=== PATIENT | male | born 1955 | race Two or more races ===

== ENCOUNTER 2019-03-12 11:36 | Emergency (ER) | payer MEDICAID ==
[~2019-03-12] VITALS: Ht 170.2 cm; Wt 85.3 kg
[2019-03-12 13:18] LABS: Basophils # (auto) 0 uL; Basophils % (auto) 0.4 % (0.0-2.0); Eosinophils # (auto) 0.1 uL; Hematocrit 34.2 % (41.0-53.0); Hemoglobin 11.3 g/dL (13.5-17.5); Lymphocytes # (auto) 1.7 uL; Lymphocytes % (auto) 19.1 % (10.0-50.0); Mean Corpuscular Hemoglobin 27.5 pg (28.0-32.0); Mean Corpuscular Hgb Conc. 33.2 g/dL (32.0-36.0); Neutrophils # (auto) 6.4 uL; Nucleated Red Blood Cells % 0.1 %; Red Cell Distribution Width 14.5 % (11.8-14.3); White Blood Cell 8.9 10^3/uL (4.4-10.8)
[2019-03-12 13:21] LABS: Eosinophils % (auto) 1.4 % (0.0-7.0); Monocytes # (auto) 0.6 uL; Neutrophils % (auto) 72.1 % (37.0-80.0); Platelet Count (auto) 459 10^3/uL (140-450); Red Blood Cells 4.12 10^6/uL (4.5-5.90)
[2019-03-12 13:36] LABS: Alanine Aminotransferase 34 U/L (16-61); Albumin 1.6 g/dL (3.4-5.0); Anion Gap 6 (5-15); Aspartate Aminotransferase 30 U/L (15-37); BUN/Creatinine Ratio 14.4; Blood Urea Nitrogen 14 mg/dL (7-18); Calcium 8.2 mg/dL (8.5-10.1); Carbon Dioxide 27 mmol/L (21-32); Chloride 109 mmol/L (98-107); GFR African American 101 mL/min; GFR Non-African American 83 mL/min; Glucose 245 mg/dL (74-106); Potassium 3.9 mmol/L (3.5-5.1); Sodium 142 mmol/L (136-145)
[2019-03-12 13:40] LABS: Alkaline Phosphatase 217 U/L (45-117); Bilirubin, Total 0.4 mg/dL (0.2-1.0); Total Protein 6.4 g/dL (6.4-8.2)
[2019-03-12] MEDS ORDERED: cloNIDine HCL 0.1 MG TAB PO ONE (17:00)
[2019-03-12] MEDS ORDERED: cloNIDine HCL 0.1 MG TAB ONE (17:07)
[2019-03-12 18:18] VITALS: BP 142/78
== END 2019-03-12 18:45 | disposition home or self-care (01) ==
LOC: ER 11:41
DX: I16.0 Hypertensive urgency (principal); R73.9 Hyperglycemia, unspecified; Z90.49 Acquired absence of other specified parts of digestive tract
CPT/HCPCS: 36415; 71046; 80053; 83036; 84484; 85025; 93005

== ENCOUNTER 2021-04-23 11:19 | Emergency (ER) | payer MEDICAID ==
[~2021-04-23] VITALS: Ht 167.6 cm; Wt 81.6 kg
[2021-04-23 12:45] LABS: Basophils # (auto) 0.1 10 ^3/uL (0-0.2); Basophils % (auto) 1.3 % (0.0-2.0); Eosinophils # (auto) 0.2 10 ^3/uL (0-0.8); Eosinophils % (auto) 3.2 % (0.0-7.0); Hematocrit 37.9 % (41.0-53.0); Hemoglobin 12.7 g/dL (13.5-17.5); Lymphocytes # (auto) 2.2 10 ^3/uL (0.4-5.4); Lymphocytes % (auto) 27.9 % (10.0-50.0); Mean Corpuscular Hemoglobin 27.5 pg (28.0-32.0); Mean Corpuscular Hgb Conc. 33.4 g/dL (32.0-36.0); Mean Corpuscular Volume 82.3 fL (80.0-100.0); Monocytes # (auto) 0.4 10 ^3/uL (0-1.3); Monocytes % (auto) 5.8 % (0.0-12.0); Neutrophils # (auto) 4.8 10 ^3/uL (1.6-8.6); Neutrophils % (auto) 61.8 % (37.0-80.0); Nucleated Red Blood Cells % 0.2 %; Red Blood Cells 4.61 10^6/uL (4.5-5.90); Red Cell Distribution Width 14.3 % (11.8-14.3); White Blood Cell 7.7 10^3/uL (4.4-10.8)
[2021-04-23 13:02] LABS: Albumin 2.8 g/dL (3.4-5.0); Calcium 8.4 mg/dL (8.5-10.1); Potassium 4.6 mmol/L (3.5-5.1)
[2021-04-23 13:06] LABS: BUN/Creatinine Ratio 28.3; Bilirubin, Total 0.3 mg/dL (0.2-1.0)
[2021-04-23] MEDS ORDERED: LOSA25TA38 PO (14:57)
[2021-04-23 15:16] VITALS: BP 158/72
== END 2021-04-23 15:18 | disposition home or self-care (01) ==
LOC: ER 11:19
DX: I16.0 Hypertensive urgency (principal); Z90.49 Acquired absence of other specified parts of digestive tract
CPT/HCPCS: 36415; 80053; 84484; 85025; 93005

== ENCOUNTER 2022-01-31 18:13 | Inpatient (IN) | payer OTHER, MEDICAID ==
[~2022-01-31] VITALS: Ht 167.6 cm; Wt 86.4 kg
[~2022-01-31 18:13] MED LIST: LOSA25TA38 PO
[2022-01-31] MEDS ORDERED: FUROSEMIDE 40 MG/4 ML VIAL IV ONE ×2 (19:00→22:30)
[2022-01-31 19:18] LABS: Basophils # (auto) 0.1 10 ^3/uL (0-0.2); Eosinophils # (auto) 0.2 10 ^3/uL (0-0.8); Eosinophils % (auto) 2.7 % (0.0-7.0); Hematocrit 34.6 % (41.0-53.0); Hemoglobin 10.8 g/dL (13.5-17.5); Lymphocytes # (auto) 1.5 10 ^3/uL (0.4-5.4); Lymphocytes % (auto) 21.7 % (10.0-50.0); Mean Corpuscular Hemoglobin 26.6 pg (28.0-32.0); Mean Corpuscular Hgb Conc. 31.3 g/dL (32.0-36.0); Monocytes # (auto) 0.5 10 ^3/uL (0-1.3); Monocytes % (auto) 6.5 % (0.0-12.0); Neutrophils # (auto) 4.7 10 ^3/uL (1.6-8.6); Neutrophils % (auto) 68.1 % (37.0-80.0); Nucleated Red Blood Cells % 0.2 %; Red Blood Cells 4.07 10^6/uL (4.5-5.90); Red Cell Distribution Width 15.2 % (11.8-14.3)
[2022-01-31 19:38] LABS: Albumin 2.7 g/dL (3.4-5.0); Calcium 8.6 mg/dL (8.5-10.1); Potassium 5.5 mmol/L (3.5-5.1)
[2022-01-31 19:42] LABS: Bilirubin, Total 0.3 mg/dL (0.2-1.0); Total Protein 6.6 g/dL (6.4-8.2)
[2022-01-31] MEDS ORDERED: ASPirin 81 mg TAB PO ONE (21:00)
[2022-01-31] MEDS ORDERED: ALBUMIN 25% 100 ML IV ONE (22:30)
[2022-01-31] MEDS ORDERED: DOCUSATE SOD 100 MG CAP PO PRN (22:30)
[2022-01-31] MEDS ORDERED: ONDANSETRON HCL 4 MG/2 ML VIAL IV PRN (22:30)
[2022-01-31] MEDS ORDERED: HYDROcodone-ACET 5/325MG TAB PO PRN (22:30)
[2022-01-31] MEDS ORDERED: hydrALAZINE HCL 20 MG/ML VL IV PRN (22:30)
[2022-01-31] MEDS ORDERED: DEXTROSE (50%) 50ML SYRG IV PRN (22:30)
[2022-01-31] MEDS ORDERED: ACETAMINOPHEN 325 MG TAB PO PRN (22:30)
[2022-01-31] MEDS ORDERED: IPRATROPIUM BROM 0.5 MG/2.5ML INH SOL NEB PRN (22:30)
[2022-01-31] MEDS ORDERED: ALBUTEROL SULF 2.5 MG/0.5ML(0.5%) NEB SOLN NEB PRN (22:30)
[2022-01-31] MEDS ORDERED: MORPHINE SULFATE INJ 2 MG/ml SYRG IV PRN (23:15)
[2022-01-31] MEDS ORDERED: NITROGLYCERIN 0.4 MG SL TAB SL PRN (23:15)
[2022-02-01] MEDS ORDERED: SODIUM ZIRCONIUM CYCL 10 GM PAK PO ONE (01:00)
[2022-02-01] MEDS ORDERED: HEPARIN SODIUM (PORCINE) 5000 UNITS/ML 1ML VIAL IV ONE (01:00)
[2022-02-01 01:46] VITALS: BP 129/65
[2022-02-01] MEDS: SODIUM CHLOR 0.9% PF (SALINE LOCK) 10ML VIAL/SYR IV SCH ×3 (06:00→21:34)
[2022-02-01] MEDS: ACCU-CHEK COMFORT CURVE STRIP VI SCH ×4 (08:26→21:40)
[2022-02-01] MEDS: InsuLIN REG 1unit/0.01ml Soln (100units/ml) SC SCH ×4 (08:27→21:46)
[2022-02-01] MEDS ORDERED: HEPARIN SODIUM (PORCINE) 5000 UNITS/ML 1ML VIAL SC SCH (10:00)
[2022-02-01 10:03] LABS: Basophils # (auto) 0 10 ^3/uL (0-0.2); Eosinophils # (auto) 0.3 10 ^3/uL (0-0.8); Lymphocytes # (auto) 1.9 10 ^3/uL (0.4-5.4); Monocytes # (auto) 0.6 10 ^3/uL (0-1.3); White Blood Cell 8.7 10^3/uL (4.4-10.8)
[2022-02-01 10:04] LABS: Basophils % (auto) 0.3 % (0.0-2.0); Eosinophils % (auto) 3.8 % (0.0-7.0); Hematocrit 31.9 % (41.0-53.0); Hemoglobin 9.9 g/dL (13.5-17.5); Lymphocytes % (auto) 22.2 % (10.0-50.0); Mean Corpuscular Hemoglobin 26.3 pg (28.0-32.0); Mean Corpuscular Hgb Conc. 31.1 g/dL (32.0-36.0); Mean Corpuscular Volume 84.5 fL (80.0-100.0); Monocytes % (auto) 6.4 % (0.0-12.0); Neutrophils # (auto) 5.8 10 ^3/uL (1.6-8.6); Neutrophils % (auto) 67.3 % (37.0-80.0); Nucleated Red Blood Cells % 0.2 %; Red Blood Cells 3.77 10^6/uL (4.5-5.90); Red Cell Distribution Width 14.9 % (11.8-14.3)
[2022-02-01 11:08] LABS: Potassium 4.5 mmol/L (3.5-5.1)
[2022-02-01 11:15] LABS: Albumin 2.8 g/dL (3.4-5.0); BUN/Creatinine Ratio 25.4; Calcium 8.6 mg/dL (8.5-10.1)
[2022-02-01 11:17] LABS: Bilirubin, Total 0.4 mg/dL (0.2-1.0); Total Protein 6.4 g/dL (6.4-8.2)
[2022-02-01] MEDS ORDERED: metOLazone 5 MG TAB PO ONE (11:30)
[2022-02-01] MEDS ORDERED: ENOXAPARIN SOD 100 MG/1 ML SYRINGE SC ONE (11:30)
[2022-02-01] MEDS: ASPirin 81 mg TAB PO SCH (11:35)
[2022-02-01] MEDS: FAMOTIDINE (10MG/ML) 2ML VL IV SCH ×2 (11:35→21:29)
[2022-02-01] MEDS ORDERED: OPTISON 3ml Vial for INJ IV ONE ×2 (11:39→12:30)
[2022-02-01] MEDS: FUROSEMIDE 40 MG/4 ML VIAL IV SCH (12:09)
[2022-02-01 12:18] VITALS: BP 158/75
[2022-02-01 13:00] VITALS: BP 158/75
[2022-02-01 17:00] VITALS: BP 174/75
[2022-02-01] MEDS ORDERED: DORZ2SOL26 EACHEYE (18:56)
[2022-02-01] MEDS ORDERED: LATA0.0019 OP/OT (18:56)
[2022-02-01] MEDS ORDERED: CYCL1SOL20 LEFTEYE (18:56)
[2022-02-01] MEDS ORDERED: TIMO0.5S32 OP (18:56)
[2022-02-01] MEDS ORDERED: PRED1SUS4 OP/OT (18:56)
[2022-02-01] MEDS ORDERED: BRIM0.2S17 EACHEYE (18:56)
[2022-02-01] MEDS: ATORVASTATIN 20 MG TAB PO SCH (21:28)
[2022-02-01 22:00] VITALS: BP 154/61
[2022-02-02 02:14] LABS: Urine Bacteria FEW /hpf (None Seen); Urine Blood 1+ /uL (Negative); Urine Specific Gravity 1.013 (1.001-1.035); Urine WBC 2 /hpf (0 - 3)
[2022-02-02 05:00] VITALS: BP 123/86
[2022-02-02] MEDS: InsuLIN REG 1unit/0.01ml Soln (100units/ml) SC SCH ×4 (06:19→21:43)
[2022-02-02] MEDS: ACCU-CHEK COMFORT CURVE STRIP VI SCH ×4 (06:19→21:39)
[2022-02-02] MEDS: SODIUM CHLOR 0.9% PF (SALINE LOCK) 10ML VIAL/SYR IV SCH ×3 (06:19→21:39)
[2022-02-02 07:05] LABS: INR 1.18 (0.9-1.15); Partial Thromboplastin Time 28.9 sec (24.6-33.4)
[2022-02-02 09:00] VITALS: BP 128/48
[2022-02-02] MEDS: FAMOTIDINE (10MG/ML) 2ML VL IV SCH ×2 (10:06→21:38)
[2022-02-02] MEDS: ASPirin 81 mg TAB PO SCH (10:06)
[2022-02-02] MEDS: FUROSEMIDE 40 MG/4 ML VIAL IV SCH (10:07)
[2022-02-02 12:23] LABS: BUN/Creatinine Ratio 27.2; Calcium 8.9 mg/dL (8.5-10.1); Potassium 4.6 mmol/L (3.5-5.1)
[2022-02-02 13:00] VITALS: BP 144/59
[2022-02-02 14:10] LABS: Protein, Urine 301.9 mg/dL (0.0-11.9)
[2022-02-02 17:00] VITALS: BP 153/64
[2022-02-02 20:00] VITALS: BP 136/70
[2022-02-02] MEDS: ATORVASTATIN 20 MG TAB PO SCH (21:39)
[2022-02-02 22:00] VITALS: BP 136/70
[2022-02-03] MEDS: SODIUM CHLOR 0.9% PF (SALINE LOCK) 10ML VIAL/SYR IV SCH ×3 (05:36→22:33)
[2022-02-03 06:00] VITALS: BP 134/49
[2022-02-03] MEDS: ACCU-CHEK COMFORT CURVE STRIP VI SCH ×4 (06:43→22:28)
[2022-02-03] MEDS: InsuLIN REG 1unit/0.01ml Soln (100units/ml) SC SCH ×4 (06:47→22:29)
[2022-02-03 09:00] VITALS: BP 123/40
[2022-02-03] MEDS: FUROSEMIDE 40 MG/4 ML VIAL IV SCH (10:32)
[2022-02-03] MEDS: FAMOTIDINE (10MG/ML) 2ML VL IV SCH ×2 (10:32→22:42)
[2022-02-03] MEDS: ASPirin 81 mg TAB PO SCH (10:33)
[2022-02-03 13:00] VITALS: BP_SYST 155; BP_SYST 160; BP_DIAS 68; BP_DIAS 72
[2022-02-03] MEDS ORDERED: HEPARIN SODIUM (PORCINE) 5000 UNITS/ML 1ML VIAL SC ONE (15:00)
[2022-02-03] MEDS ORDERED: CARVEDILOL 12.5 MG TAB PO ONE (15:00)
[2022-02-03 17:00] VITALS: BP 159/63
[2022-02-03] MEDS: DOBUTamine 1000MCG/ML 250 ML IV SCH (17:18)
[2022-02-03 22:00] VITALS: BP 108/43
[2022-02-03] MEDS: ACETYLCYSTEINE ORAL for CIN 20%(200MG/ML) 4ML PO SCH (22:00)
[2022-02-03] MEDS: ATORVASTATIN 20 MG TAB PO SCH (22:24)
[2022-02-03] MEDS: CARVEDILOL 12.5 MG TAB PO SCH (22:25)
[2022-02-03] MEDS: HEPARIN SODIUM (PORCINE) 5000 UNITS/ML 1ML VIAL SC SCH (22:33)
[2022-02-04] VITALS (10 sets, daily range): BP systolic 88–125; BP diastolic 34–61
[2022-02-04] MEDS: SODIUM CHLOR 0.9% PF (SALINE LOCK) 10ML VIAL/SYR IV SCH ×3 (05:38→22:49)
[2022-02-04] MEDS: InsuLIN REG 1unit/0.01ml Soln (100units/ml) SC SCH ×4 (06:03→22:48)
[2022-02-04] MEDS: ACCU-CHEK COMFORT CURVE STRIP VI SCH ×4 (06:03→22:49)
[2022-02-04 06:47] LABS: INR 1.15 (0.9-1.15); Partial Thromboplastin Time 26.6 sec (24.6-33.4)
[2022-02-04 06:50] LABS: Calcium 8.6 mg/dL (8.5-10.1); Potassium 4.8 mmol/L (3.5-5.1)
[2022-02-04] MEDS: FUROSEMIDE 40 MG/4 ML VIAL IV SCH (09:21)
[2022-02-04] MEDS: ASPirin 81 mg TAB PO SCH (09:21)
[2022-02-04] MEDS: CARVEDILOL 12.5 MG TAB PO SCH ×2 (09:22→22:42)
[2022-02-04] MEDS: ACETYLCYSTEINE ORAL for CIN 20%(200MG/ML) 4ML PO SCH ×2 (09:23→22:49)
[2022-02-04] MEDS: HEPARIN SODIUM (PORCINE) 5000 UNITS/ML 1ML VIAL SC SCH ×2 (09:23→22:48)
[2022-02-04] MEDS: DOBUTamine 1000MCG/ML 250 ML IV SCH ×2 (09:24→20:59)
[2022-02-04 10:06] LABS: Basophils # (auto) 0.1 10 ^3/uL (0-0.2); Eosinophils # (auto) 0.3 10 ^3/uL (0-0.8); Lymphocytes # (auto) 1.3 10 ^3/uL (0.4-5.4); Monocytes # (auto) 0.5 10 ^3/uL (0-1.3); Neutrophils # (auto) 3.9 10 ^3/uL (1.6-8.6); White Blood Cell 6.1 10^3/uL (4.4-10.8)
[2022-02-04 10:09] LABS: Basophils % (auto) 1.4 % (0.0-2.0); Eosinophils % (auto) 4.7 % (0.0-7.0); Hematocrit 27.8 % (41.0-53.0); Lymphocytes % (auto) 21.2 % (10.0-50.0); Mean Corpuscular Hemoglobin 27.3 pg (28.0-32.0); Mean Corpuscular Hgb Conc. 32.5 g/dL (32.0-36.0); Monocytes % (auto) 8.6 % (0.0-12.0); Neutrophils % (auto) 64.1 % (37.0-80.0); Red Blood Cells 3.31 10^6/uL (4.5-5.90); Red Cell Distribution Width 15.1 % (11.8-14.3)
[2022-02-04] MEDS ORDERED: IODIXANOL 320MG/ML 100ML BTL IV ONE (10:21)
[2022-02-04] MEDS ORDERED: LIDOCAINE 2%HCL (LOCAL ANESTH.) INJ 20ML MDV ONE (10:21)
[2022-02-04] MEDS ORDERED: HEPARIN SODIUM (PORCINE) 5000 UNITS/ML 1ML VIAL ONE (10:32)
[2022-02-04] MEDS ORDERED: ANGIOMAX 250 MG VIAL IV ONE (10:32)
[2022-02-04] MEDS ORDERED: VERAPAMIL 2.5MG/ML INJ 2ML VIAL IV ONE (10:32)
[2022-02-04] MEDS ORDERED: MIDAZOLAM HCL 2MG/2ML 2ml VIAL (1mg/ml) ONE (10:33)
[2022-02-04] MEDS ORDERED: fentaNYL CITRATE 100 MCG/2 ML VL ONE (10:33)
[2022-02-04] MEDS ORDERED: SODIUM CHL 0.9% 0 ML ONE (10:33)
[2022-02-04] MEDS: ATORVASTATIN 20 MG TAB PO SCH (22:41)
[2022-02-05 05:00] VITALS: BP 120/60
[2022-02-05] MEDS: SODIUM CHLOR 0.9% PF (SALINE LOCK) 10ML VIAL/SYR IV SCH ×3 (06:11→22:02)
[2022-02-05] MEDS: ACCU-CHEK COMFORT CURVE STRIP VI SCH ×4 (06:11→22:03)
[2022-02-05] MEDS: InsuLIN REG 1unit/0.01ml Soln (100units/ml) SC SCH ×4 (06:38→22:03)
[2022-02-05 08:00] VITALS: BP 102/59
[2022-02-05 12:00] VITALS: BP 120/63
[2022-02-05] MEDS: ASPirin 81 mg TAB PO SCH (12:26)
[2022-02-05] MEDS: CARVEDILOL 12.5 MG TAB PO SCH ×2 (12:27→22:02)
[2022-02-05] MEDS: HEPARIN SODIUM (PORCINE) 5000 UNITS/ML 1ML VIAL SC SCH ×2 (12:38→22:03)
[2022-02-05] MEDS: FUROSEMIDE 40 MG/4 ML VIAL IV SCH (12:45)
[2022-02-05 13:53] LABS: Basophils # (auto) 0.1 10 ^3/uL (0-0.2); Basophils % (auto) 1.1 % (0.0-2.0); Eosinophils # (auto) 0.2 10 ^3/uL (0-0.8); Eosinophils % (auto) 2.8 % (0.0-7.0); Hematocrit 29.5 % (41.0-53.0); Hemoglobin 9.4 g/dL (13.5-17.5); Lymphocytes # (auto) 1.3 10 ^3/uL (0.4-5.4); Lymphocytes % (auto) 18.6 % (10.0-50.0); Mean Corpuscular Hgb Conc. 31.8 g/dL (32.0-36.0); Mean Corpuscular Volume 84.9 fL (80.0-100.0); Monocytes # (auto) 0.5 10 ^3/uL (0-1.3); Monocytes % (auto) 6.9 % (0.0-12.0); Neutrophils % (auto) 70.6 % (37.0-80.0); Red Blood Cells 3.47 10^6/uL (4.5-5.90); Red Cell Distribution Width 15.6 % (11.8-14.3); White Blood Cell 7.1 10^3/uL (4.4-10.8)
[2022-02-05 14:02] LABS: Albumin 2.8 g/dL (3.4-5.0); Calcium 8.9 mg/dL (8.5-10.1)
[2022-02-05 14:10] LABS: BUN/Creatinine Ratio 27.3; Bilirubin, Total 0.3 mg/dL (0.2-1.0)
[2022-02-05 16:00] VITALS: BP 122/59
[2022-02-05] MEDS: TAMSULOSIN HYDROCHLORIDE 0.4 MG CAP PO SCH (19:09)
[2022-02-05 22:00] VITALS: BP 121/37
[2022-02-05] MEDS: ATORVASTATIN 20 MG TAB PO SCH (22:02)
[2022-02-06 05:00] VITALS: BP 139/67
[2022-02-06] MEDS: SODIUM CHLOR 0.9% PF (SALINE LOCK) 10ML VIAL/SYR IV SCH ×3 (06:10→22:13)
[2022-02-06] MEDS: ACCU-CHEK COMFORT CURVE STRIP VI SCH ×4 (06:10→22:12)
[2022-02-06] MEDS: InsuLIN REG 1unit/0.01ml Soln (100units/ml) SC SCH ×4 (06:10→22:12)
[2022-02-06 08:00] VITALS: BP 131/55
[2022-02-06 08:37] VITALS: BP 131/55
[2022-02-06] MEDS: CARVEDILOL 12.5 MG TAB PO SCH ×2 (08:43→22:01)
[2022-02-06] MEDS: HEPARIN SODIUM (PORCINE) 5000 UNITS/ML 1ML VIAL SC SCH ×2 (08:44→22:12)
[2022-02-06] MEDS: FUROSEMIDE 40 MG/4 ML VIAL IV SCH (08:44)
[2022-02-06] MEDS: ASPirin 81 mg TAB PO SCH (08:44)
[2022-02-06 12:33] VITALS: BP 136/62
[2022-02-06] MEDS: DOBUTamine 1000MCG/ML 250 ML IV SCH ×2 (14:53→18:47)
[2022-02-06 16:29] VITALS: BP 138/48
[2022-02-06] MEDS: TAMSULOSIN HYDROCHLORIDE 0.4 MG CAP PO SCH (17:02)
[2022-02-06] MEDS: ATORVASTATIN 20 MG TAB PO SCH (21:59)
[2022-02-06 22:00] VITALS: BP 147/58
[2022-02-07 05:00] VITALS: BP 143/70
[2022-02-07] MEDS: SODIUM CHLOR 0.9% PF (SALINE LOCK) 10ML VIAL/SYR IV SCH ×3 (06:30→21:59)
[2022-02-07] MEDS: ACCU-CHEK COMFORT CURVE STRIP VI SCH ×4 (06:31→22:01)
[2022-02-07] MEDS: InsuLIN REG 1unit/0.01ml Soln (100units/ml) SC SCH ×4 (06:32→21:49)
[2022-02-07 09:36] VITALS: BP 144/59
[2022-02-07] MEDS: CARVEDILOL 12.5 MG TAB PO SCH ×2 (10:27→22:00)
[2022-02-07] MEDS: FUROSEMIDE 40 MG/4 ML VIAL IV SCH (10:28)
[2022-02-07] MEDS: HEPARIN SODIUM (PORCINE) 5000 UNITS/ML 1ML VIAL SC SCH ×2 (10:28→22:10)
[2022-02-07] MEDS: ASPirin 81 mg TAB PO SCH (10:28)
[2022-02-07 12:15] LABS: Albumin 2.6 g/dL (3.4-5.0); BUN/Creatinine Ratio 29.7; Calcium 8.3 mg/dL (8.5-10.1); Potassium 4.5 mmol/L (3.5-5.1)
[2022-02-07 12:18] LABS: Bilirubin, Total 0.5 mg/dL (0.2-1.0); Total Protein 6.6 g/dL (6.4-8.2)
[2022-02-07] MEDS ORDERED: FUROSEMIDE 100 MG/10ML VIAL IV ONE (12:30)
[2022-02-07 12:54] VITALS: BP 139/67
[2022-02-07] MEDS: DOBUTamine 1000MCG/ML 250 ML IV SCH (15:32)
[2022-02-07 16:54] VITALS: BP 142/62
[2022-02-07 17:14] VITALS: BP 142/62
[2022-02-07] MEDS: TAMSULOSIN HYDROCHLORIDE 0.4 MG CAP PO SCH (18:10)
[2022-02-07 22:00] VITALS: BP 128/31
[2022-02-07] MEDS: ATORVASTATIN 20 MG TAB PO SCH (22:00)
[2022-02-08 05:00] VITALS: BP 123/52
[2022-02-08] MEDS: SODIUM CHLOR 0.9% PF (SALINE LOCK) 10ML VIAL/SYR IV SCH ×3 (06:23→22:06)
[2022-02-08] MEDS: InsuLIN REG 1unit/0.01ml Soln (100units/ml) SC SCH ×4 (06:24→22:16)
[2022-02-08] MEDS: ACCU-CHEK COMFORT CURVE STRIP VI SCH ×4 (06:24→22:07)
[2022-02-08] MEDS: DOBUTamine 1000MCG/ML 250 ML IV SCH (08:40)
[2022-02-08 09:21] LABS: Albumin 2.9 g/dL (3.4-5.0); Calcium 8.7 mg/dL (8.5-10.1); Potassium 4.6 mmol/L (3.5-5.1)
[2022-02-08 09:25] LABS: BUN/Creatinine Ratio 33.7; Bilirubin, Total 0.4 mg/dL (0.2-1.0); Total Protein 6.7 g/dL (6.4-8.2)
[2022-02-08] MEDS: ASPirin 81 mg TAB PO SCH (10:05)
[2022-02-08] MEDS: FUROSEMIDE 40 MG/4 ML VIAL IV SCH (10:05)
[2022-02-08] MEDS: CARVEDILOL 12.5 MG TAB PO SCH ×2 (10:06→22:07)
[2022-02-08] MEDS: HEPARIN SODIUM (PORCINE) 5000 UNITS/ML 1ML VIAL SC SCH ×2 (10:07→22:17)
[2022-02-08 13:00] VITALS: BP 141/61
[2022-02-08] MEDS: BUMETANIDE 2.5mg/10ml (0.25 mg/ml) INJ IV SCH ×2 (16:04→18:32)
[2022-02-08 17:00] VITALS: BP 134/53
[2022-02-08] MEDS: TAMSULOSIN HYDROCHLORIDE 0.4 MG CAP PO SCH (18:32)
[2022-02-08 22:00] VITALS: BP 146/58
[2022-02-08] MEDS: ATORVASTATIN 20 MG TAB PO SCH (22:07)
[2022-02-09] MEDS: DOBUTamine 1000MCG/ML 250 ML IV SCH ×2 (04:23→23:24)
[2022-02-09 05:00] VITALS: BP 135/60
[2022-02-09] MEDS: ACCU-CHEK COMFORT CURVE STRIP VI SCH ×4 (06:21→22:09)
[2022-02-09] MEDS: InsuLIN REG 1unit/0.01ml Soln (100units/ml) SC SCH ×4 (06:21→22:07)
[2022-02-09] MEDS: SODIUM CHLOR 0.9% PF (SALINE LOCK) 10ML VIAL/SYR IV SCH ×3 (06:21→22:08)
[2022-02-09] MEDS: BUMETANIDE 2.5mg/10ml (0.25 mg/ml) INJ IV SCH ×2 (06:27→17:24)
[2022-02-09 09:15] VITALS: BP 130/66
[2022-02-09] MEDS: ASPirin 81 mg TAB PO SCH (09:15)
[2022-02-09] MEDS: CARVEDILOL 12.5 MG TAB PO SCH ×2 (09:16→22:08)
[2022-02-09] MEDS: HEPARIN SODIUM (PORCINE) 5000 UNITS/ML 1ML VIAL SC SCH ×2 (09:17→22:10)
[2022-02-09 13:00] VITALS: BP 132/45
[2022-02-09 17:00] VITALS: BP 133/55
[2022-02-09] MEDS: TAMSULOSIN HYDROCHLORIDE 0.4 MG CAP PO SCH (17:35)
[2022-02-09 22:00] VITALS: BP 134/38
[2022-02-09] MEDS: ATORVASTATIN 20 MG TAB PO SCH (22:08)
[2022-02-10 05:00] VITALS: BP 130/50
[2022-02-10] MEDS: InsuLIN REG 1unit/0.01ml Soln (100units/ml) SC SCH ×4 (05:13→22:36)
[2022-02-10] MEDS: SODIUM CHLOR 0.9% PF (SALINE LOCK) 10ML VIAL/SYR IV SCH ×3 (05:14→21:59)
[2022-02-10] MEDS: ACCU-CHEK COMFORT CURVE STRIP VI SCH ×4 (05:41→21:59)
[2022-02-10] MEDS: BUMETANIDE 2.5mg/10ml (0.25 mg/ml) INJ IV SCH ×2 (05:41→17:36)
[2022-02-10 09:00] VITALS: BP 144/50
[2022-02-10] MEDS: ASPirin 81 mg TAB PO SCH (10:27)
[2022-02-10] MEDS: CARVEDILOL 12.5 MG TAB PO SCH ×2 (10:28→22:39)
[2022-02-10] MEDS: HEPARIN SODIUM (PORCINE) 5000 UNITS/ML 1ML VIAL SC SCH ×2 (10:28→22:36)
[2022-02-10 12:33] LABS: Calcium 8.4 mg/dL (8.5-10.1); Potassium 3.9 mmol/L (3.5-5.1)
[2022-02-10 12:37] LABS: BUN/Creatinine Ratio 36.4
[2022-02-10 13:00] VITALS: BP 126/49
[2022-02-10 16:56] VITALS: BP 122/95
[2022-02-10] MEDS: TAMSULOSIN HYDROCHLORIDE 0.4 MG CAP PO SCH (17:36)
[2022-02-10] MEDS: DOBUTamine 1000MCG/ML 250 ML IV SCH (17:49)
[2022-02-10] MEDS ORDERED: PATIENTS OWN MEDICATION LEFTEYE SCH ×2 (22:00)
[2022-02-10] MEDS ORDERED: PATIENTS OWN MEDICATION EACHEYE SCH (22:00)
[2022-02-10] MEDS ORDERED: BRIMONIDINE 0.2% RIGHTEYE SCH (22:00)
[2022-02-10] MEDS ORDERED: PATIENTS OWN MEDICATION RIGHTEYE SCH ×3 (22:00)
[2022-02-10] MEDS ORDERED: [UNRECOGNIZED DRUG - OTHER] LEFTEYE SCH (22:00)
[2022-02-10] MEDS ORDERED: CYCLOPENTOLATE 1% LEFTEYE SCH (22:00)
[2022-02-10] MEDS: ATORVASTATIN 20 MG TAB PO SCH (22:39)
[2022-02-10 23:13] VITALS: BP 148/65
[2022-02-11 01:37] VITALS: BP 135/63
== END 2022-02-11 02:55 | disposition short-term general hospital (02) | DRG 280 ==
LOC: ER 18:13 → TELE 23:01 → TELE-WESTW 02-01 10:41
PROVIDERS: ADMIT Nurse Practitioner Family; ATTEND Family Medicine
PROC: 4A023N7 Measurement of Cardiac Sampling and Pressure, Left Heart, Percutaneous Approach (ICD-10-PCS; principal; 2022-02-04)
PROC: B211YZZ Fluoroscopy of Multiple Coronary Arteries using Other Contrast (ICD-10-PCS; 2022-02-04)
PROC: B215YZZ Fluoroscopy of Left Heart using Other Contrast (ICD-10-PCS; 2022-02-04)
DX: I13.0 Hypertensive heart and chronic kidney disease with heart failure and stage 1 through stage 4 chronic kidney disease, or unspecified chronic kidney disease (principal); I50.23 Acute on chronic systolic (congestive) heart failure; I21.A1 Myocardial infarction type 2; N17.0 Acute kidney failure with tubular necrosis; E88.09 Other disorders of plasma-protein metabolism, not elsewhere classified; R09.02 Hypoxemia; E11.65 Type 2 diabetes mellitus with hyperglycemia; N18.9 Chronic kidney disease, unspecified; E87.5 Hyperkalemia; Z20.822 Contact with and (suspected) exposure to COVID-19; D63.1 Anemia in chronic kidney disease; E11.22 Type 2 diabetes mellitus with diabetic chronic kidney disease; E78.5 Hyperlipidemia, unspecified; I25.10 Atherosclerotic heart disease of native coronary artery without angina pectoris; E11.51 Type 2 diabetes mellitus with diabetic peripheral angiopathy without gangrene; E66.01 Morbid (severe) obesity due to excess calories; Z68.31 Body mass index [BMI] 31.0-31.9, adult; Z90.49 Acquired absence of other specified parts of digestive tract
CPT/HCPCS: 36415; 71045; 76775; 78582; 80048; 80053; 80061; 81001; 82306; 82570; 82962; 83036; 83880; 83970; 84100; 84156; 84300; 84484; 85025; 85379; 85610; 85730; 86850; 86900; 86901; 87426; 87804; 93005; 93306; 93350; 93458; 93970; 96365; 96375; 99152; 99153; 99291; G0378; J1815; J2250; J3490; P9047; Q9956; Q9967

== ENCOUNTER → 2022-04-06 | Outpatient (CLI) | payer OTHER, MEDICAID ==
[~2022-04-06] MED LIST changes: +BRIM0.2S17 EACHEYE; +CYCL1SOL20 LEFTEYE; +DORZ2SOL26 EACHEYE; +LATA0.0019 OP/OT; +PRED1SUS4 OP/OT; +TIMO0.5S32 OP
== END | disposition home or self-care (01) ==
LOC: XYW 07:27
PROVIDERS: ATTEND Internal Medicine
DX: I08.1 Rheumatic disorders of both mitral and tricuspid valves (principal); I50.22 Chronic systolic (congestive) heart failure
CPT/HCPCS: 93306

== ENCOUNTER 2022-05-27 22:59 | Inpatient (IN) | payer OTHER, MEDICAID ==
[~2022-05-27] VITALS: Ht 167.6 cm; Wt 57.0 kg
[2022-05-27 21:31] VITALS: BP 105/54
[2022-05-27] MEDS ORDERED: ETOMIDATE (2MG/ML) 20ML VIAL IV ONE ×2 (23:11→23:30)
[2022-05-27] MEDS ORDERED: ROCURONIUM 10MG/ML 10ML VIAL IV ONE ×2 (23:11→23:30)
[2022-05-27] MEDS ORDERED: MIDAZOLAM HCL 5 MG/ML-1ML VIAL ONE (23:11)
[2022-05-27] MEDS ORDERED: MIDAZOLAM DRIP 50 mg/50mL 50 ML IV ONE (23:21)
[2022-05-27] MEDS ORDERED: HEPARIN SODIUM (PORCINE) 5000 UNITS/ML 1ML VIAL ONE (23:23)
[2022-05-27] MEDS: HEPARIN SODIUM (PORCINE) 5000 UNITS/ML 1ML VIAL IV ONE (23:24)
[2022-05-27 23:30] VITALS: BP 110/51
[2022-05-27] MEDS: MIDAZOLAM DRIP 50 mg/50mL 50 ML IV SCH (23:30)
[2022-05-27 23:46] LABS: Basophils # (auto) 0.1 10 ^3/uL (0-0.2); Basophils % (auto) 0.4 % (0.0-2.0); Eosinophils # (auto) 0 10 ^3/uL (0-0.8); Hematocrit 29.3 % (41.0-53.0); Hemoglobin 9.6 g/dL (13.5-17.5); Lymphocytes % (auto) 8.8 % (10.0-50.0); Mean Corpuscular Hemoglobin 26.8 pg (28.0-32.0); Mean Corpuscular Hgb Conc. 32.9 g/dL (32.0-36.0); Mean Corpuscular Volume 81.6 fL (80.0-100.0); Monocytes # (auto) 0.6 10 ^3/uL (0-1.3); Monocytes % (auto) 5.2 % (0.0-12.0); Neutrophils # (auto) 10.1 10 ^3/uL (1.6-8.6); Neutrophils % (auto) 85.6 % (37.0-80.0); Red Blood Cells 3.59 10^6/uL (4.5-5.90); Red Cell Distribution Width 16.2 % (11.8-14.3); White Blood Cell 11.8 10^3/uL (4.4-10.8)
[2022-05-27] MEDS ORDERED: SODIUM BICARBONATE 8.4 % INJ 50ML VIAL IV ONE (23:46)
[2022-05-27] MEDS ORDERED: AMIODARONE HCL (50 MG/ ML) 3 ML VIAL IV ONE (23:51)
[2022-05-28] VITALS (69 sets, daily range): BP systolic 83–148; BP diastolic 38–70
[2022-05-28] MEDS ORDERED: CALCIUM CHLOR(10%) 100MG/ML 10ML SYRINGE IV ONE (00:10)
[2022-05-28] MEDS: DOPamine 1600MCG/ML D5W 250 ML IV SCH ×3 (00:13→21:50)
[2022-05-28 00:15] LABS: Albumin 3.1 g/dL (3.4-5.0); BUN/Creatinine Ratio 26.9 (10.0-20.0); Calcium 9.1 mg/dL (8.5-10.1)
[2022-05-28 00:16] LABS: Lactic Acid w/Reflex 4.4 mmol/L (0.4-2.0)
[2022-05-28 00:18] LABS: Bilirubin, Total 0.6 mg/dL (0.2-1.0); Total Protein 7.1 g/dL (6.4-8.2)
[2022-05-28] MEDS ORDERED: ANGIOMAX 250 MG VIAL IV ONE (00:21)
[2022-05-28] MEDS ORDERED: fentaNYL CITRATE 100 MCG/2 ML VL ONE (00:21)
[2022-05-28] MEDS ORDERED: SODIUM CHL 0.9% 50 ML ONE (00:22)
[2022-05-28] MEDS ORDERED: MIDAZOLAM HCL 2MG/2ML 2ml VIAL (1mg/ml) ONE (00:22)
[2022-05-28 00:27] LABS: Potassium 8.7 mmol/L (3.5-5.1)
[2022-05-28] MEDS ORDERED: HEPARIN IN NS 1000Units/500mL 0 ML ONE (00:29)
[2022-05-28] MEDS ORDERED: DEXTROSE (50%) 50ML SYRG IV ONE ×2 (00:30→01:15)
[2022-05-28] MEDS ORDERED: InsuLIN REG 1unit/0.01ml Soln (100units/ml) IV ONE ×4 (00:30→19:00)
[2022-05-28] MEDS ORDERED: SODIUM BICARBONATE 8.4% INJ 50ML SYRINGE IV ONE (00:30)
[2022-05-28] MEDS ORDERED: CALCIUM GLUC 1,000mg/50ml-NS 50 ML IV ONE ×5 (00:30→19:15)
[2022-05-28] MEDS ORDERED: ALBUTEROL SULF 2.5 MG/0.5ML(0.5%) NEB SOLN NEB ONE ×3 (00:30→19:00)
[2022-05-28] MEDS ORDERED: LIDOCAINE 2%HCL (LOCAL ANESTH.) INJ 20ML MDV ONE (00:30)
[2022-05-28] MEDS ORDERED: InsuLIN REG 1unit/0.01ml Soln (100units/ml) ONE (00:30)
[2022-05-28] MEDS ORDERED: DOPamine 1600MCG/ML D5W 250 ML IV SCH (01:00)
[2022-05-28] MEDS ORDERED: HEPARIN DRIP/D5W 100UNITS/ML 250 ML IV SCH ×2 (01:15→12:15)
[2022-05-28] MEDS ORDERED: METOPROLOL TARTRATE 1MG/1ML-5ML VIAL IV PRN (01:30)
[2022-05-28] MEDS: EPINEPHrine HCL 250 ML IV SCH (01:47)
[2022-05-28 01:51] LABS: INR 1.28 (0.9-1.15); Partial Thromboplastin Time 51.5 sec (24.6-33.4)
[2022-05-28] MEDS: HEPARIN SODIUM (PORCINE) 5000 UNITS/ML 1ML VIAL IV ONE (02:07)
[2022-05-28] MEDS ORDERED: DOPamine 1600MCG/ML D5W 250 ML IV ONE (02:30)
[2022-05-28] MEDS ORDERED: MIDAZOLAM HCL 5 MG/ML-1ML VIAL IV ONE (02:30)
[2022-05-28] MEDS ORDERED: HEPARIN SODIUM (PORCINE) 5000 UNITS/ML 1ML VIAL IV ONE (02:30)
[2022-05-28] MEDS: MIDAZOLAM DRIP 50 mg/50mL 50 ML IV SCH ×4 (02:33→22:00)
[2022-05-28] MEDS ORDERED: ACETAMINOPHEN 325 MG TAB PO PRN (04:00)
[2022-05-28] MEDS ORDERED: FUROSEMIDE 40 MG/4 ML VIAL IV ONE (04:00)
[2022-05-28] MEDS ORDERED: MORPHINE SULFATE INJ 2 MG/ml SYRG IV PRN (04:00)
[2022-05-28] MEDS ORDERED: ONDANSETRON HCL 4 MG/2 ML VIAL IV PRN (04:00)
[2022-05-28] MEDS ORDERED: DEXTROSE (50%) 50ML SYRG IV PRN ×2 (04:00→14:30)
[2022-05-28] MEDS ORDERED: NITROGLYCERIN 0.4 MG SL TAB SL PRN (04:00)
[2022-05-28] MEDS ORDERED: SODIUM BICARBONATE 8.4 % INJ 50ML VIAL IV ONE ×2 (04:45→19:30)
[2022-05-28] MEDS: AZITHROMYCIN 500MG/ 250ML 250 ML IV SCH ×2 (04:48→09:30)
[2022-05-28] MEDS: cefTRIAXone 1GM/50ML D5W 50 ML IV SCH ×2 (04:48→09:30)
[2022-05-28] MEDS ORDERED: InsuLIN REG 1unit/0.01ml Soln (100units/ml) SC SCH (06:00)
[2022-05-28] MEDS ORDERED: ACCU-CHEK COMFORT CURVE STRIP VI SCH (06:00)
[2022-05-28] MEDS: ACCU-CHEK COMFORT CURVE STRIP VI SCH ×3 (06:22→18:40)
[2022-05-28] MEDS: InsuLIN REG 1unit/0.01ml Soln (100units/ml) SC SCH ×3 (06:28→18:40)
[2022-05-28] MEDS ORDERED: ACCU-CHEK COMFORT CURVE STRIP VI ONE (07:00)
[2022-05-28] MEDS ORDERED: SODIUM ZIRCONIUM CYCL 10 GM PAK PO ONE (08:30)
[2022-05-28] MEDS ORDERED: SODIUM BICARBONATE 50ML VIAL 150 ML in D5W 5% 1,000 ML IV ONE (08:30)
[2022-05-28 09:30] LABS: Basophils # (auto) 0 10 ^3/uL (0-0.2); Basophils % (auto) 0.2 % (0.0-2.0); Eosinophils # (auto) 0 10 ^3/uL (0-0.8); Red Blood Cells 3.44 10^6/uL (4.5-5.90)
[2022-05-28] MEDS: PANTOPRAZOLE 40 MG/10 ML VIAL INJ IV SCH (09:30)
[2022-05-28 09:31] LABS: Hemoglobin 9.1 g/dL (13.5-17.5); Lymphocytes # (auto) 1.2 10 ^3/uL (0.4-5.4); Lymphocytes % (auto) 5.8 % (10.0-50.0); Mean Corpuscular Hemoglobin 26.5 pg (28.0-32.0); Mean Corpuscular Hgb Conc. 32.7 g/dL (32.0-36.0); Mean Corpuscular Volume 81.3 fL (80.0-100.0); Monocytes % (auto) 4.8 % (0.0-12.0); Neutrophils # (auto) 18.1 10 ^3/uL (1.6-8.6); Neutrophils % (auto) 89.2 % (37.0-80.0); Red Cell Distribution Width 15.9 % (11.8-14.3); White Blood Cell 20.3 10^3/uL (4.4-10.8)
[2022-05-28] MEDS: ASPirin 81 mg TAB NG SCH (09:31)
[2022-05-28 09:56] LABS: INR 1.29 (0.9-1.15)
[2022-05-28] MEDS ORDERED: PANTOPRAZOLE 40 MG/10 ML VIAL INJ IV SCH (10:00)
[2022-05-28 10:04] LABS: Partial Thromboplastin Time 79.8 sec (24.6-33.4)
[2022-05-28 10:28] LABS: Albumin 2.3 g/dL (3.4-5.0); BUN/Creatinine Ratio 26.2 (10.0-20.0); Bilirubin, Total 0.6 mg/dL (0.2-1.0); Calcium 10.3 mg/dL (8.5-10.1); Total Protein 5.8 g/dL (6.4-8.2)
[2022-05-28 10:52] LABS: Potassium 6.7 mmol/L (3.5-5.1)
[2022-05-28] MEDS ORDERED: FUROSEMIDE 100 MG/10ML VIAL IV ONE (11:00)
[2022-05-28] MEDS: SODIUM ZIRCONIUM CYCL 10 GM PAK PO SCH ×2 (11:48→21:14)
[2022-05-28] MEDS: NOREPINEPHRINE 8 MG/250ML KIT 250 ML IV SCH (12:45)
[2022-05-28 16:28] LABS: INR 1.29 (0.9-1.15); Partial Thromboplastin Time 53.9 sec (24.6-33.4)
[2022-05-28] MEDS: DOBUTamine 1000MCG/ML 250 ML IV SCH (18:02)
[2022-05-28] MEDS: FUROSEMIDE INJECTION 100 MG in SODIUM CHL 0.9% 100 ML IV SCH (18:03)
[2022-05-28 18:23] LABS: Urine Bacteria FEW /hpf (None Seen); Urine Blood 3+ /uL (Negative); Urine Mucus FEW (None Seen); Urine Specific Gravity 1.011 (1.001-1.035); Urine Sperm PRESENT /hpf (None Seen); Urine WBC 54 /hpf (0 - 3)
[2022-05-28 18:28] LABS: Protein, Urine 62.6 mg/dL (0.0-11.9)
[2022-05-28] MEDS: PIPERACILLIN-TAZOB 2.25GM 50 ML IV SCH (18:41)
[2022-05-28] MEDS ORDERED: FLUDROCORTISONE ACETATE 0.1 MG TAB PO ONE (19:15)
[2022-05-28] MEDS: SODIUM BICARBONATE 50ML VIAL 150 ML in D5W 5% 1,000 ML IV SCH (19:15)
[2022-05-28 23:17] LABS: INR 1.36 (0.9-1.15); Partial Thromboplastin Time 39.6 sec (24.6-33.4)
[2022-05-28] MEDS: HEPARIN DRIP/D5W 100UNITS/ML 250 ML IV SCH (23:45)
[2022-05-29] VITALS (95 sets, daily range): BP systolic 93–149; BP diastolic 40–66
[2022-05-29] MEDS: MIDAZOLAM DRIP 50 mg/50mL 50 ML IV SCH ×5 (00:30→21:47)
[2022-05-29] MEDS: PIPERACILLIN-TAZOB 2.25GM 50 ML IV SCH ×4 (00:47→17:45)
[2022-05-29] MEDS: EPINEPHrine HCL 250 ML IV SCH (01:30)
[2022-05-29] MEDS: FUROSEMIDE INJECTION 100 MG in SODIUM CHL 0.9% 100 ML IV SCH ×3 (02:46→21:52)
[2022-05-29] MEDS: DOPamine 1600MCG/ML D5W 250 ML IV SCH ×3 (02:47→23:50)
[2022-05-29] MEDS: SODIUM BICARBONATE 50ML VIAL 150 ML in D5W 5% 1,000 ML IV SCH (03:58)
[2022-05-29 04:26] LABS: Basophils # (auto) 0 10 ^3/uL (0-0.2); Basophils % (auto) 0.3 % (0.0-2.0); Eosinophils # (auto) 0 10 ^3/uL (0-0.8); Eosinophils % (auto) 0.2 % (0.0-7.0); Hematocrit 23.4 % (41.0-53.0); Lymphocytes # (auto) 1.3 10 ^3/uL (0.4-5.4); Lymphocytes % (auto) 10.9 % (10.0-50.0); Mean Corpuscular Hemoglobin 27.3 pg (28.0-32.0); Mean Corpuscular Hgb Conc. 34.3 g/dL (32.0-36.0); Mean Corpuscular Volume 79.7 fL (80.0-100.0); Monocytes # (auto) 0.4 10 ^3/uL (0-1.3); Monocytes % (auto) 3.7 % (0.0-12.0); Neutrophils # (auto) 10.2 10 ^3/uL (1.6-8.6); Neutrophils % (auto) 84.9 % (37.0-80.0); Nucleated Red Blood Cells % 0.1 %; Red Blood Cells 2.94 10^6/uL (4.5-5.90); Red Cell Distribution Width 15.8 % (11.8-14.3)
[2022-05-29 04:46] LABS: Potassium 4.3 mmol/L (3.5-5.1)
[2022-05-29 04:56] LABS: Albumin 1.9 g/dL (3.4-5.0); BUN/Creatinine Ratio 25.3 (10.0-20.0); Bilirubin, Total 0.5 mg/dL (0.2-1.0); Calcium 8.4 mg/dL (8.5-10.1); Total Protein 5.3 g/dL (6.4-8.2)
[2022-05-29] MEDS: ACCU-CHEK COMFORT CURVE STRIP VI SCH ×4 (05:43→17:45)
[2022-05-29] MEDS: SODIUM ZIRCONIUM CYCL 10 GM PAK PO SCH ×3 (05:49→21:52)
[2022-05-29] MEDS: InsuLIN REG 1unit/0.01ml Soln (100units/ml) SC SCH ×4 (06:22→17:45)
[2022-05-29 09:45] LABS: INR 1.32 (0.9-1.15); Partial Thromboplastin Time 50.3 sec (24.6-33.4)
[2022-05-29] MEDS: ASPirin 81 mg TAB NG SCH (09:49)
[2022-05-29] MEDS: PANTOPRAZOLE 40 MG/10 ML VIAL INJ IV SCH (09:49)
[2022-05-29] MEDS ORDERED: FLUDROCORTISONE ACETATE 0.1 MG TAB PO SCH (10:00)
[2022-05-29] MEDS: DOBUTamine 1000MCG/ML 250 ML IV SCH (10:24)
[2022-05-29] MEDS: NOREPINEPHRINE 8 MG/250ML KIT 250 ML IV SCH (12:45)
[2022-05-29 15:56] LABS: INR 1.29 (0.9-1.15); Partial Thromboplastin Time 69.7 sec (24.6-33.4)
[2022-05-29] MEDS ORDERED: Glucerna 1.2 Cal 1Liter BOTTLE GT SCH (16:00)
[2022-05-29] MEDS: ATORVASTATIN 20 MG TAB PO SCH (21:52)
[2022-05-29 22:50] LABS: INR 1.24 (0.9-1.15); Partial Thromboplastin Time 59.6 sec (24.6-33.4)
[2022-05-29] MEDS: HEPARIN DRIP/D5W 100UNITS/ML 250 ML IV SCH (23:30)
[2022-05-30] VITALS (106 sets, daily range): BP systolic 114–160; BP diastolic 48–89
[2022-05-30] MEDS: PIPERACILLIN-TAZOB 2.25GM 50 ML IV SCH ×5 (00:07→23:48)
[2022-05-30] MEDS: ACCU-CHEK COMFORT CURVE STRIP VI SCH ×5 (00:08→23:48)
[2022-05-30] MEDS: MIDAZOLAM DRIP 50 mg/50mL 50 ML IV SCH ×5 (00:59→20:47)
[2022-05-30] MEDS: EPINEPHrine HCL 250 ML IV SCH (01:30)
[2022-05-30 04:30] LABS: Basophils # (auto) 0.1 10 ^3/uL (0-0.2); Eosinophils # (auto) 0.1 10 ^3/uL (0-0.8); Hemoglobin 7.2 g/dL (13.5-17.5); Lymphocytes # (auto) 1.5 10 ^3/uL (0.4-5.4); Nucleated Red Blood Cells % 0.1 %
[2022-05-30 04:33] LABS: Basophils % (auto) 0.7 % (0.0-2.0); Eosinophils % (auto) 0.5 % (0.0-7.0); Hematocrit 20.1 % (41.0-53.0); Mean Corpuscular Hemoglobin 27.9 pg (28.0-32.0); Mean Corpuscular Hgb Conc. 35.9 g/dL (32.0-36.0); Mean Corpuscular Volume 77.6 fL (80.0-100.0); Monocytes # (auto) 0.6 10 ^3/uL (0-1.3); Monocytes % (auto) 5.9 % (0.0-12.0); Neutrophils % (auto) 77.9 % (37.0-80.0); Red Blood Cells 2.59 10^6/uL (4.5-5.90); Red Cell Distribution Width 16.2 % (11.8-14.3); White Blood Cell 10.3 10^3/uL (4.4-10.8)
[2022-05-30 04:42] LABS: Potassium 3.1 mmol/L (3.5-5.1)
[2022-05-30 04:49] LABS: Albumin 1.9 g/dL (3.4-5.0); BUN/Creatinine Ratio 23.8 (10.0-20.0); Bilirubin, Total 0.6 mg/dL (0.2-1.0); Calcium 8.1 mg/dL (8.5-10.1); Total Protein 5.3 g/dL (6.4-8.2)
[2022-05-30] MEDS: SODIUM ZIRCONIUM CYCL 10 GM PAK PO SCH (05:31)
[2022-05-30] MEDS: InsuLIN REG 1unit/0.01ml Soln (100units/ml) SC SCH ×5 (06:00→23:48)
[2022-05-30] MEDS: DOPamine 1600MCG/ML D5W 250 ML IV SCH ×2 (08:30→17:10)
[2022-05-30] MEDS: FUROSEMIDE INJECTION 100 MG in SODIUM CHL 0.9% 100 ML IV SCH ×3 (09:15→19:51)
[2022-05-30] MEDS: DOBUTamine 1000MCG/ML 250 ML IV SCH (09:16)
[2022-05-30] MEDS: PANTOPRAZOLE 40 MG/10 ML VIAL INJ IV SCH (09:17)
[2022-05-30] MEDS: ASPirin 81 mg TAB NG SCH (09:17)
[2022-05-30] MEDS: POTASSIUM CHL 20MEQ/100ML 100 ML IV SCH ×2 (11:07→12:19)
[2022-05-30] MEDS: NOREPINEPHRINE 8 MG/250ML KIT 250 ML IV SCH (12:45)
[2022-05-30 13:44] LABS: INR 1.27 (0.9-1.15)
[2022-05-30 13:51] LABS: Partial Thromboplastin Time 77.7 sec (24.6-33.4)
[2022-05-30] MEDS ORDERED: Glucerna 1.2 Cal 1Liter BOTTLE GT SCH (17:15)
[2022-05-30 19:10] LABS: INR 1.24 (0.9-1.15); Partial Thromboplastin Time 56.3 sec (24.6-33.4)
[2022-05-30] MEDS: ALBUMIN 25% 100 ML IV SCH (20:00)
[2022-05-30 21:00] LABS: % Iron Saturation 23.9 % (20-55)
[2022-05-30] MEDS: ATORVASTATIN 20 MG TAB PO SCH (22:00)
[2022-05-30] MEDS: HEPARIN DRIP/D5W 100UNITS/ML 250 ML IV SCH (23:29)
[2022-05-31] VITALS (109 sets, daily range): BP systolic 134–188; BP diastolic 45–102
[2022-05-31] MEDS: MIDAZOLAM DRIP 50 mg/50mL 50 ML IV SCH ×6 (00:20→20:06)
[2022-05-31] MEDS: EPINEPHrine HCL 250 ML IV SCH (01:10)
[2022-05-31] MEDS: DOPamine 1600MCG/ML D5W 250 ML IV SCH ×3 (01:17→19:10)
[2022-05-31] MEDS: PROPOFOL 100 ML IV SCH ×2 (02:23→16:55)
[2022-05-31] MEDS: ALBUMIN 25% 100 ML IV SCH ×2 (03:11→10:19)
[2022-05-31 04:17] LABS: Basophils # (auto) 0.1 10 ^3/uL (0-0.2); Eosinophils # (auto) 0.1 10 ^3/uL (0-0.8); Monocytes # (auto) 0.8 10 ^3/uL (0-1.3); Red Blood Cells 2.56 10^6/uL (4.5-5.90)
[2022-05-31 04:20] LABS: Basophils % (auto) 0.7 % (0.0-2.0); Hematocrit 20.4 % (41.0-53.0); Lymphocytes # (auto) 1.6 10 ^3/uL (0.4-5.4); Lymphocytes % (auto) 18.3 % (10.0-50.0); Mean Corpuscular Hemoglobin 27.5 pg (28.0-32.0); Mean Corpuscular Hgb Conc. 34.5 g/dL (32.0-36.0); Mean Corpuscular Volume 79.6 fL (80.0-100.0); Nucleated Red Blood Cells % 0.1 %; Red Cell Distribution Width 15.9 % (11.8-14.3); White Blood Cell 8.5 10^3/uL (4.4-10.8)
[2022-05-31 04:28] LABS: INR 1.19 (0.9-1.15); Partial Thromboplastin Time 47.1 sec (24.6-33.4)
[2022-05-31 04:35] LABS: Calcium 8.4 mg/dL (8.5-10.1)
[2022-05-31 04:37] LABS: BUN/Creatinine Ratio 23.6 (10.0-20.0)
[2022-05-31 05:38] LABS: Potassium 2.9 mmol/L (3.5-5.1)
[2022-05-31] MEDS: DOBUTamine 1000MCG/ML 250 ML IV SCH ×2 (05:42→07:48)
[2022-05-31] MEDS: InsuLIN REG 1unit/0.01ml Soln (100units/ml) SC SCH ×4 (06:00→23:45)
[2022-05-31] MEDS: PIPERACILLIN-TAZOB 2.25GM 50 ML IV SCH ×4 (06:06→23:44)
[2022-05-31] MEDS: ACCU-CHEK COMFORT CURVE STRIP VI SCH ×4 (06:06→23:44)
[2022-05-31] MEDS: POTASSIUM CHL 20MEQ/100ML 100 ML IV SCH ×3 (06:24→17:21)
[2022-05-31] MEDS: FUROSEMIDE INJECTION 100 MG in SODIUM CHL 0.9% 100 ML IV SCH ×2 (06:32→14:57)
[2022-05-31] MEDS ORDERED: ASPirin 81 mg TAB PO SCH (10:00)
[2022-05-31] MEDS: PANTOPRAZOLE 40 MG/10 ML VIAL INJ IV SCH (10:19)
[2022-05-31] MEDS: NOREPINEPHRINE 8 MG/250ML KIT 250 ML IV SCH (12:45)
[2022-05-31 13:10] LABS: INR 1.19 (0.9-1.15); Partial Thromboplastin Time 62.6 sec (24.6-33.4)
[2022-05-31] MEDS ORDERED: PATIENTS OWN MEDICATION RIGHTEYE SCH (14:00)
[2022-05-31] MEDS: hydrALAZINE HCL 20 MG/ML VL IV PRN (14:15)
[2022-05-31] MEDS ORDERED: ASPirin 81 mg TAB PO ONE (14:30)
[2022-05-31] MEDS: DORZOLAMIDE HCL 2% OPTH(EYE) SOL 10ML RIGHTEYE SCH ×2 (14:55→22:01)
[2022-05-31] MEDS: prednisoLONE ACETATE 1% OPTH SUSP 5ML RIGHTEYE SCH ×2 (15:37→22:01)
[2022-05-31] MEDS: BRIMONIDINE 0.2% OPTH Soln 5ml RIGHTEYE SCH ×2 (15:42→22:01)
[2022-05-31] MEDS: KETOROLAC RIGHTEYE SCH ×2 (15:50→22:01)
[2022-05-31 19:43] LABS: INR 1.14 (0.9-1.15); Partial Thromboplastin Time 53.7 sec (24.6-33.4)
[2022-05-31] MEDS: SODIUM FERR GLUC 62.5MG/5ML 125 MG in SODIUM CHL 0.9% 100 ML IV SCH (19:46)
[2022-05-31] MEDS: ATORVASTATIN 20 MG TAB PO SCH (22:01)
[2022-05-31] MEDS: LATANOPROST 0.005 % OPTH(EYE) SOL 2.5ML EACHEYE SCH (22:01)
[2022-05-31] MEDS: HEPARIN DRIP/D5W 100UNITS/ML 250 ML IV SCH (23:05)
[2022-06-01] VITALS (103 sets, daily range): BP systolic 115–170; BP diastolic 48–65
[2022-06-01] MEDS: EPINEPHrine HCL 250 ML IV SCH (01:02)
[2022-06-01] MEDS: MIDAZOLAM DRIP 50 mg/50mL 50 ML IV SCH ×4 (01:15→23:30)
[2022-06-01] MEDS: PROPOFOL 100 ML IV SCH ×3 (01:46→22:15)
[2022-06-01 01:55] LABS: INR 1.16 (0.9-1.15)
[2022-06-01 02:32] LABS: Partial Thromboplastin Time 70.9 sec (24.6-33.4)
[2022-06-01] MEDS: DOPamine 1600MCG/ML D5W 250 ML IV SCH ×3 (03:20→21:10)
[2022-06-01 04:21] LABS: Basophils # (auto) 0.1 10 ^3/uL (0-0.2); Basophils % (auto) 1.2 % (0.0-2.0); Eosinophils # (auto) 0.5 10 ^3/uL (0-0.8); Eosinophils % (auto) 6.8 % (0.0-7.0); Lymphocytes # (auto) 1.4 10 ^3/uL (0.4-5.4); Lymphocytes % (auto) 20.1 % (10.0-50.0); Mean Corpuscular Hemoglobin 27.8 pg (28.0-32.0); Mean Corpuscular Hgb Conc. 34.7 g/dL (32.0-36.0); Mean Corpuscular Volume 80.2 fL (80.0-100.0); Monocytes # (auto) 0.7 10 ^3/uL (0-1.3); Monocytes % (auto) 10.1 % (0.0-12.0); Neutrophils # (auto) 4.5 10 ^3/uL (1.6-8.6); Neutrophils % (auto) 61.8 % (37.0-80.0); Nucleated Red Blood Cells % 0.1 %; Red Blood Cells 3.25 10^6/uL (4.5-5.90); Red Cell Distribution Width 16.3 % (11.8-14.3); White Blood Cell 7.2 10^3/uL (4.4-10.8)
[2022-06-01 04:34] LABS: BUN/Creatinine Ratio 22.1 (10.0-20.0); Calcium 8.8 mg/dL (8.5-10.1); Potassium 3.4 mmol/L (3.5-5.1)
[2022-06-01] MEDS: InsuLIN REG 1unit/0.01ml Soln (100units/ml) SC SCH ×3 (06:00→18:20)
[2022-06-01] MEDS: PIPERACILLIN-TAZOB 2.25GM 50 ML IV SCH ×3 (06:15→18:42)
[2022-06-01] MEDS: KETOROLAC RIGHTEYE SCH ×3 (06:15→22:00)
[2022-06-01] MEDS: DORZOLAMIDE HCL 2% OPTH(EYE) SOL 10ML RIGHTEYE SCH ×3 (06:16→22:00)
[2022-06-01] MEDS: ACCU-CHEK COMFORT CURVE STRIP VI SCH ×3 (06:16→18:20)
[2022-06-01] MEDS: prednisoLONE ACETATE 1% OPTH SUSP 5ML RIGHTEYE SCH ×3 (06:16→22:00)
[2022-06-01] MEDS: BRIMONIDINE 0.2% OPTH Soln 5ml RIGHTEYE SCH ×3 (06:16→22:00)
[2022-06-01] MEDS: DOBUTamine 1000MCG/ML 250 ML IV SCH (07:02)
[2022-06-01] MEDS: FUROSEMIDE INJECTION 100 MG in SODIUM CHL 0.9% 100 ML IV SCH (08:00)
[2022-06-01 08:04] LABS: INR 1.13 (0.9-1.15); Partial Thromboplastin Time 65.8 sec (24.6-33.4)
[2022-06-01] MEDS: PANTOPRAZOLE 40 MG/10 ML VIAL INJ IV SCH (10:21)
[2022-06-01] MEDS: ASPirin 81 mg TAB PO SCH (10:21)
[2022-06-01] MEDS: hydrALAZINE HCL 20 MG/ML VL IV PRN (10:31)
[2022-06-01] MEDS ORDERED: POTASSIUM CHL 20MEQ/100ML 100 ML IV SCH (11:30)
[2022-06-01] MEDS ORDERED: ENOXAPARIN SOD 30 MG/0.3 ML SYRINGE SC ONE (12:00)
[2022-06-01] MEDS: NOREPINEPHRINE 8 MG/250ML KIT 250 ML IV SCH (12:45)
[2022-06-01] MEDS: SODIUM FERR GLUC 62.5MG/5ML 125 MG in SODIUM CHL 0.9% 100 ML IV SCH (12:57)
[2022-06-01 14:33] LABS: INR 1.09 (0.9-1.15); Partial Thromboplastin Time 39.6 sec (24.6-33.4)
[2022-06-01] MEDS ORDERED: CARVEDILOL 3.125 MG TAB PO SCH (22:00)
[2022-06-01] MEDS: LATANOPROST 0.005 % OPTH(EYE) SOL 2.5ML EACHEYE SCH (22:00)
[2022-06-01] MEDS: ATORVASTATIN 20 MG TAB PO SCH (22:00)
[2022-06-02] VITALS (100 sets, daily range): BP systolic 116–175; BP diastolic 46–69
[2022-06-02] MEDS: EPINEPHrine HCL 250 ML IV SCH (01:30)
[2022-06-02] MEDS: MIDAZOLAM DRIP 50 mg/50mL 50 ML IV SCH ×4 (01:50→19:30)
[2022-06-02] MEDS: DOPamine 1600MCG/ML D5W 250 ML IV SCH (01:50)
[2022-06-02] MEDS: DOBUTamine 1000MCG/ML 250 ML IV SCH (02:41)
[2022-06-02] MEDS: FUROSEMIDE INJECTION 100 MG in SODIUM CHL 0.9% 100 ML IV SCH ×2 (03:30→11:45)
[2022-06-02 04:16] LABS: Basophils # (auto) 0.1 10 ^3/uL (0-0.2); Basophils % (auto) 0.7 % (0.0-2.0); Eosinophils # (auto) 0.4 10 ^3/uL (0-0.8); Eosinophils % (auto) 4.3 % (0.0-7.0); Hematocrit 27.8 % (41.0-53.0); Hemoglobin 9.4 g/dL (13.5-17.5); Lymphocytes # (auto) 1.8 10 ^3/uL (0.4-5.4); Lymphocytes % (auto) 18.3 % (10.0-50.0); Mean Corpuscular Hemoglobin 27.4 pg (28.0-32.0); Mean Corpuscular Hgb Conc. 33.7 g/dL (32.0-36.0); Mean Corpuscular Volume 81.3 fL (80.0-100.0); Monocytes # (auto) 1.1 10 ^3/uL (0-1.3); Monocytes % (auto) 11.4 % (0.0-12.0); Neutrophils # (auto) 6.2 10 ^3/uL (1.6-8.6); Neutrophils % (auto) 65.3 % (37.0-80.0); Nucleated Red Blood Cells % 0.1 %; Red Blood Cells 3.42 10^6/uL (4.5-5.90); Red Cell Distribution Width 16.2 % (11.8-14.3); White Blood Cell 9.6 10^3/uL (4.4-10.8)
[2022-06-02 04:33] LABS: Albumin 2.7 g/dL (3.4-5.0); Calcium 8.5 mg/dL (8.5-10.1); Potassium 3.5 mmol/L (3.5-5.1)
[2022-06-02 04:37] LABS: BUN/Creatinine Ratio 22.7 (10.0-20.0); Bilirubin, Total 0.6 mg/dL (0.2-1.0); Total Protein 6.4 g/dL (6.4-8.2)
[2022-06-02] MEDS: DORZOLAMIDE HCL 2% OPTH(EYE) SOL 10ML RIGHTEYE SCH ×3 (05:44→22:26)
[2022-06-02] MEDS: prednisoLONE ACETATE 1% OPTH SUSP 5ML RIGHTEYE SCH ×3 (05:44→22:26)
[2022-06-02] MEDS: BRIMONIDINE 0.2% OPTH Soln 5ml RIGHTEYE SCH ×3 (05:44→22:26)
[2022-06-02] MEDS: KETOROLAC RIGHTEYE SCH ×3 (05:44→22:26)
[2022-06-02] MEDS: PIPERACILLIN-TAZOB 2.25GM 50 ML IV SCH ×4 (05:44→18:00)
[2022-06-02] MEDS: ACCU-CHEK COMFORT CURVE STRIP VI SCH ×4 (05:45→18:15)
[2022-06-02] MEDS: InsuLIN REG 1unit/0.01ml Soln (100units/ml) SC SCH ×4 (06:00→18:00)
[2022-06-02] MEDS: hydrALAZINE HCL 20 MG/ML VL IV PRN (07:19)
[2022-06-02] MEDS: PANTOPRAZOLE 40 MG/10 ML VIAL INJ IV SCH (10:38)
[2022-06-02] MEDS: ASPirin 81 mg TAB PO SCH (10:39)
[2022-06-02] MEDS: ENOXAPARIN SOD 30 MG/0.3 ML SYRINGE SC SCH (10:39)
[2022-06-02] MEDS: CLOPIDOGREL BISULFATE 75 MG TAB PO SCH (10:39)
[2022-06-02] MEDS: CARVEDILOL 12.5 MG TAB PO SCH ×2 (10:43→22:26)
[2022-06-02] MEDS ORDERED: NITROGLYCERIN 2% OINT 1GM PKG TD ONE ×3 (11:38→11:45)
[2022-06-02] MEDS ORDERED: FUROSEMIDE INJECTION 100 MG in SODIUM CHL 0.9% 100 ML IV SCH (11:45)
[2022-06-02] MEDS: NOREPINEPHRINE 8 MG/250ML KIT 250 ML IV SCH (12:45)
[2022-06-02] MEDS: SODIUM FERR GLUC 62.5MG/5ML 125 MG in SODIUM CHL 0.9% 100 ML IV SCH (13:07)
[2022-06-02] MEDS: LATANOPROST 0.005 % OPTH(EYE) SOL 2.5ML EACHEYE SCH (22:26)
[2022-06-02] MEDS: ATORVASTATIN 20 MG TAB PO SCH (22:26)
[2022-06-03] VITALS (89 sets, daily range): BP systolic 124–179; BP diastolic 43–98
[2022-06-03] MEDS: MIDAZOLAM DRIP 50 mg/50mL 50 ML IV SCH ×2 (00:30→05:30)
[2022-06-03 03:32] LABS: Basophils # (auto) 0.1 10 ^3/uL (0-0.2); Basophils % (auto) 0.7 % (0.0-2.0); Eosinophils # (auto) 0.4 10 ^3/uL (0-0.8); Eosinophils % (auto) 3.3 % (0.0-7.0); Hematocrit 27.1 % (41.0-53.0); Hemoglobin 9.3 g/dL (13.5-17.5); Lymphocytes # (auto) 1.4 10 ^3/uL (0.4-5.4); Lymphocytes % (auto) 13.5 % (10.0-50.0); Mean Corpuscular Hemoglobin 27.5 pg (28.0-32.0); Mean Corpuscular Hgb Conc. 34.3 g/dL (32.0-36.0); Mean Corpuscular Volume 80.4 fL (80.0-100.0); Monocytes # (auto) 0.8 10 ^3/uL (0-1.3); Monocytes % (auto) 7.9 % (0.0-12.0); Neutrophils % (auto) 74.6 % (37.0-80.0); Nucleated Red Blood Cells % 0.1 %; Red Blood Cells 3.37 10^6/uL (4.5-5.90); Red Cell Distribution Width 16.5 % (11.8-14.3); White Blood Cell 10.7 10^3/uL (4.4-10.8)
[2022-06-03 03:49] LABS: BUN/Creatinine Ratio 24.6 (10.0-20.0); Calcium 9.1 mg/dL (8.5-10.1)
[2022-06-03] MEDS: DOBUTamine 1000MCG/ML 250 ML IV SCH ×2 (04:17→21:38)
[2022-06-03] MEDS: FUROSEMIDE INJECTION 100 MG in SODIUM CHL 0.9% 100 ML IV SCH ×3 (04:17→14:36)
[2022-06-03] MEDS: KETOROLAC RIGHTEYE SCH ×3 (06:00→21:46)
[2022-06-03] MEDS: DORZOLAMIDE HCL 2% OPTH(EYE) SOL 10ML RIGHTEYE SCH ×3 (06:00→21:46)
[2022-06-03] MEDS: ACCU-CHEK COMFORT CURVE STRIP VI SCH ×4 (06:00→17:38)
[2022-06-03] MEDS: prednisoLONE ACETATE 1% OPTH SUSP 5ML RIGHTEYE SCH ×3 (06:00→21:46)
[2022-06-03] MEDS: BRIMONIDINE 0.2% OPTH Soln 5ml RIGHTEYE SCH ×3 (06:00→21:46)
[2022-06-03] MEDS: InsuLIN REG 1unit/0.01ml Soln (100units/ml) SC SCH ×4 (06:00→18:00)
[2022-06-03] MEDS: PIPERACILLIN-TAZOB 2.25GM 50 ML IV SCH ×4 (06:11→17:38)
[2022-06-03] MEDS: CLOPIDOGREL BISULFATE 75 MG TAB PO SCH (10:23)
[2022-06-03] MEDS: ASPirin 81 mg TAB PO SCH (10:24)
[2022-06-03] MEDS: CARVEDILOL 12.5 MG TAB PO SCH ×2 (10:24→21:38)
[2022-06-03] MEDS: PANTOPRAZOLE 40 MG/10 ML VIAL INJ IV SCH (10:25)
[2022-06-03] MEDS: ENOXAPARIN SOD 30 MG/0.3 ML SYRINGE SC SCH (10:25)
[2022-06-03] MEDS: POTASSIUM CHL 20MEQ/100ML 100 ML IV SCH ×4 (10:26→14:35)
[2022-06-03] MEDS: SODIUM FERR GLUC 62.5MG/5ML 125 MG in SODIUM CHL 0.9% 100 ML IV SCH (12:47)
[2022-06-03] MEDS: ATORVASTATIN 20 MG TAB PO SCH (21:38)
[2022-06-03] MEDS: LATANOPROST 0.005 % OPTH(EYE) SOL 2.5ML EACHEYE SCH (21:45)
[2022-06-04] VITALS (45 sets, daily range): BP systolic 117–197; BP diastolic 41–69
[2022-06-04 00:23] LABS: Basophils # (auto) 0.1 10 ^3/uL (0-0.2); Basophils % (auto) 0.6 % (0.0-2.0); Eosinophils # (auto) 0.7 10 ^3/uL (0-0.8); Eosinophils % (auto) 5.7 % (0.0-7.0); Hematocrit 25.7 % (41.0-53.0); Hemoglobin 8.8 g/dL (13.5-17.5); Lymphocytes # (auto) 1.6 10 ^3/uL (0.4-5.4); Lymphocytes % (auto) 13.6 % (10.0-50.0); Mean Corpuscular Hemoglobin 27.4 pg (28.0-32.0); Mean Corpuscular Hgb Conc. 34.1 g/dL (32.0-36.0); Mean Corpuscular Volume 80.2 fL (80.0-100.0); Monocytes % (auto) 8.2 % (0.0-12.0); Neutrophils # (auto) 8.3 10 ^3/uL (1.6-8.6); Neutrophils % (auto) 71.9 % (37.0-80.0); Red Blood Cells 3.21 10^6/uL (4.5-5.90); Red Cell Distribution Width 16.3 % (11.8-14.3); White Blood Cell 11.6 10^3/uL (4.4-10.8)
[2022-06-04] MEDS: ACCU-CHEK COMFORT CURVE STRIP VI SCH ×4 (00:24→17:50)
[2022-06-04] MEDS: InsuLIN REG 1unit/0.01ml Soln (100units/ml) SC SCH ×4 (00:25→17:52)
[2022-06-04] MEDS: FUROSEMIDE INJECTION 100 MG in SODIUM CHL 0.9% 100 ML IV SCH ×2 (00:26→10:00)
[2022-06-04] MEDS: PIPERACILLIN-TAZOB 2.25GM 50 ML IV SCH ×4 (00:26→17:57)
[2022-06-04] MEDS: hydrALAZINE HCL 20 MG/ML VL IV PRN ×3 (00:47→14:11)
[2022-06-04 04:05] LABS: Basophils # (auto) 0.1 10 ^3/uL (0-0.2); Basophils % (auto) 0.7 % (0.0-2.0); Eosinophils # (auto) 0.6 10 ^3/uL (0-0.8); Eosinophils % (auto) 4.6 % (0.0-7.0); Hematocrit 25.9 % (41.0-53.0); Lymphocytes # (auto) 1.5 10 ^3/uL (0.4-5.4); Lymphocytes % (auto) 12.3 % (10.0-50.0); Mean Corpuscular Hemoglobin 27.7 pg (28.0-32.0); Mean Corpuscular Hgb Conc. 34.6 g/dL (32.0-36.0); Mean Corpuscular Volume 79.9 fL (80.0-100.0); Monocytes # (auto) 0.9 10 ^3/uL (0-1.3); Monocytes % (auto) 7.2 % (0.0-12.0); Neutrophils # (auto) 9.2 10 ^3/uL (1.6-8.6); Neutrophils % (auto) 75.2 % (37.0-80.0); Nucleated Red Blood Cells % 0.1 %; Red Blood Cells 3.25 10^6/uL (4.5-5.90); Red Cell Distribution Width 16.4 % (11.8-14.3); White Blood Cell 12.3 10^3/uL (4.4-10.8)
[2022-06-04 04:26] LABS: BUN/Creatinine Ratio 25.1 (10.0-20.0); Calcium 8.8 mg/dL (8.5-10.1); Potassium 3.6 mmol/L (3.5-5.1)
[2022-06-04] MEDS: KETOROLAC RIGHTEYE SCH ×3 (06:00→22:03)
[2022-06-04] MEDS: BRIMONIDINE 0.2% OPTH Soln 5ml RIGHTEYE SCH ×3 (06:00→22:03)
[2022-06-04] MEDS: DORZOLAMIDE HCL 2% OPTH(EYE) SOL 10ML RIGHTEYE SCH ×3 (06:00→22:02)
[2022-06-04] MEDS: prednisoLONE ACETATE 1% OPTH SUSP 5ML RIGHTEYE SCH ×3 (06:00→22:00)
[2022-06-04] MEDS: CLOPIDOGREL BISULFATE 75 MG TAB PO SCH (09:42)
[2022-06-04] MEDS: ASPirin 81 mg TAB PO SCH (09:42)
[2022-06-04] MEDS: CARVEDILOL 12.5 MG TAB PO SCH ×2 (09:42→22:00)
[2022-06-04] MEDS: PANTOPRAZOLE 40 MG/10 ML VIAL INJ IV SCH (09:42)
[2022-06-04] MEDS: ENOXAPARIN SOD 30 MG/0.3 ML SYRINGE SC SCH (09:42)
[2022-06-04] MEDS: SODIUM FERR GLUC 62.5MG/5ML 125 MG in SODIUM CHL 0.9% 100 ML IV SCH (13:06)
[2022-06-04] MEDS ORDERED: POTASSIUM CHL 20 Meq TABLET PO ONE (14:15)
[2022-06-04] MEDS: FUROSEMIDE 40 MG/4 ML VIAL IV SCH (17:58)
[2022-06-04] MEDS: ATORVASTATIN 20 MG TAB PO SCH (21:43)
[2022-06-04] MEDS: ACETYLCYSTEINE ORAL for CIN 20%(200MG/ML) 4ML PO SCH (21:49)
[2022-06-04] MEDS: LATANOPROST 0.005 % OPTH(EYE) SOL 2.5ML EACHEYE SCH (22:00)
[2022-06-04] MEDS ORDERED: SACUBITRIL-VALSARTAN 24mg/26mg TAB PO SCH (22:00)
[2022-06-05] VITALS (19 sets, daily range): BP systolic 106–178; BP diastolic 38–67
[2022-06-05] MEDS: PIPERACILLIN-TAZOB 2.25GM 50 ML IV SCH ×3 (00:56→13:28)
[2022-06-05 04:30] LABS: Basophils # (auto) 0.1 10 ^3/uL (0-0.2); Basophils % (auto) 0.7 % (0.0-2.0); Eosinophils # (auto) 0.5 10 ^3/uL (0-0.8); Eosinophils % (auto) 4.7 % (0.0-7.0); Hematocrit 24.2 % (41.0-53.0); Hemoglobin 8.6 g/dL (13.5-17.5); Lymphocytes # (auto) 1.8 10 ^3/uL (0.4-5.4); Mean Corpuscular Hemoglobin 28.9 pg (28.0-32.0); Mean Corpuscular Hgb Conc. 35.3 g/dL (32.0-36.0); Mean Corpuscular Volume 81.9 fL (80.0-100.0); Monocytes # (auto) 0.9 10 ^3/uL (0-1.3); Monocytes % (auto) 8.5 % (0.0-12.0); Neutrophils # (auto) 7.8 10 ^3/uL (1.6-8.6); Neutrophils % (auto) 70.1 % (37.0-80.0); Red Blood Cells 2.96 10^6/uL (4.5-5.90); Red Cell Distribution Width 16.6 % (11.8-14.3); White Blood Cell 11.1 10^3/uL (4.4-10.8)
[2022-06-05 04:41] LABS: Potassium 3.7 mmol/L (3.5-5.1)
[2022-06-05 04:46] LABS: INR 1.18 (0.9-1.15)
[2022-06-05 04:47] LABS: BUN/Creatinine Ratio 24.9 (10.0-20.0); Calcium 8.6 mg/dL (8.5-10.1)
[2022-06-05] MEDS: prednisoLONE ACETATE 1% OPTH SUSP 5ML RIGHTEYE SCH ×3 (06:00→21:55)
[2022-06-05] MEDS: BRIMONIDINE 0.2% OPTH Soln 5ml RIGHTEYE SCH ×3 (06:00→21:55)
[2022-06-05] MEDS: KETOROLAC RIGHTEYE SCH ×3 (06:00→21:54)
[2022-06-05] MEDS: DORZOLAMIDE HCL 2% OPTH(EYE) SOL 10ML RIGHTEYE SCH ×3 (06:00→21:55)
[2022-06-05] MEDS: ACCU-CHEK COMFORT CURVE STRIP VI SCH ×4 (06:05→17:53)
[2022-06-05] MEDS: InsuLIN REG 1unit/0.01ml Soln (100units/ml) SC SCH ×4 (06:07→17:55)
[2022-06-05] MEDS: FUROSEMIDE 40 MG/4 ML VIAL IV SCH (06:14)
[2022-06-05] MEDS: ENOXAPARIN SOD 30 MG/0.3 ML SYRINGE SC SCH (10:00)
[2022-06-05] MEDS: PANTOPRAZOLE 40 MG/10 ML VIAL INJ IV SCH (10:11)
[2022-06-05] MEDS: CARVEDILOL 12.5 MG TAB PO SCH ×2 (10:14→21:54)
[2022-06-05] MEDS: ACETYLCYSTEINE ORAL for CIN 20%(200MG/ML) 4ML PO SCH (10:25)
[2022-06-05] MEDS: ASPirin 81 mg TAB PO SCH (10:26)
[2022-06-05] MEDS: CLOPIDOGREL BISULFATE 75 MG TAB PO SCH (10:26)
[2022-06-05] MEDS ORDERED: VERAPAMIL 2.5MG/ML INJ 2ML VIAL IV ONE (10:47)
[2022-06-05] MEDS ORDERED: ANGIOMAX 250 MG VIAL IV ONE (10:47)
[2022-06-05] MEDS ORDERED: HEPARIN SODIUM (PORCINE) 5000 UNITS/ML 1ML VIAL ONE (10:47)
[2022-06-05] MEDS ORDERED: LIDOCAINE 2%HCL (LOCAL ANESTH.) INJ 20ML MDV ONE ×2 (10:48→10:51)
[2022-06-05] MEDS ORDERED: MIDAZOLAM HCL 2MG/2ML 2ml VIAL (1mg/ml) ONE (10:48)
[2022-06-05] MEDS ORDERED: fentaNYL CITRATE 100 MCG/2 ML VL ONE (10:48)
[2022-06-05] MEDS ORDERED: SODIUM CHL 0.9% 50 ML ONE (10:48)
[2022-06-05] MEDS ORDERED: IODIXANOL 320MG/ML 100ML BTL IV ONE (10:49)
[2022-06-05] MEDS ORDERED: hydrALAZINE HCL 20 MG/ML VL ONE (11:03)
[2022-06-05] MEDS: hydrALAZINE HCL 20 MG/ML VL IV PRN (13:44)
[2022-06-05] MEDS: SODIUM FERR GLUC 62.5MG/5ML 125 MG in SODIUM CHL 0.9% 100 ML IV SCH (13:53)
[2022-06-05] MEDS ORDERED: hydrALAZINE HCL 20 MG/ML VL IV PRN (14:00)
[2022-06-05] MEDS: RANOLAZINE ER 500 MG TAB PO SCH (21:52)
[2022-06-05] MEDS: ATORVASTATIN 20 MG TAB PO SCH (21:53)
[2022-06-05] MEDS: LATANOPROST 0.005 % OPTH(EYE) SOL 2.5ML EACHEYE SCH (21:54)
[2022-06-06] VITALS (11 sets, daily range): BP systolic 106–132; BP diastolic 47–64
[2022-06-06] MEDS: InsuLIN REG 1unit/0.01ml Soln (100units/ml) SC SCH ×4 (00:12→18:12)
[2022-06-06] MEDS: ACETYLCYSTEINE ORAL for CIN 20%(200MG/ML) 4ML PO SCH ×3 (00:59→22:35)
[2022-06-06 03:44] LABS: Basophils # (auto) 0.1 10 ^3/uL (0-0.2); Eosinophils # (auto) 0.3 10 ^3/uL (0-0.8); Mean Corpuscular Hgb Conc. 33.6 g/dL (32.0-36.0); Red Blood Cells 2.98 10^6/uL (4.5-5.90); Red Cell Distribution Width 16.7 % (11.8-14.3)
[2022-06-06 03:47] LABS: Basophils % (auto) 0.6 % (0.0-2.0); Eosinophils % (auto) 2.3 % (0.0-7.0); Hematocrit 24.4 % (41.0-53.0); Hemoglobin 8.2 g/dL (13.5-17.5); Lymphocytes # (auto) 1.5 10 ^3/uL (0.4-5.4); Lymphocytes % (auto) 11.1 % (10.0-50.0); Mean Corpuscular Hemoglobin 27.5 pg (28.0-32.0); Mean Corpuscular Volume 81.8 fL (80.0-100.0); Monocytes # (auto) 1.1 10 ^3/uL (0-1.3); Monocytes % (auto) 7.7 % (0.0-12.0); Neutrophils % (auto) 78.3 % (37.0-80.0)
[2022-06-06 03:55] LABS: Calcium 8.5 mg/dL (8.5-10.1); Potassium 3.7 mmol/L (3.5-5.1)
[2022-06-06 03:57] LABS: BUN/Creatinine Ratio 21.5 (10.0-20.0)
[2022-06-06] MEDS: ACCU-CHEK COMFORT CURVE STRIP VI SCH ×4 (06:19→18:12)
[2022-06-06] MEDS ORDERED: amLODIPine BESYLATE 5 MG TAB PO SCH (10:00)
[2022-06-06] MEDS ORDERED: levoFLOXacin 250MG 50 ML IV SCH (10:00)
[2022-06-06] MEDS: PANTOPRAZOLE 40 MG/10 ML VIAL INJ IV SCH (11:44)
[2022-06-06] MEDS: ENOXAPARIN SOD 30 MG/0.3 ML SYRINGE SC SCH (11:44)
[2022-06-06] MEDS: RANOLAZINE ER 500 MG TAB PO SCH ×2 (11:44→22:38)
[2022-06-06] MEDS: CARVEDILOL 12.5 MG TAB PO SCH ×2 (11:45→22:39)
[2022-06-06] MEDS: CLOPIDOGREL BISULFATE 75 MG TAB PO SCH (11:46)
[2022-06-06] MEDS: ASPirin 81 mg TAB PO SCH (11:46)
[2022-06-06] MEDS: prednisoLONE ACETATE 1% OPTH SUSP 5ML RIGHTEYE SCH ×3 (12:00→22:43)
[2022-06-06] MEDS: BRIMONIDINE 0.2% OPTH Soln 5ml RIGHTEYE SCH ×3 (12:01→22:43)
[2022-06-06] MEDS: DORZOLAMIDE HCL 2% OPTH(EYE) SOL 10ML RIGHTEYE SCH ×3 (12:01→22:43)
[2022-06-06] MEDS: SODIUM FERR GLUC 62.5MG/5ML 125 MG in SODIUM CHL 0.9% 100 ML IV SCH (13:31)
[2022-06-06] MEDS ORDERED: DOBUTamine 1000MCG/ML 250 ML IV SCH (14:00)
[2022-06-06] MEDS ORDERED: DOBUTamine 1000MCG/ML 250 ML IV ONE (14:07)
[2022-06-06] MEDS ORDERED: FUROSEMIDE 100 MG/10ML VIAL IV ONE (17:15)
[2022-06-06] MEDS: FUROSEMIDE INJECTION 100 MG in SODIUM CHL 0.9% 100 ML IV SCH ×2 (17:27→17:50)
[2022-06-06] MEDS: FERROUS SULFATE 325mg EC TAB PO SCH (18:06)
[2022-06-06] MEDS: KETOROLAC RIGHTEYE SCH (22:00)
[2022-06-06] MEDS: ATORVASTATIN 20 MG TAB PO SCH (22:38)
[2022-06-06] MEDS: LATANOPROST 0.005 % OPTH(EYE) SOL 2.5ML EACHEYE SCH (22:41)
[2022-06-07] VITALS (65 sets, daily range): BP systolic 59–157; BP diastolic 28–104
[2022-06-07] MEDS: InsuLIN REG 1unit/0.01ml Soln (100units/ml) SC SCH ×4 (00:08→17:25)
[2022-06-07] MEDS: ACCU-CHEK COMFORT CURVE STRIP VI SCH ×4 (00:19→17:27)
[2022-06-07 03:54] LABS: Basophils # (auto) 0.1 10 ^3/uL (0-0.2); Eosinophils # (auto) 0.2 10 ^3/uL (0-0.8); Hematocrit 22.2 % (41.0-53.0); Hemoglobin 7.5 g/dL (13.5-17.5); Lymphocytes # (auto) 1.2 10 ^3/uL (0.4-5.4); Mean Corpuscular Hemoglobin 27.8 pg (28.0-32.0); Mean Corpuscular Hgb Conc. 33.9 g/dL (32.0-36.0); Monocytes # (auto) 1.1 10 ^3/uL (0-1.3); Nucleated Red Blood Cells % 0.1 %; Red Blood Cells 2.71 10^6/uL (4.5-5.90); White Blood Cell 14.5 10^3/uL (4.4-10.8)
[2022-06-07] MEDS: FUROSEMIDE INJECTION 100 MG in SODIUM CHL 0.9% 100 ML IV SCH (03:54)
[2022-06-07 03:57] LABS: Basophils % (auto) 0.4 % (0.0-2.0); Eosinophils % (auto) 1.6 % (0.0-7.0); Lymphocytes % (auto) 8.1 % (10.0-50.0); Mean Corpuscular Volume 81.9 fL (80.0-100.0); Monocytes % (auto) 7.6 % (0.0-12.0); Neutrophils % (auto) 82.3 % (37.0-80.0); Red Cell Distribution Width 16.9 % (11.8-14.3)
[2022-06-07 04:35] LABS: Potassium 3.8 mmol/L (3.5-5.1)
[2022-06-07 04:39] LABS: BUN/Creatinine Ratio 17.4 (10.0-20.0); Calcium 8.4 mg/dL (8.5-10.1)
[2022-06-07] MEDS: prednisoLONE ACETATE 1% OPTH SUSP 5ML RIGHTEYE SCH ×2 (06:00→14:00)
[2022-06-07] MEDS: KETOROLAC RIGHTEYE SCH ×2 (06:00→14:00)
[2022-06-07] MEDS: DORZOLAMIDE HCL 2% OPTH(EYE) SOL 10ML RIGHTEYE SCH ×2 (06:00→14:00)
[2022-06-07] MEDS: BRIMONIDINE 0.2% OPTH Soln 5ml RIGHTEYE SCH ×2 (06:00→14:00)
[2022-06-07] MEDS: PANTOPRAZOLE 40 MG/10 ML VIAL INJ IV SCH (09:58)
[2022-06-07] MEDS: RANOLAZINE ER 500 MG TAB PO SCH ×2 (09:59→22:00)
[2022-06-07] MEDS: CARVEDILOL 12.5 MG TAB PO SCH (09:59)
[2022-06-07] MEDS: FERROUS SULFATE 325mg EC TAB PO SCH ×2 (10:01→17:21)
[2022-06-07] MEDS ORDERED: LIDOCAINE 2% (LOCAL ANESTH.) PF 5ml SDV ONE (11:07)
[2022-06-07] MEDS: ASPirin 81 mg TAB PO SCH (11:56)
[2022-06-07] MEDS: CLOPIDOGREL BISULFATE 75 MG TAB PO SCH (11:56)
[2022-06-07] MEDS ORDERED: SODIUM CHL 0.9% 1000 ML BAG XX ONE (12:45)
[2022-06-07] MEDS: ALBUMIN 25% 100 ML IV SCH ×2 (12:50→13:13)
[2022-06-07] MEDS ORDERED: NOREPINEPHRINE 8 MG/250ML KIT 250 ML IV ONE (14:35)
[2022-06-07] MEDS: NOREPINEPHRINE 8 MG/250ML KIT 250 ML IV SCH (14:45)
[2022-06-07] MEDS ORDERED: DOPamine 1600MCG/ML D5W 250 ML IV SCH (15:15)
[2022-06-07] MEDS: ENOXAPARIN SOD 30 MG/0.3 ML SYRINGE SC SCH (17:22)
[2022-06-07] MEDS: MIDAZOLAM DRIP 50 mg/50mL 50 ML IV SCH (18:30)
[2022-06-07] MEDS ORDERED: ETOMIDATE (2MG/ML) 20ML VIAL IV ONE ×2 (18:50→18:54)
[2022-06-07] MEDS ORDERED: ROCURONIUM 10MG/ML 10ML VIAL IV ONE ×2 (18:50→18:54)
[2022-06-07] MEDS: PROPOFOL 100 ML IV SCH (19:00)
[2022-06-07] MEDS: ATORVASTATIN 20 MG TAB PO SCH (22:54)
[2022-06-08] VITALS (104 sets, daily range): BP systolic 87–130; BP diastolic 36–70
[2022-06-08] MEDS: InsuLIN REG 1unit/0.01ml Soln (100units/ml) SC SCH ×4 (00:23→18:00)
[2022-06-08] MEDS: ACCU-CHEK COMFORT CURVE STRIP VI SCH ×4 (00:24→18:00)
[2022-06-08] MEDS: LATANOPROST 0.005 % OPTH(EYE) SOL 2.5ML EACHEYE SCH ×2 (00:26→21:13)
[2022-06-08] MEDS: KETOROLAC RIGHTEYE SCH ×4 (00:29→21:14)
[2022-06-08] MEDS: BRIMONIDINE 0.2% OPTH Soln 5ml RIGHTEYE SCH ×4 (00:31→21:12)
[2022-06-08] MEDS: prednisoLONE ACETATE 1% OPTH SUSP 5ML RIGHTEYE SCH ×4 (00:37→21:12)
[2022-06-08] MEDS: DORZOLAMIDE HCL 2% OPTH(EYE) SOL 10ML RIGHTEYE SCH ×4 (00:42→21:12)
[2022-06-08] MEDS: PROPOFOL 100 ML IV SCH ×3 (02:48→20:59)
[2022-06-08 04:40] LABS: Basophils # (auto) 0.1 10 ^3/uL (0-0.2); Basophils % (auto) 0.6 % (0.0-2.0); Eosinophils # (auto) 0.1 10 ^3/uL (0-0.8); Eosinophils % (auto) 0.5 % (0.0-7.0); Lymphocytes # (auto) 1.7 10 ^3/uL (0.4-5.4); Lymphocytes % (auto) 12.3 % (10.0-50.0); Monocytes # (auto) 1.1 10 ^3/uL (0-1.3); Nucleated Red Blood Cells % 0.1 %
[2022-06-08 04:44] LABS: Hematocrit 19.7 % (41.0-53.0); Mean Corpuscular Hgb Conc. 34.8 g/dL (32.0-36.0); Mean Corpuscular Volume 80.4 fL (80.0-100.0); Monocytes % (auto) 7.9 % (0.0-12.0); Neutrophils # (auto) 10.8 10 ^3/uL (1.6-8.6); Neutrophils % (auto) 78.7 % (37.0-80.0); Red Blood Cells 2.45 10^6/uL (4.5-5.90); Red Cell Distribution Width 17.3 % (11.8-14.3); White Blood Cell 13.7 10^3/uL (4.4-10.8)
[2022-06-08 05:00] LABS: BUN/Creatinine Ratio 14.3 (10.0-20.0); Calcium 8.6 mg/dL (8.5-10.1); Potassium 4.1 mmol/L (3.5-5.1)
[2022-06-08 05:06] LABS: Hemoglobin 6.9 g/dL (13.5-17.5)
[2022-06-08] MEDS: FERROUS SULFATE 325mg EC TAB PO SCH ×2 (08:00→17:47)
[2022-06-08] MEDS: ENOXAPARIN SOD 30 MG/0.3 ML SYRINGE SC SCH (08:29)
[2022-06-08] MEDS: PANTOPRAZOLE 40 MG/10 ML VIAL INJ IV SCH (09:40)
[2022-06-08] MEDS: ASPirin 81 mg TAB PO SCH (09:40)
[2022-06-08] MEDS: CLOPIDOGREL BISULFATE 75 MG TAB PO SCH (09:40)
[2022-06-08] MEDS: levoFLOXacin 250MG 50 ML IV SCH (14:19)
[2022-06-08 16:35] LABS: Hematocrit 24.5 % (41.0-53.0); Hemoglobin 8.2 g/dL (13.5-17.5)
[2022-06-08] MEDS: NOREPINEPHRINE 8 MG/250ML KIT 250 ML IV SCH (17:06)
[2022-06-08] MEDS: FERROUS SULFATE 300 MG/5 ML ORAL LIQ PO SCH (19:08)
[2022-06-08] MEDS: MIDAZOLAM DRIP 50 mg/50mL 50 ML IV SCH (19:12)
[2022-06-08] MEDS: ATORVASTATIN 20 MG TAB PO SCH (21:10)
[2022-06-08] MEDS ORDERED: ALBUMIN 25% 100 ML IV PRN (21:45)
[2022-06-09] VITALS (95 sets, daily range): BP systolic 107–143; BP diastolic 41–59
[2022-06-09] MEDS: ACCU-CHEK COMFORT CURVE STRIP VI SCH ×4 (00:04→17:50)
[2022-06-09] MEDS: PROPOFOL 100 ML IV SCH ×4 (01:43→20:14)
[2022-06-09 04:33] LABS: Basophils # (auto) 0.1 10 ^3/uL (0-0.2); Basophils % (auto) 0.7 % (0.0-2.0); Eosinophils # (auto) 0.4 10 ^3/uL (0-0.8); Eosinophils % (auto) 2.6 % (0.0-7.0); Hematocrit 23.9 % (41.0-53.0); Hemoglobin 8.4 g/dL (13.5-17.5); Lymphocytes # (auto) 1.6 10 ^3/uL (0.4-5.4); Lymphocytes % (auto) 10.6 % (10.0-50.0); Mean Corpuscular Hemoglobin 28.7 pg (28.0-32.0); Mean Corpuscular Hgb Conc. 34.9 g/dL (32.0-36.0); Mean Corpuscular Volume 82.2 fL (80.0-100.0); Monocytes % (auto) 6.6 % (0.0-12.0); Neutrophils % (auto) 79.5 % (37.0-80.0); Nucleated Red Blood Cells % 0.1 %; Red Blood Cells 2.91 10^6/uL (4.5-5.90); Red Cell Distribution Width 17.6 % (11.8-14.3); White Blood Cell 15.1 10^3/uL (4.4-10.8)
[2022-06-09 04:45] LABS: Albumin 2.6 g/dL (3.4-5.0); Calcium 8.2 mg/dL (8.5-10.1); Potassium 3.5 mmol/L (3.5-5.1)
[2022-06-09 04:48] LABS: BUN/Creatinine Ratio 15.3 (10.0-20.0); Bilirubin, Total 0.7 mg/dL (0.2-1.0); Total Protein 6.3 g/dL (6.4-8.2)
[2022-06-09] MEDS: InsuLIN REG 1unit/0.01ml Soln (100units/ml) SC SCH ×4 (06:00→17:51)
[2022-06-09] MEDS: BRIMONIDINE 0.2% OPTH Soln 5ml RIGHTEYE SCH ×3 (06:06→22:12)
[2022-06-09] MEDS: prednisoLONE ACETATE 1% OPTH SUSP 5ML RIGHTEYE SCH ×3 (06:06→22:05)
[2022-06-09] MEDS: KETOROLAC RIGHTEYE SCH ×3 (06:06→22:07)
[2022-06-09] MEDS: DORZOLAMIDE HCL 2% OPTH(EYE) SOL 10ML RIGHTEYE SCH ×3 (06:06→22:09)
[2022-06-09] MEDS ORDERED: SODIUM CHL 0.9% 1000 ML BAG XX ONE (07:00)
[2022-06-09] MEDS: FERROUS SULFATE 300 MG/5 ML ORAL LIQ PO SCH ×2 (08:47→17:50)
[2022-06-09] MEDS: PANTOPRAZOLE 40 MG/10 ML VIAL INJ IV SCH (12:48)
[2022-06-09] MEDS: CLOPIDOGREL BISULFATE 75 MG TAB PO SCH (12:49)
[2022-06-09] MEDS: ASPirin 81 mg TAB PO SCH (12:49)
[2022-06-09] MEDS ORDERED: OPTISON 3ml Vial for INJ IV ONE (13:54)
[2022-06-09] MEDS: NOREPINEPHRINE 8 MG/250ML KIT 250 ML IV SCH (14:45)
[2022-06-09] MEDS ORDERED: Nepro With Carb Steady 1 Liter Bottle GT SCH (15:45)
[2022-06-09] MEDS: MIDAZOLAM DRIP 50 mg/50mL 50 ML IV SCH (17:50)
[2022-06-09] MEDS: ATORVASTATIN 20 MG TAB PO SCH (22:02)
[2022-06-09] MEDS: LATANOPROST 0.005 % OPTH(EYE) SOL 2.5ML EACHEYE SCH (22:03)
[2022-06-10] VITALS (101 sets, daily range): BP systolic 101–156; BP diastolic 35–79
[2022-06-10] MEDS: ACCU-CHEK COMFORT CURVE STRIP VI SCH ×5 (00:20→23:23)
[2022-06-10] MEDS: PROPOFOL 100 ML IV SCH ×3 (00:48→23:23)
[2022-06-10 04:32] LABS: Basophils # (auto) 0.1 10 ^3/uL (0-0.2); Basophils % (auto) 0.9 % (0.0-2.0); Eosinophils # (auto) 0.5 10 ^3/uL (0-0.8); Eosinophils % (auto) 4.7 % (0.0-7.0); Hematocrit 24.6 % (41.0-53.0); Hemoglobin 8.7 g/dL (13.5-17.5); Lymphocytes # (auto) 1.1 10 ^3/uL (0.4-5.4); Lymphocytes % (auto) 9.9 % (10.0-50.0); Mean Corpuscular Hemoglobin 28.9 pg (28.0-32.0); Mean Corpuscular Hgb Conc. 35.5 g/dL (32.0-36.0); Mean Corpuscular Volume 81.3 fL (80.0-100.0); Monocytes % (auto) 8.5 % (0.0-12.0); Neutrophils # (auto) 8.6 10 ^3/uL (1.6-8.6); Red Blood Cells 3.03 10^6/uL (4.5-5.90); Red Cell Distribution Width 17.6 % (11.8-14.3); White Blood Cell 11.3 10^3/uL (4.4-10.8)
[2022-06-10 04:48] LABS: BUN/Creatinine Ratio 16.8 (10.0-20.0); Calcium 8.5 mg/dL (8.5-10.1); Potassium 3.1 mmol/L (3.5-5.1)
[2022-06-10] MEDS: KETOROLAC RIGHTEYE SCH ×3 (05:32→21:22)
[2022-06-10] MEDS: BRIMONIDINE 0.2% OPTH Soln 5ml RIGHTEYE SCH ×3 (05:33→21:23)
[2022-06-10] MEDS: prednisoLONE ACETATE 1% OPTH SUSP 5ML RIGHTEYE SCH ×3 (05:34→21:24)
[2022-06-10] MEDS: DORZOLAMIDE HCL 2% OPTH(EYE) SOL 10ML RIGHTEYE SCH ×3 (05:35→21:23)
[2022-06-10] MEDS: InsuLIN REG 1unit/0.01ml Soln (100units/ml) SC SCH ×5 (05:41→23:29)
[2022-06-10] MEDS: FERROUS SULFATE 300 MG/5 ML ORAL LIQ PO SCH ×2 (10:12→18:42)
[2022-06-10] MEDS: POTASSIUM CHL 20MEQ/100ML 100 ML IV SCH ×2 (10:12→12:13)
[2022-06-10] MEDS: PANTOPRAZOLE 40 MG/10 ML VIAL INJ IV SCH (10:12)
[2022-06-10] MEDS: ASPirin 81 mg TAB PO SCH (10:13)
[2022-06-10] MEDS: CLOPIDOGREL BISULFATE 75 MG TAB PO SCH (10:13)
[2022-06-10] MEDS: levoFLOXacin 250MG 50 ML IV SCH (13:00)
[2022-06-10] MEDS: NOREPINEPHRINE 8 MG/250ML KIT 250 ML IV SCH (14:45)
[2022-06-10] MEDS ORDERED: FUROSEMIDE INJECTION 10 ML ONE (15:27)
[2022-06-10] MEDS ORDERED: FUROSEMIDE 100 MG/10ML VIAL IV ONE (15:30)
[2022-06-10] MEDS: MIDAZOLAM DRIP 50 mg/50mL 50 ML IV SCH (18:30)
[2022-06-10] MEDS: LATANOPROST 0.005 % OPTH(EYE) SOL 2.5ML EACHEYE SCH (21:20)
[2022-06-10] MEDS: ATORVASTATIN 20 MG TAB PO SCH (21:20)
[2022-06-11] VITALS (84 sets, daily range): BP systolic 126–158; BP diastolic 44–67
[2022-06-11 04:19] LABS: Basophils # (auto) 0.1 10 ^3/uL (0-0.2); Basophils % (auto) 0.9 % (0.0-2.0); Eosinophils # (auto) 0.4 10 ^3/uL (0-0.8); Hematocrit 26.9 % (41.0-53.0); Hemoglobin 9.2 g/dL (13.5-17.5); Lymphocytes # (auto) 1.4 10 ^3/uL (0.4-5.4); Lymphocytes % (auto) 13.9 % (10.0-50.0); Mean Corpuscular Hemoglobin 28.9 pg (28.0-32.0); Mean Corpuscular Hgb Conc. 34.3 g/dL (32.0-36.0); Mean Corpuscular Volume 84.1 fL (80.0-100.0); Monocytes # (auto) 1.1 10 ^3/uL (0-1.3); Monocytes % (auto) 10.7 % (0.0-12.0); Neutrophils # (auto) 7.2 10 ^3/uL (1.6-8.6); Neutrophils % (auto) 70.5 % (37.0-80.0); Nucleated Red Blood Cells % 0.1 %; Red Cell Distribution Width 17.1 % (11.8-14.3); White Blood Cell 10.3 10^3/uL (4.4-10.8)
[2022-06-11 04:46] LABS: Calcium 8.6 mg/dL (8.5-10.1); Magnesium 1.9 mg/dL (1.6-2.6); Potassium 3.1 mmol/L (3.5-5.1)
[2022-06-11 04:49] LABS: BUN/Creatinine Ratio 17.9 (10.0-20.0)
[2022-06-11] MEDS: PROPOFOL 100 ML IV SCH (05:08)
[2022-06-11] MEDS: InsuLIN REG 1unit/0.01ml Soln (100units/ml) SC SCH ×3 (06:00→18:00)
[2022-06-11] MEDS: ACCU-CHEK COMFORT CURVE STRIP VI SCH ×3 (06:01→18:41)
[2022-06-11] MEDS: DORZOLAMIDE HCL 2% OPTH(EYE) SOL 10ML RIGHTEYE SCH ×3 (06:03→21:47)
[2022-06-11] MEDS: KETOROLAC RIGHTEYE SCH ×3 (06:03→21:44)
[2022-06-11] MEDS: prednisoLONE ACETATE 1% OPTH SUSP 5ML RIGHTEYE SCH ×3 (06:03→21:44)
[2022-06-11] MEDS: BRIMONIDINE 0.2% OPTH Soln 5ml RIGHTEYE SCH ×3 (06:03→21:44)
[2022-06-11] MEDS: FERROUS SULFATE 300 MG/5 ML ORAL LIQ PO SCH ×2 (09:49→18:42)
[2022-06-11] MEDS: PANTOPRAZOLE 40 MG/10 ML VIAL INJ IV SCH (09:49)
[2022-06-11] MEDS: ASPirin 81 mg TAB PO SCH (09:50)
[2022-06-11] MEDS: CLOPIDOGREL BISULFATE 75 MG TAB PO SCH (09:50)
[2022-06-11] MEDS ORDERED: POTASSIUM CHLORIDE 60 MEQ, LIDOCAINE 1% (LOCAL ANESTH.) 6 ML in SODIUM CHL 0.9% 500 ML IV ONE (10:45)
[2022-06-11] MEDS ORDERED: hydrALAZINE HCL 20 MG/ML VL IV PRN (10:45)
[2022-06-11] MEDS ORDERED: FUROSEMIDE 40 MG/4 ML VIAL IV ONE (12:45)
[2022-06-11 12:54] LABS: Hepatitis A Ab IgM Negative; Hepatitis B Core IgM Negative; Hepatitis C Antibody Negative (Negative)
[2022-06-11] MEDS ORDERED: NITROGLYCERIN 2% OINT 1GM PKG TD ONE (14:00)
[2022-06-11] MEDS: NOREPINEPHRINE 8 MG/250ML KIT 250 ML IV SCH (14:45)
[2022-06-11] MEDS: MIDAZOLAM DRIP 50 mg/50mL 50 ML IV SCH (18:30)
[2022-06-11] MEDS: ATORVASTATIN 20 MG TAB PO SCH (21:27)
[2022-06-11] MEDS: CARVEDILOL 3.125 MG TAB PO SCH (21:27)
[2022-06-11] MEDS: LATANOPROST 0.005 % OPTH(EYE) SOL 2.5ML EACHEYE SCH (21:45)
[2022-06-12] VITALS (26 sets, daily range): BP systolic 102–155; BP diastolic 39–122
[2022-06-12] MEDS: ACCU-CHEK COMFORT CURVE STRIP VI SCH ×5 (00:46→23:10)
[2022-06-12 03:55] LABS: Basophils # (auto) 0.1 10 ^3/uL (0-0.2); Basophils % (auto) 0.9 % (0.0-2.0); Eosinophils # (auto) 0.4 10 ^3/uL (0-0.8); Eosinophils % (auto) 3.6 % (0.0-7.0); Hemoglobin 9.8 g/dL (13.5-17.5); Lymphocytes # (auto) 1.1 10 ^3/uL (0.4-5.4); Lymphocytes % (auto) 11.7 % (10.0-50.0); Mean Corpuscular Hemoglobin 28.2 pg (28.0-32.0); Mean Corpuscular Hgb Conc. 33.9 g/dL (32.0-36.0); Mean Corpuscular Volume 83.3 fL (80.0-100.0); Monocytes % (auto) 9.9 % (0.0-12.0); Neutrophils # (auto) 7.2 10 ^3/uL (1.6-8.6); Neutrophils % (auto) 73.9 % (37.0-80.0); Red Blood Cells 3.48 10^6/uL (4.5-5.90); Red Cell Distribution Width 17.8 % (11.8-14.3); White Blood Cell 9.8 10^3/uL (4.4-10.8)
[2022-06-12 04:11] LABS: Potassium 3.8 mmol/L (3.5-5.1)
[2022-06-12 04:19] LABS: BUN/Creatinine Ratio 17.6 (10.0-20.0); Calcium 8.8 mg/dL (8.5-10.1)
[2022-06-12] MEDS: KETOROLAC RIGHTEYE SCH ×4 (05:56→21:21)
[2022-06-12] MEDS: BRIMONIDINE 0.2% OPTH Soln 5ml RIGHTEYE SCH ×3 (05:56→21:07)
[2022-06-12] MEDS: DORZOLAMIDE HCL 2% OPTH(EYE) SOL 10ML RIGHTEYE SCH ×3 (05:58→21:07)
[2022-06-12] MEDS: InsuLIN REG 1unit/0.01ml Soln (100units/ml) SC SCH ×5 (05:59→23:10)
[2022-06-12] MEDS: prednisoLONE ACETATE 1% OPTH SUSP 5ML RIGHTEYE SCH ×3 (05:59→21:07)
[2022-06-12] MEDS: CLOPIDOGREL BISULFATE 75 MG TAB PO SCH (09:16)
[2022-06-12] MEDS: CARVEDILOL 3.125 MG TAB PO SCH ×2 (09:16)
[2022-06-12] MEDS: FERROUS SULFATE 300 MG/5 ML ORAL LIQ PO SCH ×2 (09:17→16:53)
[2022-06-12] MEDS: PANTOPRAZOLE 40 MG/10 ML VIAL INJ IV SCH (09:17)
[2022-06-12] MEDS: ASPirin 81 mg TAB PO SCH (09:17)
[2022-06-12] MEDS: levoFLOXacin 250MG 50 ML IV SCH (12:53)
[2022-06-12] MEDS ORDERED: FUROSEMIDE 40 MG/4 ML VIAL IV ONE (14:00)
[2022-06-12] MEDS: LATANOPROST 0.005 % OPTH(EYE) SOL 2.5ML EACHEYE SCH (21:06)
[2022-06-12] MEDS: ATORVASTATIN 20 MG TAB PO SCH (21:06)
[2022-06-13] VITALS (45 sets, daily range): BP systolic 87–157; BP diastolic 38–72
[2022-06-13 04:53] LABS: BUN/Creatinine Ratio 20.6 (10.0-20.0); Calcium 8.4 mg/dL (8.5-10.1); Potassium 3.5 mmol/L (3.5-5.1)
[2022-06-13] MEDS: BRIMONIDINE 0.2% OPTH Soln 5ml RIGHTEYE SCH ×3 (06:06→22:29)
[2022-06-13] MEDS: DORZOLAMIDE HCL 2% OPTH(EYE) SOL 10ML RIGHTEYE SCH ×3 (06:07→22:29)
[2022-06-13] MEDS: prednisoLONE ACETATE 1% OPTH SUSP 5ML RIGHTEYE SCH ×3 (06:07→22:29)
[2022-06-13] MEDS: ACCU-CHEK COMFORT CURVE STRIP VI SCH ×3 (06:27→17:28)
[2022-06-13] MEDS: InsuLIN REG 1unit/0.01ml Soln (100units/ml) SC SCH ×3 (06:28→17:28)
[2022-06-13] MEDS: FUROSEMIDE 40 MG/4 ML VIAL IV SCH (10:57)
[2022-06-13] MEDS: PANTOPRAZOLE 40 MG/10 ML VIAL INJ IV SCH (10:57)
[2022-06-13] MEDS: FERROUS SULFATE 300 MG/5 ML ORAL LIQ PO SCH ×2 (10:57→19:21)
[2022-06-13] MEDS: CARVEDILOL 3.125 MG TAB PO SCH ×2 (10:58→22:20)
[2022-06-13] MEDS: CLOPIDOGREL BISULFATE 75 MG TAB PO SCH (10:58)
[2022-06-13] MEDS: ASPirin 81 mg TAB PO SCH (10:59)
[2022-06-13] MEDS: KETOROLAC RIGHTEYE SCH ×2 (14:58→22:00)
[2022-06-13] MEDS: ATORVASTATIN 20 MG TAB PO SCH (22:21)
[2022-06-14] VITALS (18 sets, daily range): BP systolic 103–156; BP diastolic 29–83
[2022-06-14] MEDS: ACCU-CHEK COMFORT CURVE STRIP VI SCH ×4 (00:19→18:03)
[2022-06-14] MEDS: LATANOPROST 0.005 % OPTH(EYE) SOL 2.5ML EACHEYE SCH ×2 (00:19→22:03)
[2022-06-14] MEDS: InsuLIN REG 1unit/0.01ml Soln (100units/ml) SC SCH ×4 (00:23→18:06)
[2022-06-14 04:21] LABS: Basophils # (auto) 0.2 10 ^3/uL (0-0.2); Basophils % (auto) 1.8 % (0.0-2.0); Eosinophils # (auto) 0.6 10 ^3/uL (0-0.8); Eosinophils % (auto) 5.3 % (0.0-7.0); Hematocrit 26.6 % (41.0-53.0); Lymphocytes # (auto) 1.5 10 ^3/uL (0.4-5.4); Lymphocytes % (auto) 13.6 % (10.0-50.0); Mean Corpuscular Hemoglobin 28.8 pg (28.0-32.0); Mean Corpuscular Hgb Conc. 33.9 g/dL (32.0-36.0); Monocytes # (auto) 0.9 10 ^3/uL (0-1.3); Monocytes % (auto) 8.6 % (0.0-12.0); Neutrophils # (auto) 7.5 10 ^3/uL (1.6-8.6); Neutrophils % (auto) 70.7 % (37.0-80.0); Red Blood Cells 3.13 10^6/uL (4.5-5.90); Red Cell Distribution Width 17.4 % (11.8-14.3); White Blood Cell 10.7 10^3/uL (4.4-10.8)
[2022-06-14 04:38] LABS: BUN/Creatinine Ratio 22.2 (10.0-20.0); Calcium 8.7 mg/dL (8.5-10.1); Potassium 3.7 mmol/L (3.5-5.1)
[2022-06-14] MEDS: DORZOLAMIDE HCL 2% OPTH(EYE) SOL 10ML RIGHTEYE SCH ×3 (05:41→22:02)
[2022-06-14] MEDS: BRIMONIDINE 0.2% OPTH Soln 5ml RIGHTEYE SCH ×3 (05:42→22:03)
[2022-06-14] MEDS: prednisoLONE ACETATE 1% OPTH SUSP 5ML RIGHTEYE SCH ×3 (05:43→22:03)
[2022-06-14] MEDS: KETOROLAC RIGHTEYE SCH ×3 (06:00→22:04)
[2022-06-14] MEDS: FERROUS SULFATE 300 MG/5 ML ORAL LIQ PO SCH ×2 (09:28→18:03)
[2022-06-14] MEDS: ASPirin 81 mg TAB PO SCH (09:28)
[2022-06-14] MEDS: PANTOPRAZOLE 40 MG/10 ML VIAL INJ IV SCH (09:28)
[2022-06-14] MEDS: FUROSEMIDE 40 MG/4 ML VIAL IV SCH (09:28)
[2022-06-14] MEDS: CLOPIDOGREL BISULFATE 75 MG TAB PO SCH (09:29)
[2022-06-14] MEDS: CARVEDILOL 3.125 MG TAB PO SCH ×2 (13:15→22:02)
[2022-06-14] MEDS: levoFLOXacin 250MG 50 ML IV SCH (14:39)
[2022-06-14] MEDS: ATORVASTATIN 20 MG TAB PO SCH (22:02)
[2022-06-15] MEDS: ACCU-CHEK COMFORT CURVE STRIP VI SCH ×4 (00:09→18:00)
[2022-06-15] MEDS: InsuLIN REG 1unit/0.01ml Soln (100units/ml) SC SCH ×4 (00:13→18:00)
[2022-06-15 05:00] VITALS: BP 146/68
[2022-06-15] MEDS: BRIMONIDINE 0.2% OPTH Soln 5ml RIGHTEYE SCH ×2 (05:49→14:50)
[2022-06-15] MEDS: prednisoLONE ACETATE 1% OPTH SUSP 5ML RIGHTEYE SCH ×2 (05:49→14:51)
[2022-06-15] MEDS: KETOROLAC RIGHTEYE SCH ×2 (05:49→14:00)
[2022-06-15] MEDS: DORZOLAMIDE HCL 2% OPTH(EYE) SOL 10ML RIGHTEYE SCH ×2 (05:50→14:51)
[2022-06-15 06:35] LABS: Basophils # (auto) 0.2 10 ^3/uL (0-0.2); Basophils % (auto) 2.1 % (0.0-2.0); Eosinophils # (auto) 0.5 10 ^3/uL (0-0.8); Eosinophils % (auto) 5.4 % (0.0-7.0); Hematocrit 25.6 % (41.0-53.0); Hemoglobin 8.8 g/dL (13.5-17.5); Lymphocytes # (auto) 1.4 10 ^3/uL (0.4-5.4); Lymphocytes % (auto) 15.4 % (10.0-50.0); Mean Corpuscular Hemoglobin 28.4 pg (28.0-32.0); Mean Corpuscular Hgb Conc. 34.6 g/dL (32.0-36.0); Mean Corpuscular Volume 82.1 fL (80.0-100.0); Monocytes # (auto) 0.7 10 ^3/uL (0-1.3); Monocytes % (auto) 8.2 % (0.0-12.0); Neutrophils # (auto) 6.3 10 ^3/uL (1.6-8.6); Neutrophils % (auto) 68.9 % (37.0-80.0); Nucleated Red Blood Cells % 0.1 %; Red Blood Cells 3.11 10^6/uL (4.5-5.90); Red Cell Distribution Width 17.1 % (11.8-14.3); White Blood Cell 9.1 10^3/uL (4.4-10.8)
[2022-06-15 07:08] LABS: Potassium 3.9 mmol/L (3.5-5.1)
[2022-06-15 07:14] LABS: BUN/Creatinine Ratio 23.7 (10.0-20.0); Calcium 8.5 mg/dL (8.5-10.1)
[2022-06-15 08:00] VITALS: BP 147/66
[2022-06-15 09:00] VITALS: BP 147/66
[2022-06-15] MEDS: ASPirin 81 mg TAB PO SCH (09:10)
[2022-06-15] MEDS: CLOPIDOGREL BISULFATE 75 MG TAB PO SCH (09:13)
[2022-06-15] MEDS: CARVEDILOL 3.125 MG TAB PO SCH ×2 (09:13→22:40)
[2022-06-15] MEDS: FERROUS SULFATE 300 MG/5 ML ORAL LIQ PO SCH ×2 (09:14→19:11)
[2022-06-15] MEDS: PANTOPRAZOLE 40 MG TAB PO SCH (10:00)
[2022-06-15] MEDS: FUROSEMIDE 40 MG TAB PO SCH (10:48)
[2022-06-15 13:00] VITALS: BP 129/60
[2022-06-15 17:00] VITALS: BP 116/52
[2022-06-15 21:57] VITALS: BP 139/66
[2022-06-15] MEDS: ATORVASTATIN 20 MG TAB PO SCH (22:39)
[2022-06-16] MEDS: ACCU-CHEK COMFORT CURVE STRIP VI SCH ×5 (04:09→23:16)
[2022-06-16] MEDS: BRIMONIDINE 0.2% OPTH Soln 5ml RIGHTEYE SCH ×4 (05:23→21:35)
[2022-06-16] MEDS: DORZOLAMIDE HCL 2% OPTH(EYE) SOL 10ML RIGHTEYE SCH ×4 (05:23→21:34)
[2022-06-16] MEDS: LATANOPROST 0.005 % OPTH(EYE) SOL 2.5ML EACHEYE SCH ×2 (05:23→21:35)
[2022-06-16] MEDS: prednisoLONE ACETATE 1% OPTH SUSP 5ML RIGHTEYE SCH ×4 (05:23→21:35)
[2022-06-16] MEDS: KETOROLAC RIGHTEYE SCH ×4 (05:23→21:39)
[2022-06-16] MEDS: InsuLIN REG 1unit/0.01ml Soln (100units/ml) SC SCH ×5 (05:24→23:16)
[2022-06-16 05:46] VITALS: BP 130/53
[2022-06-16 09:00] VITALS: BP 135/60
[2022-06-16] MEDS: FUROSEMIDE 40 MG TAB PO SCH ×2 (11:39→21:31)
[2022-06-16] MEDS: FERROUS SULFATE 300 MG/5 ML ORAL LIQ PO SCH ×2 (11:40→18:10)
[2022-06-16] MEDS: PANTOPRAZOLE 40 MG TAB PO SCH (11:40)
[2022-06-16] MEDS: ASPirin 81 mg TAB PO SCH (11:40)
[2022-06-16] MEDS: CLOPIDOGREL BISULFATE 75 MG TAB PO SCH (11:40)
[2022-06-16] MEDS: CARVEDILOL 3.125 MG TAB PO SCH ×2 (11:41→21:31)
[2022-06-16] MEDS ORDERED: FUROSEMIDE 40 MG/4 ML VIAL IV ONE (12:15)
[2022-06-16 13:00] VITALS: BP 140/60
[2022-06-16 13:48] LABS: Potassium 4.1 mmol/L (3.5-5.1)
[2022-06-16 13:55] LABS: BUN/Creatinine Ratio 24.4 (10.0-20.0); Calcium 8.8 mg/dL (8.5-10.1)
[2022-06-16 16:55] VITALS: BP 122/60
[2022-06-16] MEDS: ATORVASTATIN 20 MG TAB PO SCH (21:30)
[2022-06-16 22:00] VITALS: BP 128/60
[2022-06-17 04:57] VITALS: BP 137/60
[2022-06-17] MEDS: InsuLIN REG 1unit/0.01ml Soln (100units/ml) SC SCH ×4 (06:00→23:17)
[2022-06-17] MEDS: KETOROLAC RIGHTEYE SCH ×3 (06:00→21:45)
[2022-06-17] MEDS: BRIMONIDINE 0.2% OPTH Soln 5ml RIGHTEYE SCH ×3 (06:11→21:46)
[2022-06-17] MEDS: prednisoLONE ACETATE 1% OPTH SUSP 5ML RIGHTEYE SCH ×3 (06:11→21:46)
[2022-06-17] MEDS: DORZOLAMIDE HCL 2% OPTH(EYE) SOL 10ML RIGHTEYE SCH ×3 (06:11→21:46)
[2022-06-17] MEDS: ACCU-CHEK COMFORT CURVE STRIP VI SCH ×4 (06:13→23:17)
[2022-06-17 06:54] LABS: Basophils # (auto) 0.1 10 ^3/uL (0-0.2); Basophils % (auto) 1.3 % (0.0-2.0); Eosinophils # (auto) 0.4 10 ^3/uL (0-0.8); Eosinophils % (auto) 4.2 % (0.0-7.0); Hematocrit 26.4 % (41.0-53.0); Hemoglobin 8.7 g/dL (13.5-17.5); Lymphocytes % (auto) 10.8 % (10.0-50.0); Mean Corpuscular Hemoglobin 27.8 pg (28.0-32.0); Mean Corpuscular Volume 84.4 fL (80.0-100.0); Monocytes # (auto) 0.7 10 ^3/uL (0-1.3); Neutrophils # (auto) 7.4 10 ^3/uL (1.6-8.6); Neutrophils % (auto) 76.7 % (37.0-80.0); Red Blood Cells 3.13 10^6/uL (4.5-5.90); Red Cell Distribution Width 17.2 % (11.8-14.3); White Blood Cell 9.6 10^3/uL (4.4-10.8)
[2022-06-17 07:12] LABS: Calcium 8.4 mg/dL (8.5-10.1); Potassium 4.5 mmol/L (3.5-5.1)
[2022-06-17 07:14] LABS: BUN/Creatinine Ratio 27.8 (10.0-20.0)
[2022-06-17 09:00] VITALS: BP 125/55
[2022-06-17] MEDS: FERROUS SULFATE 300 MG/5 ML ORAL LIQ PO SCH ×2 (10:54→17:53)
[2022-06-17] MEDS: PANTOPRAZOLE 40 MG TAB PO SCH (10:56)
[2022-06-17] MEDS: ASPirin 81 mg TAB PO SCH (10:57)
[2022-06-17] MEDS: levoFLOXacin 250 MG TAB PO SCH (10:57)
[2022-06-17] MEDS: FUROSEMIDE 40 MG TAB PO SCH ×2 (10:57→21:45)
[2022-06-17] MEDS: CLOPIDOGREL BISULFATE 75 MG TAB PO SCH (10:57)
[2022-06-17] MEDS: CARVEDILOL 3.125 MG TAB PO SCH ×2 (10:58→21:44)
[2022-06-17 13:00] VITALS: BP 128/57
[2022-06-17 16:53] VITALS: BP 113/51
[2022-06-17 19:40] VITALS: BP 132/76
[2022-06-17] MEDS: ATORVASTATIN 20 MG TAB PO SCH (21:45)
[2022-06-17] MEDS: LATANOPROST 0.005 % OPTH(EYE) SOL 2.5ML EACHEYE SCH (21:45)
[2022-06-17 22:00] VITALS: BP 132/56
[2022-06-18 05:00] VITALS: BP 126/56
[2022-06-18] MEDS: BRIMONIDINE 0.2% OPTH Soln 5ml RIGHTEYE SCH ×3 (06:00→21:42)
[2022-06-18] MEDS: DORZOLAMIDE HCL 2% OPTH(EYE) SOL 10ML RIGHTEYE SCH ×3 (06:00→21:43)
[2022-06-18] MEDS: InsuLIN REG 1unit/0.01ml Soln (100units/ml) SC SCH ×4 (06:00→23:58)
[2022-06-18] MEDS: KETOROLAC RIGHTEYE SCH ×3 (06:00→21:42)
[2022-06-18] MEDS: prednisoLONE ACETATE 1% OPTH SUSP 5ML RIGHTEYE SCH ×3 (06:00→21:43)
[2022-06-18] MEDS: ACCU-CHEK COMFORT CURVE STRIP VI SCH ×4 (06:18→23:57)
[2022-06-18 08:35] VITALS: BP 129/90
[2022-06-18] MEDS: ASPirin 81 mg TAB PO SCH (09:07)
[2022-06-18] MEDS: PANTOPRAZOLE 40 MG TAB PO SCH (09:07)
[2022-06-18] MEDS: CLOPIDOGREL BISULFATE 75 MG TAB PO SCH (09:07)
[2022-06-18] MEDS: levoFLOXacin 250 MG TAB PO SCH (09:07)
[2022-06-18] MEDS: FERROUS SULFATE 300 MG/5 ML ORAL LIQ PO SCH ×2 (09:08→18:46)
[2022-06-18] MEDS: FUROSEMIDE 40 MG TAB PO SCH ×2 (09:08→21:39)
[2022-06-18] MEDS: CARVEDILOL 3.125 MG TAB PO SCH ×2 (09:10→21:38)
[2022-06-18 12:35] VITALS: BP 131/61
[2022-06-18] MEDS ORDERED: metOLazone 5 MG TAB PO ONE (14:30)
[2022-06-18 16:30] VITALS: BP 118/82
[2022-06-18] MEDS: ATORVASTATIN 20 MG TAB PO SCH (21:38)
[2022-06-18] MEDS: LATANOPROST 0.005 % OPTH(EYE) SOL 2.5ML EACHEYE SCH (21:42)
[2022-06-18 22:00] VITALS: BP 132/54
[2022-06-19 05:00] VITALS: BP 129/52
[2022-06-19] MEDS: BRIMONIDINE 0.2% OPTH Soln 5ml RIGHTEYE SCH ×2 (05:30→14:00)
[2022-06-19] MEDS: KETOROLAC RIGHTEYE SCH ×2 (05:30→14:00)
[2022-06-19] MEDS: prednisoLONE ACETATE 1% OPTH SUSP 5ML RIGHTEYE SCH ×2 (05:31→14:00)
[2022-06-19] MEDS: InsuLIN REG 1unit/0.01ml Soln (100units/ml) SC SCH ×3 (05:32→18:00)
[2022-06-19] MEDS: DORZOLAMIDE HCL 2% OPTH(EYE) SOL 10ML RIGHTEYE SCH ×2 (05:32→14:00)
[2022-06-19] MEDS: ACCU-CHEK COMFORT CURVE STRIP VI SCH ×3 (05:34→18:00)
[2022-06-19 07:03] LABS: Basophils # (auto) 0.1 10 ^3/uL (0-0.2); Eosinophils # (auto) 0.3 10 ^3/uL (0-0.8); Hemoglobin 8.2 g/dL (13.5-17.5); Lymphocytes # (auto) 1.1 10 ^3/uL (0.4-5.4); Lymphocytes % (auto) 16.7 % (10.0-50.0); Monocytes # (auto) 0.5 10 ^3/uL (0-1.3); Neutrophils # (auto) 4.7 10 ^3/uL (1.6-8.6)
[2022-06-19 07:07] LABS: Basophils % (auto) 1.7 % (0.0-2.0); Eosinophils % (auto) 4.5 % (0.0-7.0); Hematocrit 23.8 % (41.0-53.0); Mean Corpuscular Hemoglobin 29.2 pg (28.0-32.0); Mean Corpuscular Hgb Conc. 34.7 g/dL (32.0-36.0); Mean Corpuscular Volume 84.3 fL (80.0-100.0); Monocytes % (auto) 7.2 % (0.0-12.0); Neutrophils % (auto) 69.9 % (37.0-80.0); Red Blood Cells 2.82 10^6/uL (4.5-5.90); Red Cell Distribution Width 17.3 % (11.8-14.3); White Blood Cell 6.8 10^3/uL (4.4-10.8)
[2022-06-19 07:30] LABS: Potassium 4.5 mmol/L (3.5-5.1)
[2022-06-19 07:35] LABS: BUN/Creatinine Ratio 28.5 (10.0-20.0); Calcium 8.9 mg/dL (8.5-10.1)
[2022-06-19 09:00] VITALS: BP 140/65
[2022-06-19] MEDS: ASPirin 81 mg TAB PO SCH (11:03)
[2022-06-19] MEDS: levoFLOXacin 250 MG TAB PO SCH (11:03)
[2022-06-19] MEDS: FERROUS SULFATE 300 MG/5 ML ORAL LIQ PO SCH ×2 (11:03→18:00)
[2022-06-19] MEDS: CLOPIDOGREL BISULFATE 75 MG TAB PO SCH (11:03)
[2022-06-19] MEDS: PANTOPRAZOLE 40 MG TAB PO SCH (11:03)
[2022-06-19] MEDS: FUROSEMIDE 40 MG TAB PO SCH (11:04)
[2022-06-19] MEDS: CARVEDILOL 3.125 MG TAB PO SCH (11:05)
[2022-06-19 13:17] VITALS: BP 138/58
[2022-06-19] MEDS ORDERED: LEVO250T69 PO (13:21)
[2022-06-19] MEDS ORDERED: PANT40T PO (13:21)
[2022-06-19] MEDS ORDERED: ATOR20TA50 PO (13:21)
[2022-06-19] MEDS ORDERED: FURO40TA4 PO (13:21)
[2022-06-19] MEDS ORDERED: FERR-7 PO (13:21)
[2022-06-19] MEDS ORDERED: CLOP75TA70 PO (13:21)
[2022-06-19] MEDS ORDERED: CAR3125T PO (13:21)
[2022-06-19 16:48] VITALS: BP 133/70
[2022-06-19 17:00] VITALS: BP 138/62
== END 2022-06-19 20:45 | disposition home health service (06) | DRG 853 ==
LOC: EDBD 22:59 → ER 22:59 → TELE 05-28 04:06 → ICU WEST 05-28 07:48 → TELE-WESTW 06-14 17:10
PROVIDERS: ADMIT Nurse Practitioner; ATTEND Nurse Practitioner Acute Care
PROC: 0BH17EZ Insertion of Endotracheal Airway into Trachea, Via Natural or Artificial Opening (ICD-10-PCS; 2022-05-28)
PROC: 5A1955Z Respiratory Ventilation, Greater than 96 Consecutive Hours (ICD-10-PCS; 2022-05-28)
PROC: 06HM33Z Insertion of Infusion Device into Right Femoral Vein, Percutaneous Approach (ICD-10-PCS; 2022-05-28)
PROC: 5A12012 Performance of Cardiac Output, Single, Manual (ICD-10-PCS; 2022-05-28)
PROC: 30233N1 Transfusion of Nonautologous Red Blood Cells into Peripheral Vein, Percutaneous Approach (ICD-10-PCS; 2022-05-31)
PROC: 05HC33Z Insertion of Infusion Device into Left Basilic Vein, Percutaneous Approach (ICD-10-PCS; 2022-06-04)
PROC: B54NZZA Ultrasonography of Left Upper Extremity Veins, Guidance (ICD-10-PCS; 2022-06-04)
PROC: 027135Z Dilation of Coronary Artery, Two Arteries with Two Drug-eluting Intraluminal Devices, Percutaneous Approach (ICD-10-PCS; principal; 2022-06-05)
PROC: 02JA3ZZ Inspection of Heart, Percutaneous Approach (ICD-10-PCS; 2022-06-05)
PROC: B241ZZ3 Ultrasonography of Multiple Coronary Arteries, Intravascular (ICD-10-PCS; 2022-06-05)
PROC: 4A023N7 Measurement of Cardiac Sampling and Pressure, Left Heart, Percutaneous Approach (ICD-10-PCS; 2022-06-05)
PROC: B211YZZ Fluoroscopy of Multiple Coronary Arteries using Other Contrast (ICD-10-PCS; 2022-06-05)
PROC: B215YZZ Fluoroscopy of Left Heart using Other Contrast (ICD-10-PCS; 2022-06-05)
PROC: 4A033BC Measurement of Arterial Pressure, Coronary, Percutaneous Approach (ICD-10-PCS; 2022-06-05)
PROC: 02HV33Z Insertion of Infusion Device into Superior Vena Cava, Percutaneous Approach (ICD-10-PCS; 2022-06-07)
PROC: B548ZZA Ultrasonography of Superior Vena Cava, Guidance (ICD-10-PCS; 2022-06-07)
PROC: 5A0935A Assistance with Respiratory Ventilation, Less than 24 Consecutive Hours, High Flow/Velocity Cannula (ICD-10-PCS; 2022-06-07)
PROC: 5A1945Z Respiratory Ventilation, 24-96 Consecutive Hours (ICD-10-PCS; 2022-06-07)
PROC: 0BH17EZ Insertion of Endotracheal Airway into Trachea, Via Natural or Artificial Opening (ICD-10-PCS; 2022-06-07)
PROC: 5A1D70Z Performance of Urinary Filtration, Intermittent, Less than 6 Hours Per Day (ICD-10-PCS; 2022-06-07)
PROC: 5A1D70Z Performance of Urinary Filtration, Intermittent, Less than 6 Hours Per Day (ICD-10-PCS; 2022-06-09)
DX: A41.9 Sepsis, unspecified organism (principal); I21.4 Non-ST elevation (NSTEMI) myocardial infarction; I46.9 Cardiac arrest, cause unspecified; I50.43 Acute on chronic combined systolic (congestive) and diastolic (congestive) heart failure; J96.01 Acute respiratory failure with hypoxia; K72.00 Acute and subacute hepatic failure without coma; N17.0 Acute kidney failure with tubular necrosis; N18.6 End stage renal disease; J15.6 Pneumonia due to other Gram-negative bacteria; I13.2 Hypertensive heart and chronic kidney disease with heart failure and with stage 5 chronic kidney disease, or end stage renal disease; D62 Acute posthemorrhagic anemia; E87.3 Alkalosis; J98.11 Atelectasis; Z99.11 Dependence on respirator [ventilator] status; E66.01 Morbid (severe) obesity due to excess calories; E78.5 Hyperlipidemia, unspecified; E87.5 Hyperkalemia; I25.10 Atherosclerotic heart disease of native coronary artery without angina pectoris; D63.1 Anemia in chronic kidney disease; R31.9 Hematuria, unspecified; E87.6 Hypokalemia; E88.09 Other disorders of plasma-protein metabolism, not elsewhere classified; E11.22 Type 2 diabetes mellitus with diabetic chronic kidney disease; I25.2 Old myocardial infarction; Z82.49 Family history of ischemic heart disease and other diseases of the circulatory system; Z83.3 Family history of diabetes mellitus; Z90.49 Acquired absence of other specified parts of digestive tract
CPT/HCPCS: 31500; 36415; 36556; 36600; 70450; 71045; 76775; 80048; 80053; 80074; 81001; 82088; 82270; 82570; 82805; 82962; 83540; 83550; 83605; 83735; 83880; 84132; 84156; 84244; 84300; 84484; 85014; 85018; 85025; 85379; 85610; 85730; 86850; 86900; 86901; 86920; 86922; 87040; 87070; 87081; 87205; 87340; 87426; 90935; 92941; 92978; 93005; 93306; 93458; 93571; 94002; 94003; 94640; 94644; 96374; 96376; 97110; 97116; 97163; 97530; 99152; 99153; 99291; C1725; C1887; C9113; G0378; J0171; J0696; J1642; J1815; J2001; J2250; J2543; J2704; J3480; P9047; Q9956; Q9967

== ENCOUNTER 2022-06-24 10:12 | Inpatient (IN) | payer OTHER, MEDICAID ==
[2022-06-24] VITALS (8 sets, daily range): BP systolic 125–153; BP diastolic 46–69
[~2022-06-24] VITALS: Ht 167.6 cm; Wt 71.4 kg
[~2022-06-24 10:12] MED LIST changes: +ATOR20TA50 PO; +CAR3125T PO; +CLOP75TA70 PO; +FERR-7 PO; +FURO40TA4 PO; +LEVO250T69 PO; -LOSA25TA38 PO; +PANT40T PO
[2022-06-24] MEDS ORDERED: DEXTROSE 10% 250 ML IV ONE ×3 (10:30→12:18)
[2022-06-24 10:45] LABS: Basophils # (auto) 0 10 ^3/uL (0-0.2); Basophils % (auto) 0.5 % (0.0-2.0); Eosinophils # (auto) 0.3 10 ^3/uL (0-0.8); Hematocrit 27.9 % (41.0-53.0); Hemoglobin 9.3 g/dL (13.5-17.5); Lymphocytes # (auto) 1.2 10 ^3/uL (0.4-5.4); Lymphocytes % (auto) 11.9 % (10.0-50.0); Mean Corpuscular Hgb Conc. 33.2 g/dL (32.0-36.0); Mean Corpuscular Volume 84.4 fL (80.0-100.0); Monocytes # (auto) 0.5 10 ^3/uL (0-1.3); Monocytes % (auto) 5.2 % (0.0-12.0); Neutrophils # (auto) 7.8 10 ^3/uL (1.6-8.6); Neutrophils % (auto) 79.4 % (37.0-80.0); Red Blood Cells 3.31 10^6/uL (4.5-5.90); Red Cell Distribution Width 17.5 % (11.8-14.3); White Blood Cell 9.8 10^3/uL (4.4-10.8)
[2022-06-24] MEDS ORDERED: D5W/SOD CHLO 0.9% 1,000 ML IV ONE (10:45)
[2022-06-24] MEDS ORDERED: OCTREOTIDE ACETATE 100 MCG/ML VL SUBCUT ONE ×2 (10:45→11:45)
[2022-06-24 11:00] LABS: BUN/Creatinine Ratio 26.5 (10.0-20.0); Calcium 8.6 mg/dL (8.5-10.1); INR 1.19 (0.9-1.15); Magnesium 1.9 mg/dL (1.6-2.6); Partial Thromboplastin Time 28.9 sec (24.6-33.4); Potassium 4.2 mmol/L (3.5-5.1)
[2022-06-24 11:03] LABS: Bilirubin, Total 0.3 mg/dL (0.2-1.0)
[2022-06-24] MEDS ORDERED: HYDROCORTISONE SOD SUCC 100 MG/2ML INJ VIAL IV ONE (12:15)
[2022-06-24] MEDS ORDERED: DEXTROSE 10% 1,000 ML IV ONE (12:15)
[2022-06-24] MEDS ORDERED: DEXTROSE (50%) 50ML SYRG IV ONE (12:15)
[2022-06-24] MEDS ORDERED: methylPREDNISolone SOD SUCC 40 MG/ML VL IV ONE (13:00)
[2022-06-24] MEDS: OCTREOTIDE ACETATE 500 MCG in SODIUM CHL 0.9% 99 ML IV SCH ×2 (13:57→22:15)
[2022-06-24] MEDS ORDERED: ONDANSETRON HCL 4 MG/2 ML VIAL ONE (14:03)
[2022-06-24] MEDS ORDERED: ONDANSETRON HCL 4 MG/2 ML VIAL IV ONE (14:15)
[2022-06-24] MEDS ORDERED: MORPHINE SULFATE INJ 2 MG/ml SYRG IV PRN (16:45)
[2022-06-24] MEDS ORDERED: ONDANSETRON HCL 4 MG/2 ML VIAL IV PRN (16:45)
[2022-06-24] MEDS ORDERED: DEXTROSE (50%) 50ML SYRG IV PRN (16:45)
[2022-06-24] MEDS ORDERED: DOCUSATE SOD 100 MG CAP PO PRN (16:45)
[2022-06-24] MEDS ORDERED: ASPI1TAB20 PO (17:01)
[2022-06-24] MEDS ORDERED: GLIM-5 PO (17:01)
[2022-06-24] MEDS: FUROSEMIDE 40 MG/4 ML VIAL IV SCH (18:15)
[2022-06-24] MEDS: ACCU-CHEK COMFORT CURVE STRIP VI SCH ×2 (20:48→23:48)
[2022-06-24] MEDS: FERROUS SULFATE 325mg EC TAB PO SCH (20:58)
[2022-06-24] MEDS: ATORVASTATIN 20 MG TAB PO SCH (20:58)
[2022-06-24] MEDS: CARVEDILOL 3.125 MG TAB PO SCH (20:59)
[2022-06-24] MEDS: DORZOLAMIDE HCL 2% OPTH(EYE) SOL 10ML EACHEYE SCH (21:03)
[2022-06-24] MEDS: BRIMONIDINE 0.2% OPTH Soln 5ml EACHEYE SCH (21:03)
[2022-06-24] MEDS ORDERED: CYCLOPENTOLATE HCL 1% OPTH(EYE) SOL 2ML LEFTEYE SCH (22:00)
[2022-06-25] VITALS (48 sets, daily range): BP systolic 103–137; BP diastolic 43–63
[2022-06-25] MEDS: ACCU-CHEK COMFORT CURVE STRIP VI SCH ×5 (04:05→19:38)
[2022-06-25] MEDS: DORZOLAMIDE HCL 2% OPTH(EYE) SOL 10ML EACHEYE SCH ×3 (05:31→22:00)
[2022-06-25] MEDS: FUROSEMIDE 40 MG/4 ML VIAL IV SCH (05:31)
[2022-06-25] MEDS: BRIMONIDINE 0.2% OPTH Soln 5ml EACHEYE SCH ×3 (05:31→22:00)
[2022-06-25 05:54] LABS: Basophils # (auto) 0 10 ^3/uL (0-0.2); Eosinophils # (auto) 0 10 ^3/uL (0-0.8); Eosinophils % (auto) 0.1 % (0.0-7.0); Hemoglobin 8.2 g/dL (13.5-17.5); Lymphocytes # (auto) 1.2 10 ^3/uL (0.4-5.4); Mean Corpuscular Hemoglobin 28.7 pg (28.0-32.0); Monocytes # (auto) 0.7 10 ^3/uL (0-1.3); Nucleated Red Blood Cells % 0.1 %; Red Blood Cells 2.84 10^6/uL (4.5-5.90)
[2022-06-25 05:57] LABS: Basophils % (auto) 0.5 % (0.0-2.0); Hematocrit 23.8 % (41.0-53.0); Lymphocytes % (auto) 14.7 % (10.0-50.0); Mean Corpuscular Hgb Conc. 34.3 g/dL (32.0-36.0); Mean Corpuscular Volume 83.9 fL (80.0-100.0); Monocytes % (auto) 8.4 % (0.0-12.0); Neutrophils # (auto) 6.5 10 ^3/uL (1.6-8.6); Neutrophils % (auto) 76.3 % (37.0-80.0); Red Cell Distribution Width 16.6 % (11.8-14.3); White Blood Cell 8.5 10^3/uL (4.4-10.8)
[2022-06-25 06:11] LABS: Potassium 4.4 mmol/L (3.5-5.1)
[2022-06-25 06:19] LABS: Albumin 2.4 g/dL (3.4-5.0); BUN/Creatinine Ratio 25.2 (10.0-20.0); Bilirubin, Total 0.5 mg/dL (0.2-1.0); Calcium 8.3 mg/dL (8.5-10.1); Total Protein 6.2 g/dL (6.4-8.2)
[2022-06-25] MEDS: OCTREOTIDE ACETATE 500 MCG in SODIUM CHL 0.9% 99 ML IV SCH (07:45)
[2022-06-25] MEDS: FERROUS SULFATE 325mg EC TAB PO SCH ×2 (10:15→22:27)
[2022-06-25] MEDS: CLOPIDOGREL BISULFATE 75 MG TAB PO SCH (10:16)
[2022-06-25] MEDS: CARVEDILOL 3.125 MG TAB PO SCH (10:16)
[2022-06-25] MEDS: PANTOPRAZOLE 40 MG TAB PO SCH (10:16)
[2022-06-25] MEDS: ENOXAPARIN SOD 40 MG/0.4 ML SYRINGE SC SCH (10:17)
[2022-06-25] MEDS: ATORVASTATIN 20 MG TAB PO SCH (22:28)
[2022-06-26] VITALS (23 sets, daily range): BP systolic 109–148; BP diastolic 46–68
[2022-06-26] MEDS: ACCU-CHEK COMFORT CURVE STRIP VI SCH ×6 (00:07→19:54)
[2022-06-26] MEDS: DORZOLAMIDE HCL 2% OPTH(EYE) SOL 10ML EACHEYE SCH ×3 (06:00→21:31)
[2022-06-26] MEDS: BRIMONIDINE 0.2% OPTH Soln 5ml EACHEYE SCH ×3 (06:00→21:31)
[2022-06-26 06:09] LABS: BUN/Creatinine Ratio 27.5 (10.0-20.0); Calcium 8.3 mg/dL (8.5-10.1)
[2022-06-26] MEDS: ENOXAPARIN SOD 40 MG/0.4 ML SYRINGE SC SCH (08:05)
[2022-06-26] MEDS: PANTOPRAZOLE 40 MG TAB PO SCH (08:06)
[2022-06-26] MEDS: FERROUS SULFATE 325mg EC TAB PO SCH ×2 (08:06→21:28)
[2022-06-26] MEDS: FUROSEMIDE 40 MG/4 ML VIAL IV SCH (08:06)
[2022-06-26] MEDS: CLOPIDOGREL BISULFATE 75 MG TAB PO SCH (08:07)
[2022-06-26 11:33] LABS: Cholesterol 91 mg/dL (< 200)
[2022-06-26 11:36] LABS: HDL Cholesterol 32 mg/dL (40-59); LDL Cholesterol 46 mg/dL (< 100); Triglycerides 106 mg/dL (< 150)
[2022-06-26] MEDS: ATORVASTATIN 20 MG TAB PO SCH (21:28)
[2022-06-27] MEDS: ACCU-CHEK COMFORT CURVE STRIP VI SCH ×3 (04:00→08:00)
[2022-06-27 05:00] VITALS: BP 149/62
[2022-06-27] MEDS: BRIMONIDINE 0.2% OPTH Soln 5ml EACHEYE SCH (05:45)
[2022-06-27] MEDS: DORZOLAMIDE HCL 2% OPTH(EYE) SOL 10ML EACHEYE SCH (05:45)
[2022-06-27 06:38] LABS: Potassium 4.1 mmol/L (3.5-5.1)
[2022-06-27 06:52] LABS: BUN/Creatinine Ratio 29.5 (10.0-20.0); Calcium 8.7 mg/dL (8.5-10.1)
[2022-06-27 09:00] VITALS: BP 149/64
[2022-06-27] MEDS: FERROUS SULFATE 325mg EC TAB PO SCH (10:21)
[2022-06-27] MEDS: ENOXAPARIN SOD 40 MG/0.4 ML SYRINGE SC SCH (10:21)
[2022-06-27] MEDS: CLOPIDOGREL BISULFATE 75 MG TAB PO SCH (10:21)
[2022-06-27] MEDS: PANTOPRAZOLE 40 MG TAB PO SCH (10:21)
[2022-06-27] MEDS: FUROSEMIDE 40 MG/4 ML VIAL IV SCH (10:22)
[2022-06-27 11:20] VITALS: BP 149/64
== END 2022-06-27 12:07 | disposition home or self-care (01) | DRG 637 ==
LOC: EDBD 10:12 → ER 10:12 → ICU CENTRL 16:47 → DOU IN ICU 20:20 → TELE-CENTR 06-26 16:44
PROVIDERS: ADMIT Nurse Practitioner Family; ATTEND Family Medicine
PROC: 5A09357 Assistance with Respiratory Ventilation, Less than 24 Consecutive Hours, Continuous Positive Airway Pressure (ICD-10-PCS; principal; 2022-06-25)
DX: E11.649 Type 2 diabetes mellitus with hypoglycemia without coma (principal); G93.41 Metabolic encephalopathy; J96.00 Acute respiratory failure, unspecified whether with hypoxia or hypercapnia; I50.41 Acute combined systolic (congestive) and diastolic (congestive) heart failure; I13.0 Hypertensive heart and chronic kidney disease with heart failure and stage 1 through stage 4 chronic kidney disease, or unspecified chronic kidney disease; N17.9 Acute kidney failure, unspecified; D63.8 Anemia in other chronic diseases classified elsewhere; E11.22 Type 2 diabetes mellitus with diabetic chronic kidney disease; H54.8 Legal blindness, as defined in USA; E11.65 Type 2 diabetes mellitus with hyperglycemia; E78.00 Pure hypercholesterolemia, unspecified; E11.39 Type 2 diabetes mellitus with other diabetic ophthalmic complication; I25.10 Atherosclerotic heart disease of native coronary artery without angina pectoris; N18.32 Chronic kidney disease, stage 3b; Z90.49 Acquired absence of other specified parts of digestive tract; Z82.49 Family history of ischemic heart disease and other diseases of the circulatory system; Z99.2 Dependence on renal dialysis; Z95.1 Presence of aortocoronary bypass graft; Z86.74 Personal history of sudden cardiac arrest; Z83.3 Family history of diabetes mellitus; Z79.82 Long term (current) use of aspirin; Z79.02 Long term (current) use of antithrombotics/antiplatelets; I25.2 Old myocardial infarction; T38.3X5A Adverse effect of insulin and oral hypoglycemic [antidiabetic] drugs, initial encounter; Z79.84 Long term (current) use of oral hypoglycemic drugs
CPT/HCPCS: 36415; 71045; 80048; 80053; 80061; 82962; 83036; 83605; 83735; 83880; 84484; 85025; 85610; 85730; 87040; 87081; 93005; 96361; 96372; 96374; 96375; G0378; J2405

== ENCOUNTER → 2023-01-15 | Outpatient (CLI) | payer OTHER, MEDICAID ==
[~2023-01-15] MED LIST changes: +ASPI1TAB20 PO; +GLIM-38 PO; -LATA0.0019 OP/OT; +LATA0.008 OP/OT; +LEVO250T58 PO; -LEVO250T69 PO
[2023-01-15 08:47] LABS: Basophils # (auto) 0.1 10 ^3/uL (0-0.2); Basophils % (auto) 1.8 % (0.0-2.0); Eosinophils # (auto) 0.3 10 ^3/uL (0-0.8); Eosinophils % (auto) 4.1 % (0.0-7.0); Hematocrit 31.1 % (41.0-53.0); Lymphocytes % (auto) 26.6 % (10.0-50.0); Mean Corpuscular Hemoglobin 27.6 pg (28.0-32.0); Mean Corpuscular Hgb Conc. 32.2 g/dL (32.0-36.0); Mean Corpuscular Volume 85.8 fL (80.0-100.0); Monocytes # (auto) 0.6 10 ^3/uL (0-1.3); Monocytes % (auto) 7.3 % (0.0-12.0); Neutrophils # (auto) 4.6 10 ^3/uL (1.6-8.6); Neutrophils % (auto) 60.2 % (37.0-80.0); Nucleated Red Blood Cells % 0.1 %; Red Blood Cells 3.62 10^6/uL (4.5-5.90); White Blood Cell 7.7 10^3/uL (4.4-10.8)
[2023-01-15 09:12] LABS: Potassium 5.2 mmol/L (3.5-5.1)
[2023-01-15 09:13] LABS: Calcium 8.9 mg/dL (8.7-10.4)
[2023-01-15 09:18] LABS: BUN/Creatinine Ratio 24.8 (10.0-20.0)
[2023-01-15 09:20] LABS: Phosphorus 4.9 mg/dL (2.4-5.1)
[2023-01-15 09:27] LABS: Urine Bacteria NONE SEEN /hpf (None Seen); Urine Blood 3+ /uL (Negative); Urine Clarity Clear (Clear); Urine Color Colorless (Yellow); Urine Protein, UAD 2+ (Negative); Urine Specific Gravity 1.014 (1.001-1.035); Urine Urobilinogen Normal (Negative); Urine WBC 9 /hpf (0 - 3); Urine pH 6.5 (5.0-8.0)
[2023-01-15 09:31] LABS: Protein, Urine 194.1 mg/dL (0.0-11.9)
[2023-01-15 09:34] LABS: Urine Protein/Creatinine Ratio 2.77
== END | disposition home or self-care (01) ==
LOC: LAB 08:23
PROVIDERS: ATTEND Internal Medicine Nephrology
DX: N18.30 Chronic kidney disease, stage 3 unspecified (principal); D63.1 Anemia in chronic kidney disease; N39.0 Urinary tract infection, site not specified; R80.9 Proteinuria, unspecified; M10.9 Gout, unspecified; E21.3 Hyperparathyroidism, unspecified; E55.9 Vitamin D deficiency, unspecified; E11.21 Type 2 diabetes mellitus with diabetic nephropathy
CPT/HCPCS: 36415; 80069; 81001; 82570; 83036; 83970; 84156; 84550; 85025

== ENCOUNTER 2023-02-28 09:37 | Inpatient (IN) | payer OTHER, MEDICAID ==
[~2023-02-28] VITALS: Ht 172.7 cm; Wt 88.7 kg
[~2023-02-28 09:37] MED LIST changes: +LATA0.008 OP; -LATA0.008 OP/OT
[2023-02-28 10:00] VITALS: PULSE 70; RESP 20; O2SAT 92
[2023-02-28] MEDS ORDERED: SODIUM CHLORIDE 0.9% 1,000 ML IV ONE (10:45)
[2023-02-28 11:02] LABS: Basophils # (auto) 0 10 ^3/uL (0-0.2); Basophils % (auto) 0.2 % (0.0-2.0); Eosinophils # (auto) 0 10 ^3/uL (0-0.8); Hematocrit 27.9 % (41.0-53.0); Lymphocytes # (auto) 0.4 10 ^3/uL (0.4-5.4); Lymphocytes % (auto) 9.6 % (10.0-50.0); Mean Corpuscular Hemoglobin 27.3 pg (28.0-32.0); Mean Corpuscular Hgb Conc. 32.3 g/dL (32.0-36.0); Mean Corpuscular Volume 84.5 fL (80.0-100.0); Monocytes # (auto) 0.3 10 ^3/uL (0-1.3); Monocytes % (auto) 6.2 % (0.0-12.0); Neutrophils # (auto) 3.9 10 ^3/uL (1.6-8.6); Nucleated Red Blood Cells % 0.1 %; Red Blood Cells 3.31 10^6/uL (4.5-5.90); Red Cell Distribution Width 13.9 % (11.8-14.3); White Blood Cell 4.7 10^3/uL (4.4-10.8)
[2023-02-28 11:10] LABS: Alanine Aminotransferase 47 U/L (7-40); Albumin 3.6 g/dL (3.2-4.8); Alkaline Phosphatase 55 U/L (46-116); Anion Gap 16 (5-15); Aspartate Aminotransferase 193 U/L (13-40); Bilirubin, Total 0.4 mg/dL (0.2-1.0); Calcium 7.8 mg/dL (8.5-10.1); Carbon Dioxide 15 mmol/L (20-30); Chloride 102 mmol/L (98-107); Glucose 122 mg/dL (74-106); Sodium 133 mmol/L (136-145); Total Protein 6.1 g/dL (5.7-8.2)
[2023-02-28 11:21] LABS: Blood Urea Nitrogen 125 mg/dL (9-23); Potassium 5.7 mmol/L (3.5-5.1)
[2023-02-28] MEDS ORDERED: SODIUM BICARBONATE 8.4 % INJ 50ML VIAL IV ONE (11:45)
[2023-02-28] MEDS ORDERED: CALCIUM GLUC 1,000mg/50ml-NS 50 ML IV ONE (11:45)
[2023-02-28 12:08] LABS: COVID19 ANTIGEN SOFIA FIA NEGATIVE (NEGATIVE)
[2023-02-28 12:09] LABS: Rapid Influenza B Negative (Negative)
[2023-02-28 12:12] LABS: Rapid Influenza A Positive (Negative)
[2023-02-28] MEDS ORDERED: cefTRIAXone 1GM/50ML D5W 50 ML IV ONE (12:15)
[2023-02-28 12:43] LABS: Urine Bacteria NONE SEEN /hpf (None Seen); Urine Blood TRACE /uL (Negative); Urine Clarity HAZY (Clear); Urine Color Yellow (Yellow); Urine Hyaline Cast FEW /lpf (0 - 2); Urine Protein, UAD 2+ (Negative); Urine Specific Gravity 1.016 (1.001-1.035); Urine Urobilinogen Normal (Negative); Urine WBC <1 /hpf (0 - 3)
[2023-02-28] MEDS ORDERED: CLOPIDOGREL 300 MG TAB PO ONE (15:15)
[2023-02-28] MEDS ORDERED: ASPirin 81 mg TAB PO ONE (15:15)
[2023-02-28] MEDS ORDERED: HEPARIN DRIP/D5W 100UNITS/ML 250 ML IV SCH ×3 (15:15→23:45)
[2023-02-28] MEDS ORDERED: HEPARIN SODIUM (PORCINE) 5000 UNITS/ML 1ML VIAL IV ONE (15:15)
[2023-02-28 15:57] LABS: Basophils # (auto) 0 10 ^3/uL (0-0.2); Eosinophils # (auto) 0 10 ^3/uL (0-0.8); Lymphocytes # (auto) 0.5 10 ^3/uL (0.4-5.4); Mean Corpuscular Hemoglobin 27.2 pg (28.0-32.0); Monocytes # (auto) 0.3 10 ^3/uL (0-1.3); Neutrophils # (auto) 3.9 10 ^3/uL (1.6-8.6); Nucleated Red Blood Cells % 0.1 %
[2023-02-28] MEDS ORDERED: InsuLIN REG 1unit/0.01ml Soln (100units/ml) IV ONE (16:00)
[2023-02-28] MEDS ORDERED: SODIUM BICARBONATE 8.4% INJ 50ML SYRINGE IV ONE (16:00)
[2023-02-28] MEDS ORDERED: ALBUTEROL SULF 2.5 MG/0.5ML(0.5%) NEB SOLN NEB ONE (16:00)
[2023-02-28] MEDS ORDERED: DEXTROSE (50%) 50ML SYRG IV ONE (16:00)
[2023-02-28] MEDS ORDERED: FUROSEMIDE 20 MG/2 ML VIAL IV ONE (16:00)
[2023-02-28 16:13] LABS: Basophils % (auto) 0.2 % (0.0-2.0); Hematocrit 28.3 % (41.0-53.0); Hemoglobin 9.2 g/dL (13.5-17.5); Lymphocytes % (auto) 11.1 % (10.0-50.0); Mean Corpuscular Hgb Conc. 32.6 g/dL (32.0-36.0); Mean Corpuscular Volume 83.7 fL (80.0-100.0); Monocytes % (auto) 6.5 % (0.0-12.0); Neutrophils % (auto) 82.2 % (37.0-80.0); Red Blood Cells 3.39 10^6/uL (4.5-5.90); Red Cell Distribution Width 13.3 % (11.8-14.3); White Blood Cell 4.8 10^3/uL (4.4-10.8)
[2023-02-28 16:14] LABS: Triglycerides 201 mg/dL (< 150)
[2023-02-28 16:14] LABS: INR 1.11 (0.9-1.15); Partial Thromboplastin Time 34.5 SEC (24.5-34.5); Prothrombin Time 11.6 sec (9.3-11.8)
[2023-02-28 16:15] LABS: LDL Cholesterol 26 mg/dL (< 100)
[2023-02-28 16:16] LABS: Cholesterol 88 mg/dL (< 200); HDL Cholesterol 25 mg/dL (40-59)
[2023-02-28] MEDS: PANTOPRAZOLE 40 MG/10 ML VIAL INJ IV SCH (17:34)
[2023-02-28] MEDS: FUROSEMIDE 40 MG TAB PO SCH (18:40)
[2023-02-28] MEDS ORDERED: MORPHINE SULFATE 4 MG/ML SYR/VIAL IV PRN (18:45)
[2023-02-28] MEDS ORDERED: ONDANSETRON HCL 4 MG/2 ML VIAL IV PRN (18:45)
[2023-02-28] MEDS ORDERED: ACETAMINOPHEN 325 MG TAB PO PRN (18:45)
[2023-02-28] MEDS ORDERED: DEXTROSE (50%) 50ML SYRG IV PRN (18:45)
[2023-02-28] MEDS ORDERED: NITROGLYCERIN 0.4 MG SL TAB SL PRN (18:45)
[2023-02-28 19:45] VITALS: PULSE 71; RESP 24; O2SAT 95
[2023-02-28] MEDS: NEOMYCIN-POLYM-HC 1% OTIC(EAR) SOLN 10ML LEFT EAR SCH ×2 (19:47→23:49)
[2023-02-28 19:53] LABS: Potassium 4.2 mmol/L (3.5-5.1)
[2023-02-28 20:00] LABS: Magnesium 1.9 mg/dL (1.6-2.6)
[2023-02-28] MEDS: CYCLOPENTOLATE HCL 1% OPTH(EYE) SOL 2ML LEFTEYE SCH (21:39)
[2023-02-28] MEDS: LATANOPROST 0.005 % OPTH(EYE) SOL 2.5ML LEFTEYE SCH (21:52)
[2023-02-28] MEDS: ACCU-CHEK COMFORT CURVE STRIP VI SCH (21:54)
[2023-02-28] MEDS: InsuLIN REG 1unit/0.01ml Soln (100units/ml) SC SCH (21:54)
[2023-02-28] MEDS: CLOTRIMAZOLE 1 % CREAM 15GM TOP SCH (21:59)
[2023-02-28] MEDS ORDERED: DORZOLAMIDE HCL 2% OPTH(EYE) SOL 10ML EACHEYE SCH (22:00)
[2023-02-28] MEDS ORDERED: ATORVASTATIN 20 MG TAB PO SCH (22:00)
[2023-02-28] MEDS ORDERED: BRIMONIDINE 0.2% OPTH Soln 5ml EACHEYE SCH (22:00)
[2023-02-28] MEDS: CARVEDILOL 12.5 MG TAB PO SCH (22:00)
[2023-02-28] MEDS: FERROUS SULFATE 325mg EC TAB PO SCH (22:26)
[2023-02-28] MEDS: TIMOLOL MAL 0.5% OPTH(EYE) SOL 5ML OP SCH (22:26)
[2023-02-28 22:33] LABS: INR 1.16 (0.9-1.15); Prothrombin Time 12.1 sec (9.3-11.8)
[2023-02-28 22:36] LABS: Partial Thromboplastin Time 113.4 SEC (24.5-34.5)
[2023-03-01 06:06] LABS: Basophils # (auto) 0 10 ^3/uL (0-0.2); Basophils % (auto) 0.3 % (0.0-2.0); Eosinophils # (auto) 0 10 ^3/uL (0-0.8); Hematocrit 27.3 % (41.0-53.0); Lymphocytes # (auto) 0.4 10 ^3/uL (0.4-5.4); Lymphocytes % (auto) 7.2 % (10.0-50.0); Mean Corpuscular Hgb Conc. 32.9 g/dL (32.0-36.0); Mean Corpuscular Volume 82.1 fL (80.0-100.0); Monocytes # (auto) 0.2 10 ^3/uL (0-1.3); Monocytes % (auto) 3.8 % (0.0-12.0); Neutrophils % (auto) 88.7 % (37.0-80.0); Nucleated Red Blood Cells % 0.1 %; Red Blood Cells 3.33 10^6/uL (4.5-5.90); Red Cell Distribution Width 13.4 % (11.8-14.3); White Blood Cell 5.6 10^3/uL (4.4-10.8)
[2023-03-01 06:10] LABS: INR 1.16 (0.9-1.15); Partial Thromboplastin Time 66.2 SEC (24.5-34.5); Prothrombin Time 12.1 sec (9.3-11.8)
[2023-03-01 06:20] LABS: Alanine Aminotransferase 44 U/L (7-40); Albumin 3.3 g/dL (3.2-4.8); Alkaline Phosphatase 51 U/L (46-116); Anion Gap 17 (5-15); Aspartate Aminotransferase 166 U/L (13-40); Carbon Dioxide 13 mmol/L (20-30); Chloride 105 mmol/L (98-107); Glucose 155 mg/dL (74-106); Potassium 4.6 mmol/L (3.5-5.1); Sodium 135 mmol/L (136-145)
[2023-03-01 06:21] LABS: Bilirubin, Total 0.3 mg/dL (0.2-1.0); Total Protein 5.6 g/dL (5.7-8.2)
[2023-03-01 06:25] LABS: Blood Urea Nitrogen 133 mg/dL (9-23)
[2023-03-01] MEDS: DORZOLAMIDE HCL 2% OPTH(EYE) SOL 10ML RIGHTEYE SCH ×3 (06:28→22:25)
[2023-03-01] MEDS: EMPAGLIFLOZIN 10 MG TAB PO SCH (07:00)
[2023-03-01] MEDS: InsuLIN REG 1unit/0.01ml Soln (100units/ml) SC SCH ×4 (07:00→22:00)
[2023-03-01] MEDS: BRIMONIDINE 0.2% OPTH Soln 5ml RIGHTEYE SCH ×3 (07:06→22:26)
[2023-03-01] MEDS: NEOMYCIN-POLYM-HC 1% OTIC(EAR) SOLN 10ML LEFT EAR SCH ×3 (07:08→18:00)
[2023-03-01] MEDS: ACCU-CHEK COMFORT CURVE STRIP VI SCH ×4 (07:09→22:00)
[2023-03-01] MEDS: FUROSEMIDE 40 MG TAB PO SCH (07:35)
[2023-03-01 08:00] VITALS: PULSE 73; RESP 32; O2SAT 90
[2023-03-01] MEDS: CLOTRIMAZOLE 1 % CREAM 15GM TOP SCH ×2 (10:00→22:00)
[2023-03-01] MEDS: CYCLOPENTOLATE HCL 1% OPTH(EYE) SOL 2ML LEFTEYE SCH ×2 (10:00→22:00)
[2023-03-01] MEDS: prednisoLONE ACETATE 1% OPTH SUSP 5ML LEFTEYE SCH (10:00)
[2023-03-01] MEDS: ASPirin 81 mg TAB PO SCH (10:03)
[2023-03-01] MEDS: PANTOPRAZOLE 40 MG/10 ML VIAL INJ IV SCH (10:04)
[2023-03-01] MEDS: cefTRIAXone 1GM/50ML D5W 50 ML IV SCH (10:04)
[2023-03-01] MEDS: BUMETANIDE 2.5mg/10ml (0.25 mg/ml) INJ IV SCH ×2 (10:04→18:00)
[2023-03-01] MEDS: OSELTAMIVIR 30 MG CAP PO SCH (10:05)
[2023-03-01] MEDS: FERROUS SULFATE 325mg EC TAB PO SCH ×2 (10:05→22:49)
[2023-03-01] MEDS: CARVEDILOL 12.5 MG TAB PO SCH ×2 (10:05→22:00)
[2023-03-01] MEDS: DOCUSATE SOD 100 MG CAP PO SCH (10:05)
[2023-03-01] MEDS: CLOPIDOGREL BISULFATE 75 MG TAB PO SCH (10:05)
[2023-03-01] MEDS: AZITHROMYCIN 500MG/ 250ML 250 ML IV SCH (10:06)
[2023-03-01] MEDS: TIMOLOL MAL 0.5% OPTH(EYE) SOL 5ML OP SCH ×2 (10:08→22:50)
[2023-03-01 12:04] LABS: INR 1.18 (0.9-1.15); Partial Thromboplastin Time 67.8 SEC (24.5-34.5); Prothrombin Time 12.3 sec (9.3-11.8)
[2023-03-01] MEDS ORDERED: SODIUM CHLORIDE 0.9% 1,000 ML IV SCH (12:15)
[2023-03-01] MEDS ORDERED: SODIUM CHLORIDE 0.9% 1,000 ML IV ONE (12:15)
[2023-03-01] MEDS ORDERED: ALBUMIN 25% 100 ML IV ONE (14:00)
[2023-03-01] MEDS ORDERED: MORPHINE SULFATE INJ 2 MG/ml SYRG IV ONE (16:00)
[2023-03-01] MEDS ORDERED: ONDANSETRON HCL 4 MG/2 ML VIAL IV ONE (16:00)
[2023-03-01] MEDS ORDERED: HEPARIN DRIP/D5W 100UNITS/ML 250 ML IV SCH (19:15)
[2023-03-01 20:00] VITALS: PULSE 70; RESP 26; O2SAT 90
[2023-03-01] MEDS: LATANOPROST 0.005 % OPTH(EYE) SOL 2.5ML LEFTEYE SCH (22:00)
[2023-03-02] VITALS (46 sets, daily range): BP systolic 45–185; BP diastolic 23–81; PULSE 41–102; RESP 13–43; TEMP 96.3–97.8; O2SAT 62–100
[2023-03-02] MEDS: NEOMYCIN-POLYM-HC 1% OTIC(EAR) SOLN 10ML LEFT EAR SCH ×5 (00:40→23:32)
[2023-03-02 01:31] LABS: INR 1.21 (0.9-1.15); Partial Thromboplastin Time 68.2 SEC (24.5-34.5); Prothrombin Time 12.5 sec (9.3-11.8)
[2023-03-02] MEDS: DORZOLAMIDE HCL 2% OPTH(EYE) SOL 10ML RIGHTEYE SCH ×3 (06:28→22:00)
[2023-03-02] MEDS: BUMETANIDE 2.5mg/10ml (0.25 mg/ml) INJ IV SCH ×2 (06:32→18:35)
[2023-03-02] MEDS: BRIMONIDINE 0.2% OPTH Soln 5ml RIGHTEYE SCH ×3 (06:33→22:00)
[2023-03-02] MEDS: ACCU-CHEK COMFORT CURVE STRIP VI SCH ×4 (06:58→22:00)
[2023-03-02] MEDS: InsuLIN REG 1unit/0.01ml Soln (100units/ml) SC SCH ×4 (06:58→22:00)
[2023-03-02] MEDS: EMPAGLIFLOZIN 10 MG TAB PO SCH (06:59)
[2023-03-02 07:45] LABS: INR 1.23 (0.9-1.15); Prothrombin Time 12.7 sec (9.3-11.8)
[2023-03-02 08:59] LABS: Alanine Aminotransferase 52 U/L (7-40); Albumin 3.4 g/dL (3.2-4.8); Alkaline Phosphatase 50 U/L (46-116); Anion Gap 16 (5-15); Aspartate Aminotransferase 123 U/L (13-40); BUN/Creatinine Ratio 17.1 (10.0-20.0); Bilirubin, Total 0.3 mg/dL (0.2-1.0); Calcium 7.6 mg/dL (8.5-10.1); Carbon Dioxide 15 mmol/L (20-30); Chloride 104 mmol/L (98-107); Glucose 102 mg/dL (74-106); Potassium 4.7 mmol/L (3.5-5.1); Sodium 135 mmol/L (136-145); Total Protein 5.7 g/dL (5.7-8.2)
[2023-03-02 09:07] LABS: Blood Urea Nitrogen 87 mg/dL (9-23)
[2023-03-02] MEDS: PANTOPRAZOLE 40 MG/10 ML VIAL INJ IV SCH (09:19)
[2023-03-02] MEDS: ASPirin 81 mg TAB PO SCH (09:20)
[2023-03-02] MEDS: AZITHROMYCIN 500MG/ 250ML 250 ML IV SCH (09:20)
[2023-03-02] MEDS: FERROUS SULFATE 325mg EC TAB PO SCH ×2 (09:20→22:00)
[2023-03-02] MEDS: DOCUSATE SOD 100 MG CAP PO SCH (09:20)
[2023-03-02] MEDS: CLOPIDOGREL BISULFATE 75 MG TAB PO SCH (09:20)
[2023-03-02] MEDS: OSELTAMIVIR 30 MG CAP PO SCH (09:20)
[2023-03-02] MEDS: CARVEDILOL 12.5 MG TAB PO SCH ×2 (09:20→22:00)
[2023-03-02] MEDS: cefTRIAXone 1GM/50ML D5W 50 ML IV SCH (09:21)
[2023-03-02] MEDS: TIMOLOL MAL 0.5% OPTH(EYE) SOL 5ML OP SCH ×2 (09:23→22:00)
[2023-03-02] MEDS: prednisoLONE ACETATE 1% OPTH SUSP 5ML LEFTEYE SCH (09:26)
[2023-03-02 09:34] LABS: Basophils # (auto) 0 10 ^3/uL (0-0.2); Eosinophils # (auto) 0 10 ^3/uL (0-0.8); Hemoglobin 8.4 g/dL (13.5-17.5); Lymphocytes # (auto) 0.5 10 ^3/uL (0.4-5.4); Mean Corpuscular Hemoglobin 27.5 pg (28.0-32.0); Monocytes # (auto) 0.2 10 ^3/uL (0-1.3); Red Cell Distribution Width 13.7 % (11.8-14.3)
[2023-03-02 09:35] LABS: Basophils % (auto) 0.2 % (0.0-2.0); Hematocrit 25.5 % (41.0-53.0); Mean Corpuscular Hgb Conc. 32.8 g/dL (32.0-36.0); Mean Corpuscular Volume 83.8 fL (80.0-100.0); Monocytes % (auto) 3.4 % (0.0-12.0); Neutrophils # (auto) 4.5 10 ^3/uL (1.6-8.6); Neutrophils % (auto) 87.4 % (37.0-80.0); Nucleated Red Blood Cells % 0.1 %; Red Blood Cells 3.05 10^6/uL (4.5-5.90); White Blood Cell 5.1 10^3/uL (4.4-10.8)
[2023-03-02] MEDS: CYCLOPENTOLATE HCL 1% OPTH(EYE) SOL 2ML LEFTEYE SCH ×2 (10:00→22:00)
[2023-03-02] MEDS: CLOTRIMAZOLE 1 % CREAM 15GM TOP SCH ×2 (13:30→22:00)
[2023-03-02 13:53] LABS: INR 1.24 (0.9-1.15); Prothrombin Time 12.8 sec (9.3-11.8)
[2023-03-02] MEDS ORDERED: LIDOCAINE 2%HCL (LOCAL ANESTH.) INJ 20ML MDV ONE (14:26)
[2023-03-02] MEDS ORDERED: IODIXANOL 320MG/ML 100ML BTL IV ONE ×2 (14:26→16:35)
[2023-03-02] MEDS ORDERED: ANGIOMAX 250 MG VIAL IV ONE (15:05)
[2023-03-02] MEDS ORDERED: HEPARIN SODIUM (PORCINE) 5000 UNITS/ML 1ML VIAL ONE (15:05)
[2023-03-02] MEDS ORDERED: fentaNYL CITRATE 100 MCG/2 ML VL ONE (15:05)
[2023-03-02] MEDS ORDERED: VERAPAMIL 2.5MG/ML INJ 2ML VIAL IV ONE (15:05)
[2023-03-02] MEDS ORDERED: SODIUM CHL 0.9% 50 ML ONE (15:06)
[2023-03-02] MEDS ORDERED: MIDAZOLAM HCL 2MG/2ML 2ml VIAL (1mg/ml) ONE (15:06)
[2023-03-02] MEDS ORDERED: EPINEPHrine HCL 1 MG/10 ML SYRG ONE (16:26)
[2023-03-02] MEDS ORDERED: ATROPINE SULF 1 MG/10ml SYR ONE (16:26)
[2023-03-02] MEDS ORDERED: DOBUTamine 1000MCG/ML 250 ML IV ONE (16:36)
[2023-03-02] MEDS: DOBUTamine 1000MCG/ML 250 ML IV SCH (17:00)
[2023-03-02 18:52] LABS: Base Excess -11.5 mmol/L (-2.0-2.0)
[2023-03-02] MEDS ORDERED: BUMETANIDE 2.5mg/10ml (0.25 mg/ml) INJ IV ONE (19:45)
[2023-03-02] MEDS ORDERED: SODIUM BICARBONATE 8.4 % INJ 50ML VIAL IV ONE ×2 (19:45→23:30)
[2023-03-02] MEDS ORDERED: IPRATROPIUM BROM 0.5 MG/2.5ML INH SOL NEB ONE (20:00)
[2023-03-02] MEDS ORDERED: LORazepam 2MG/ML-1ML VIAL IV ONE (20:00)
[2023-03-02] MEDS ORDERED: IPRATROPIUM BROM 0.5 MG/2.5ML INH SOL NEB PRN (20:00)
[2023-03-02] MEDS ORDERED: ETOMIDATE (2MG/ML) 20ML VIAL IV ONE (20:26)
[2023-03-02] MEDS ORDERED: ROCURONIUM 10MG/ML 10ML VIAL IV ONE ×3 (20:27→23:45)
[2023-03-02] MEDS ORDERED: PROPOFOL 100 ML IV ONE (20:44)
[2023-03-02] MEDS: VASOPRESSIN 20 UNITS in SODIUM CHL 0.9% 99 ML IV SCH (21:15)
[2023-03-02] MEDS: FUROSEMIDE INJECTION 100 MG in D5W 5% 100 ML IV SCH (21:15)
[2023-03-02] MEDS ORDERED: PHENYLEPHRINE IV 250 ML IV SCH (21:15)
[2023-03-02] MEDS ORDERED: NOREPINEPHRINE 8 MG/250ML KIT 250 ML IV SCH (21:15)
[2023-03-02] MEDS: PHENYLEPHRINE INJ 80 MG in SODIUM CHL 0.9% 242 ML IV SCH (21:30)
[2023-03-02] MEDS ORDERED: DOPamine 1600MCG/ML D5W 250 ML IV ONE (21:32)
[2023-03-02] MEDS: MIDAZOLAM DRIP 50 mg/50mL 50 ML IV SCH (22:00)
[2023-03-02] MEDS: LATANOPROST 0.005 % OPTH(EYE) SOL 2.5ML LEFTEYE SCH (22:00)
[2023-03-02] MEDS: fentaNYL Drip 2500mCg/250mlNS 250 ML IV SCH (22:00)
[2023-03-02] MEDS ORDERED: MIDAZOLAM DRIP 50 mg/50mL 50 ML IV ONE (22:01)
[2023-03-02] MEDS: NOREPINEPHRINE BITARTRATE 32 MG in SODIUM CHL 0.9% 218 ML IV SCH (22:11)
[2023-03-02 22:14] LABS: Basophils # (auto) 0 10 ^3/uL (0-0.2); Basophils % (auto) 0.6 % (0.0-2.0); Eosinophils # (auto) 0 10 ^3/uL (0-0.8); Eosinophils % (auto) 0.3 % (0.0-7.0); Hematocrit 28.7 % (41.0-53.0); Hemoglobin 9.3 g/dL (13.5-17.5); Lymphocytes % (auto) 29.9 % (10.0-50.0); Mean Corpuscular Hemoglobin 27.6 pg (28.0-32.0); Mean Corpuscular Hgb Conc. 32.5 g/dL (32.0-36.0); Mean Corpuscular Volume 84.9 fL (80.0-100.0); Monocytes # (auto) 0.2 10 ^3/uL (0-1.3); Monocytes % (auto) 6.4 % (0.0-12.0); Neutrophils # (auto) 2.1 10 ^3/uL (1.6-8.6); Neutrophils % (auto) 62.8 % (37.0-80.0); Nucleated Red Blood Cells % 0.8 %; Red Blood Cells 3.39 10^6/uL (4.5-5.90); White Blood Cell 3.3 10^3/uL (4.4-10.8)
[2023-03-02 22:22] LABS: Alanine Aminotransferase 50 U/L (7-40); Alkaline Phosphatase 80 U/L (46-116); Anion Gap 21 (5-15); Aspartate Aminotransferase 123 U/L (13-40); BUN/Creatinine Ratio 20.5 (10.0-20.0); Calcium 7.2 mg/dL (8.7-10.4); Carbon Dioxide 14 mmol/L (20-30); Chloride 102 mmol/L (98-107); Glucose 183 mg/dL (74-106); Magnesium 2.4 mg/dL (1.6-2.6); Phosphorus 10.3 mg/dL (2.4-5.1); Potassium 4.2 mmol/L (3.5-5.1); Sodium 137 mmol/L (136-145)
[2023-03-02 22:23] LABS: Bilirubin, Total 0.3 mg/dL (0.2-1.0); Total Protein 5.5 g/dL (5.7-8.2)
[2023-03-02] MEDS ORDERED: SODIUM BICARBONATE 8.4% INJ 50ML SYRINGE ONE ×2 (22:26→23:43)
[2023-03-02] MEDS ORDERED: ROCURONIUM BROMIDE 1,000 MG in D5W 5% 150 ML IV SCH (22:45)
[2023-03-02 22:53] LABS: Blood Urea Nitrogen 109 mg/dL (9-23)
[2023-03-02] MEDS ORDERED: ATRACURIUM BESYLATE 1,000 MG in D5W 5% 150 ML IV SCH (23:15)
[2023-03-02] MEDS: ATRACURIUM BESYLATE 1,000 MG in D5W 5% 150 ML IV SCH (23:30)
[2023-03-02] MEDS: SODIUM BICARBONATE 50ML VIAL 150 ML in SOD CHL 0.45% 1,000 ML IV SCH (23:30)
[2023-03-02 23:41] LABS: Base Excess -15.4 mmol/L (-2.0-2.0)
[2023-03-02 23:54] LABS: Base Excess -8.3 mmol/L (-2.0-2.0)
[2023-03-03] VITALS (106 sets, daily range): BP systolic 89–183; BP diastolic 38–102; PULSE 62–114; RESP 0–65; TEMP 96.7–99.1; O2SAT 81–100
[2023-03-03] MEDS ORDERED: LEVALBUTEROL HCL 1.25 MG/3 ML NEB NEB SCH (02:00)
[2023-03-03 02:32] LABS: Basophils # (auto) 0 10 ^3/uL (0-0.2); Basophils % (auto) 0.2 % (0.0-2.0); Eosinophils # (auto) 0 10 ^3/uL (0-0.8); Eosinophils % (auto) 0.1 % (0.0-7.0); Hematocrit 26.7 % (41.0-53.0); Hemoglobin 8.9 g/dL (13.5-17.5); Lymphocytes # (auto) 0.2 10 ^3/uL (0.4-5.4); Lymphocytes % (auto) 4.4 % (10.0-50.0); Mean Corpuscular Hemoglobin 27.4 pg (28.0-32.0); Mean Corpuscular Hgb Conc. 33.5 g/dL (32.0-36.0); Mean Corpuscular Volume 81.8 fL (80.0-100.0); Monocytes # (auto) 0.2 10 ^3/uL (0-1.3); Monocytes % (auto) 4.4 % (0.0-12.0); Neutrophils # (auto) 4.3 10 ^3/uL (1.6-8.6); Neutrophils % (auto) 90.9 % (37.0-80.0); Nucleated Red Blood Cells % 0.2 %; Red Blood Cells 3.26 10^6/uL (4.5-5.90); Red Cell Distribution Width 13.6 % (11.8-14.3); White Blood Cell 4.7 10^3/uL (4.4-10.8)
[2023-03-03 02:41] LABS: Chloride 101 mmol/L (98-107); Potassium 3.4 mmol/L (3.5-5.1); Sodium 136 mmol/L (136-145)
[2023-03-03 02:42] LABS: Anion Gap 15 (5-15); Carbon Dioxide 20 mmol/L (20-30)
[2023-03-03 02:43] LABS: Calcium 6.7 mg/dL (8.7-10.4)
[2023-03-03 02:47] LABS: Glucose 184 mg/dL (74-106)
[2023-03-03 02:47] LABS: Base Excess -4.5 mmol/L (-2.0-2.0)
[2023-03-03 02:48] LABS: BUN/Creatinine Ratio 23.5 (10.0-20.0); Magnesium 1.9 mg/dL (1.6-2.6)
[2023-03-03 02:50] LABS: Phosphorus 8.5 mg/dL (2.4-5.1)
[2023-03-03 02:53] LABS: Blood Urea Nitrogen 119 mg/dL (9-23); INR 1.54 (0.9-1.15); Lactic Acid w/Reflex 2.2 mmol/L (0.4-2.0); Partial Thromboplastin Time 47.3 SEC (24.5-34.5); Prothrombin Time 15.7 sec (9.3-11.8)
[2023-03-03] MEDS ORDERED: DOPamine 1600MCG/ML D5W 250 ML IV ONE (04:40)
[2023-03-03] MEDS: NEOMYCIN-POLYM-HC 1% OTIC(EAR) SOLN 10ML LEFT EAR SCH ×3 (05:01→17:46)
[2023-03-03] MEDS: DOPamine 1600MCG/ML D5W 250 ML IV SCH ×3 (05:01→17:51)
[2023-03-03] MEDS: BRIMONIDINE 0.2% OPTH Soln 5ml RIGHTEYE SCH ×3 (05:02→21:41)
[2023-03-03] MEDS: DORZOLAMIDE HCL 2% OPTH(EYE) SOL 10ML RIGHTEYE SCH ×3 (05:02→21:41)
[2023-03-03] MEDS: BUMETANIDE 2.5mg/10ml (0.25 mg/ml) INJ IV SCH (05:06)
[2023-03-03] MEDS: ACCU-CHEK COMFORT CURVE STRIP VI SCH ×4 (06:13→21:37)
[2023-03-03] MEDS: InsuLIN REG 1unit/0.01ml Soln (100units/ml) SC SCH ×4 (06:16→21:47)
[2023-03-03 06:34] LABS: Base Excess -11.2 mmol/L (-2.0-2.0)
[2023-03-03] MEDS: EPINEPHrine HCL 250 ML IV SCH ×2 (06:39→12:33)
[2023-03-03] MEDS: VASOPRESSIN 20 UNITS in SODIUM CHL 0.9% 99 ML IV SCH ×2 (08:22→15:38)
[2023-03-03] MEDS: DOBUTamine 1000MCG/ML 250 ML IV SCH (08:40)
[2023-03-03 09:28] LABS: Base Excess -5.8 mmol/L (-2.0-2.0)
[2023-03-03] MEDS ORDERED: LEVALBUTEROL HCL 1.25 MG/3 ML NEB NEB PRN (09:45)
[2023-03-03] MEDS ORDERED: PANTOPRAZOLE 40 MG TAB PO SCH (10:00)
[2023-03-03] MEDS: CLOPIDOGREL BISULFATE 75 MG TAB PO SCH (10:00)
[2023-03-03] MEDS: CARVEDILOL 12.5 MG TAB PO SCH ×2 (10:00→21:36)
[2023-03-03] MEDS: FERROUS SULFATE 325mg EC TAB PO SCH ×2 (10:00→21:39)
[2023-03-03] MEDS: CYCLOPENTOLATE HCL 1% OPTH(EYE) SOL 2ML LEFTEYE SCH ×2 (10:00→21:43)
[2023-03-03] MEDS: OSELTAMIVIR 30 MG CAP PO SCH (10:00)
[2023-03-03] MEDS: DOCUSATE SOD 100 MG CAP PO SCH (10:00)
[2023-03-03] MEDS: ASPirin 81 mg TAB PO SCH (10:00)
[2023-03-03] MEDS: MIDAZOLAM DRIP 50 mg/50mL 50 ML IV SCH ×2 (11:08→15:30)
[2023-03-03] MEDS ORDERED: HEPARIN 1,000 UNITS/ml 1ML VIAL ONE (11:09)
[2023-03-03] MEDS: fentaNYL Drip 2500mCg/250mlNS 250 ML IV SCH (11:22)
[2023-03-03] MEDS: PANTOPRAZOLE 40mg/50ML NS AE 50 ML IV SCH ×3 (11:23→20:00)
[2023-03-03] MEDS: AZITHROMYCIN 500MG/ 250ML 250 ML IV SCH (11:23)
[2023-03-03] MEDS: TIMOLOL MAL 0.5% OPTH(EYE) SOL 5ML OP SCH ×2 (11:26→21:41)
[2023-03-03] MEDS: prednisoLONE ACETATE 1% OPTH SUSP 5ML LEFTEYE SCH (11:26)
[2023-03-03] MEDS: cefTRIAXone 1GM/50ML D5W 50 ML IV SCH (11:52)
[2023-03-03] MEDS ORDERED: HEPARIN 1,000 UNITS/ml 1ML VIAL IV ONE ×4 (12:15→13:00)
[2023-03-03] MEDS: SODIUM BICARBONATE 50ML VIAL 150 ML in SOD CHL 0.45% 1,000 ML IV SCH (12:36)
[2023-03-03] MEDS ORDERED: SODIUM CHL 0.9% 1000 ML BAG XX ONE (12:45)
[2023-03-03] MEDS ORDERED: SODIUM BICARBONATE 8.4% INJ 50ML SYRINGE IV ONE (13:24)
[2023-03-03] MEDS ORDERED: ATROPINE SULF 1 MG/10ml SYR IM ONE (13:24)
[2023-03-03] MEDS ORDERED: CALCIUM CHLOR(10%) 100MG/ML 10ML SYRINGE IV ONE (13:24)
[2023-03-03 13:45] LABS: Basophils # (auto) 0 10 ^3/uL (0-0.2); Eosinophils # (auto) 0 10 ^3/uL (0-0.8); Eosinophils % (auto) 0.2 % (0.0-7.0); Lymphocytes # (auto) 0.4 10 ^3/uL (0.4-5.4); Mean Corpuscular Volume 82.4 fL (80.0-100.0)
[2023-03-03 13:47] LABS: Basophils % (auto) 0.1 % (0.0-2.0); Hematocrit 23.8 % (41.0-53.0); Hemoglobin 8.1 g/dL (13.5-17.5); Lymphocytes % (auto) 4.3 % (10.0-50.0); Monocytes # (auto) 0.4 10 ^3/uL (0-1.3); Monocytes % (auto) 3.9 % (0.0-12.0); Neutrophils # (auto) 8.3 10 ^3/uL (1.6-8.6); Neutrophils % (auto) 91.5 % (37.0-80.0); Red Blood Cells 2.89 10^6/uL (4.5-5.90); Red Cell Distribution Width 13.7 % (11.8-14.3); White Blood Cell 9.1 10^3/uL (4.4-10.8)
[2023-03-03] MEDS: CLOTRIMAZOLE 1 % CREAM 15GM TOP SCH ×2 (15:26→21:37)
[2023-03-03] MEDS ORDERED: ARTIFICIAL TEAR OPTH(EYE) OINT 3.5GM EACHEYE PRN (17:45)
[2023-03-03] MEDS ORDERED: ROCURONIUM 10MG/ML 10ML VIAL IV PRN (17:45)
[2023-03-03] MEDS: FUROSEMIDE INJECTION 100 MG in D5W 5% 100 ML IV SCH (17:52)
[2023-03-03 18:30] LABS: Basophils # (auto) 0 10 ^3/uL (0-0.2); Basophils % (auto) 0.3 % (0.0-2.0); Eosinophils # (auto) 0 10 ^3/uL (0-0.8); Eosinophils % (auto) 0.5 % (0.0-7.0); Hematocrit 22.7 % (41.0-53.0); Hemoglobin 7.6 g/dL (13.5-17.5); Lymphocytes # (auto) 0.5 10 ^3/uL (0.4-5.4); Lymphocytes % (auto) 6.6 % (10.0-50.0); Mean Corpuscular Hemoglobin 27.3 pg (28.0-32.0); Mean Corpuscular Hgb Conc. 33.3 g/dL (32.0-36.0); Mean Corpuscular Volume 81.8 fL (80.0-100.0); Monocytes # (auto) 0.3 10 ^3/uL (0-1.3); Monocytes % (auto) 4.2 % (0.0-12.0); Neutrophils # (auto) 6.5 10 ^3/uL (1.6-8.6); Neutrophils % (auto) 88.4 % (37.0-80.0); Nucleated Red Blood Cells % 0.1 %; Red Blood Cells 2.78 10^6/uL (4.5-5.90); Red Cell Distribution Width 13.6 % (11.8-14.3); White Blood Cell 7.3 10^3/uL (4.4-10.8)
[2023-03-03] MEDS ORDERED: EPOETIN ALFA-EPBX 4,000 UNIT/ML VIAL SC ONE (21:00)
[2023-03-03] MEDS: PHENYLEPHRINE INJ 80 MG in SODIUM CHL 0.9% 242 ML IV SCH (21:30)
[2023-03-03] MEDS: NOREPINEPHRINE BITARTRATE 32 MG in SODIUM CHL 0.9% 218 ML IV SCH (21:30)
[2023-03-03] MEDS: LATANOPROST 0.005 % OPTH(EYE) SOL 2.5ML LEFTEYE SCH (21:42)
[2023-03-03] MEDS: ATRACURIUM BESYLATE 1,000 MG in D5W 5% 150 ML IV SCH (23:30)
[2023-03-04] VITALS: BP_SYST 121; BP_SYST 140; BP_DIAS 59; PULSE 86; PULSE 90; RESP 27; TEMP 99.1; O2SAT 100
[2023-03-04] MEDS: NEOMYCIN-POLYM-HC 1% OTIC(EAR) SOLN 10ML LEFT EAR SCH (00:01)
[2023-03-04] MEDS: DOBUTamine 1000MCG/ML 250 ML IV SCH (00:02)
[2023-03-04] MEDS: PANTOPRAZOLE 40mg/50ML NS AE 50 ML IV SCH (00:02)
[2023-03-04] MEDS: SODIUM BICARBONATE 50ML VIAL 150 ML in SOD CHL 0.45% 1,000 ML IV SCH (00:02)
[2023-03-04 00:28] VITALS: BP 123/60; PULSE 89; RESP 27; O2SAT 99
[2023-03-04 02:40] VITALS: BP 117/58; PULSE 91; RESP 27; O2SAT 100
[2023-03-04 03:58] LABS: Basophils # (auto) 0 10 ^3/uL (0-0.2); Eosinophils # (auto) 0.1 10 ^3/uL (0-0.8); Eosinophils % (auto) 1.7 % (0.0-7.0); Hemoglobin 7.3 g/dL (13.5-17.5); Lymphocytes # (auto) 0.6 10 ^3/uL (0.4-5.4); Monocytes # (auto) 0.2 10 ^3/uL (0-1.3); Neutrophils # (auto) 5.6 10 ^3/uL (1.6-8.6); Nucleated Red Blood Cells % 0.1 %; Red Cell Distribution Width 13.5 % (11.8-14.3); White Blood Cell 6.6 10^3/uL (4.4-10.8)
[2023-03-04 04:00] VITALS: PULSE 90; RESP 27; O2SAT 100
[2023-03-04 04:02] LABS: Basophils % (auto) 0.4 % (0.0-2.0); Hematocrit 21.5 % (41.0-53.0); Lymphocytes % (auto) 9.6 % (10.0-50.0); Mean Corpuscular Hemoglobin 27.3 pg (28.0-32.0); Mean Corpuscular Volume 80.3 fL (80.0-100.0); Monocytes % (auto) 3.1 % (0.0-12.0); Neutrophils % (auto) 85.2 % (37.0-80.0); Red Blood Cells 2.67 10^6/uL (4.5-5.90)
[2023-03-04 04:11] LABS: Alanine Aminotransferase 56 U/L (7-40); Albumin 2.6 g/dL (3.2-4.8); Alkaline Phosphatase 107 U/L (46-116); Anion Gap 16 (5-15); Aspartate Aminotransferase 119 U/L (13-40); BUN/Creatinine Ratio 26.3 (10.0-20.0); Calcium 6.2 mg/dL (8.7-10.4); Carbon Dioxide 22 mmol/L (20-30); Chloride 96 mmol/L (98-107); Glucose 165 mg/dL (74-106); Magnesium 1.7 mg/dL (1.6-2.6); Potassium 3.2 mmol/L (3.5-5.1); Sodium 134 mmol/L (136-145)
[2023-03-04 04:12] LABS: Bilirubin, Total 0.5 mg/dL (0.2-1.0); Phosphorus 7.2 mg/dL (2.4-5.1); Total Protein 4.8 g/dL (5.7-8.2)
[2023-03-04 04:16] VITALS: BP 130/64; PULSE 91; RESP 27; O2SAT 100
[2023-03-04] MEDS ORDERED: NOREPINEPHRINE 8 MG/250ML KIT 250 ML IV ONE (04:27)
[2023-03-04 04:55] LABS: Blood Urea Nitrogen 120 mg/dL (9-23)
[2023-03-04] MEDS ORDERED: AMIODARONE HCL (50 MG/ ML) 3 ML VIAL IV ONE (08:31)
[2023-03-04] MEDS ORDERED: EPINEPHrine HCL 1 MG/10 ML SYRG IV ONE (08:31)
[2023-03-04] MEDS ORDERED: ATROPINE SULF 1 MG/10ml SYR IM ONE (08:31)
[2023-03-04] MEDS ORDERED: CALCIUM CHLOR(10%) 100MG/ML 10ML SYRINGE IV ONE (08:31)
== END 2023-03-04 08:32 | DRG 321 ==
LOC: EDBD 09:37 → ER 09:37 → EDSEX 09:37 → TELE 18:55 → DOU IN ICU 03-02 12:46 → ICU WEST 03-02 22:08
PROVIDERS: ADMIT Nurse Practitioner Family; ATTEND Family Medicine
PROC: 027036Z Dilation of Coronary Artery, One Artery with Three Drug-eluting Intraluminal Devices, Percutaneous Approach (ICD-10-PCS; principal; 2023-03-02)
PROC: 4A023N7 Measurement of Cardiac Sampling and Pressure, Left Heart, Percutaneous Approach (ICD-10-PCS; 2023-03-02)
PROC: B211YZZ Fluoroscopy of Multiple Coronary Arteries using Other Contrast (ICD-10-PCS; 2023-03-02)
PROC: B215YZZ Fluoroscopy of Left Heart using Other Contrast (ICD-10-PCS; 2023-03-02)
PROC: B240ZZ3 Ultrasonography of Single Coronary Artery, Intravascular (ICD-10-PCS; 2023-03-02)
PROC: 5A09357 Assistance with Respiratory Ventilation, Less than 24 Consecutive Hours, Continuous Positive Airway Pressure (ICD-10-PCS; 2023-03-02)
PROC: 02HV33Z Insertion of Infusion Device into Superior Vena Cava, Percutaneous Approach (ICD-10-PCS; 2023-03-02)
PROC: B548ZZA Ultrasonography of Superior Vena Cava, Guidance (ICD-10-PCS; 2023-03-02)
PROC: 03HY32Z Insertion of Monitoring Device into Upper Artery, Percutaneous Approach (ICD-10-PCS; 2023-03-02)
PROC: 5A12012 Performance of Cardiac Output, Single, Manual (ICD-10-PCS; 2023-03-02)
PROC: 5A1935Z Respiratory Ventilation, Less than 24 Consecutive Hours (ICD-10-PCS; 2023-03-03)
PROC: 0BH17EZ Insertion of Endotracheal Airway into Trachea, Via Natural or Artificial Opening (ICD-10-PCS; 2023-03-03)
PROC: 05HM33Z Insertion of Infusion Device into Right Internal Jugular Vein, Percutaneous Approach (ICD-10-PCS; 2023-03-03)
PROC: B543ZZA Ultrasonography of Right Jugular Veins, Guidance (ICD-10-PCS; 2023-03-03)
PROC: 5A12012 Performance of Cardiac Output, Single, Manual (ICD-10-PCS; 2023-03-03)
PROC: 5A1D70Z Performance of Urinary Filtration, Intermittent, Less than 6 Hours Per Day (ICD-10-PCS; 2023-03-04)
DX: I21.4 Non-ST elevation (NSTEMI) myocardial infarction (principal); I50.23 Acute on chronic systolic (congestive) heart failure; J96.01 Acute respiratory failure with hypoxia; J10.08 Influenza due to other identified influenza virus with other specified pneumonia; J15.9 Unspecified bacterial pneumonia; N18.5 Chronic kidney disease, stage 5; N17.9 Acute kidney failure, unspecified; J98.11 Atelectasis; E87.21 Acute metabolic acidosis; I13.2 Hypertensive heart and chronic kidney disease with heart failure and with stage 5 chronic kidney disease, or end stage renal disease; I46.9 Cardiac arrest, cause unspecified; D63.1 Anemia in chronic kidney disease; B35.6 Tinea cruris; E11.22 Type 2 diabetes mellitus with diabetic chronic kidney disease; E11.649 Type 2 diabetes mellitus with hypoglycemia without coma; E87.5 Hyperkalemia; H54.8 Legal blindness, as defined in USA; I27.20 Pulmonary hypertension, unspecified; E66.9 Obesity, unspecified; E78.00 Pure hypercholesterolemia, unspecified; I25.10 Atherosclerotic heart disease of native coronary artery without angina pectoris; R19.7 Diarrhea, unspecified; Z20.822 Contact with and (suspected) exposure to COVID-19; I25.708 Atherosclerosis of coronary artery bypass graft(s), unspecified, with other forms of angina pectoris; I25.5 Ischemic cardiomyopathy; R57.0 Cardiogenic shock; R74.01 Elevation of levels of liver transaminase levels; D69.6 Thrombocytopenia, unspecified; H65.02 Acute serous otitis media, left ear; I25.2 Old myocardial infarction; Z82.49 Family history of ischemic heart disease and other diseases of the circulatory system; Z83.3 Family history of diabetes mellitus; Z99.2 Dependence on renal dialysis; Z79.899 Other long term (current) drug therapy; Z95.1 Presence of aortocoronary bypass graft; Z68.29 Body mass index [BMI] 29.0-29.9, adult
CPT/HCPCS: 36415; 36600; 71045; 76775; 80048; 80053; 80061; 81001; 82270; 82805; 82962; 83036; 83605; 83735; 83880; 84100; 84132; 84443; 84484; 85025; 85610; 85730; 87045; 87070; 87081; 87205; 87426; 87427; 87493; 87804; 90935; 92929; 92941; 92950; 92978; 93005; 93306; 93458; 94002; 94003; 94640; 94660; 96361; 96365; 99152; 99291; C1874; C1887; C9113; G0378; G9035; J0171; J1642; J1815; J2250; J2405; J2704; J7060; P9047; Q9967